=== PATIENT | female | born 1940 | race African-American/Black ===

== ENCOUNTER 2016-10-23 01:58 | Inpatient (IN) | payer MEDICARE, OTHER ==
[~2016-10-23] VITALS: Ht 172.7 cm; Wt 104.8 kg
[2016-10-23 02:30] LABS: BILIRUBIN,URINE NEGATIVE (NEG); GLUCOSE,URINE NEGATIVE (NEG); NITRITE,URINE NEGATIVE (NEG); PH,URINE 5.5; PROTEIN,URINE NEGATIVE (NEG-TRACE); UROBILINOGEN,URINE 0.2 mg/dL (0.2 mg/dL)
[2016-10-23] MEDS ORDERED: IV NORMAL SALINE 500ML BAG 500 ML IV ONE (02:30)
[2016-10-23 02:50] LABS: BACTERIA,URINE 0 /HPF (0-FEW); SQUAMOUS EPITHELIAL CELL,UR FEW /LPF; WBC,URINE OCC /HPF (0-4)
[2016-10-23 02:51] LABS: BASO # 0.1 x10^3/uL (0.0-0.2); BASO % 1 % (0-3); EOS % 0 % (0-3); HEMATOCRIT 37.6 % (36.0-47.0); HEMOGLOBIN 12.7 g/dL (12.0-15.5); LYMPH % 17 % (24-48); MEAN CORPUSCULAR HEMOGLOBIN 27 pg (25-35); MEAN CORPUSCULAR HGB CONC 34 g/dL (31-37); MEAN CORPUSCULAR VOLUME 80 fL (79-100); MONO % 4 % (0-9); NEUT % 78 % (31-73); PLATELET COUNT 274 x10^3/uL (140-400); RED BLOOD COUNT 4.69 x10^6/uL (3.50-5.40); RED CELL DISTRIBUTION WIDTH 17.2 % (11.5-14.5); WHITE BLOOD COUNT 6.2 x10^3/uL (4.0-11.0)
[2016-10-23 03:02] LABS: CALCIUM 9.5 mg/dL (8.5-10.1); CREATININE 1.1 mg/dL (0.6-1.0); GFR 58.7; POTASSIUM 4.6 mmol/L (3.5-5.1)
[2016-10-23 03:07] LABS: ALBUMIN 3.4 g/dL (3.4-5.0); ALBUMIN/GLOBULIN RATIO 0.8 (1.0-1.7); TOTAL BILIRUBIN 0.3 mg/dL (0.2-1.0); TOTAL PROTEIN 7.9 g/dL (6.4-8.2)
[2016-10-23 03:10] LABS: PROTHROMBIN TIME PATIENT 12.6 SEC (11.7-14.0)
[2016-10-23] MEDS ORDERED: VANCOMYCIN PER PHARMACY MC PRN (03:45)
[2016-10-23] MEDS ORDERED: PIP/TAZO PER PHARMACY MC PRN (03:45)
[2016-10-23] MEDS ORDERED: levOFLOXacin PER PHARMACY 1 EACH EACH MC PRN (03:45)
[2016-10-23] MEDS ORDERED: ONDANSETRON PF 4 MG/2 ML VIAL. IV PRN (04:00)
[2016-10-23] MEDS ORDERED: PIPERACILLIN/TAZOBACTAM 3.375 GM in IV NORMAL SALINE 50ML 50 ML IV ONE (04:00)
[2016-10-23] MEDS ORDERED: ASPIRIN 325 MG TABLET PO ONE (04:00)
[2016-10-23] MEDS ORDERED: ACETAMINOPHEN 325 MG TABLET. PO PRN (04:00)
[2016-10-23] MEDS ORDERED: VANCOMYCIN 2 GM in IV NORMAL SALINE 500ML BAG 500 ML IV ONE (04:30)
--- NOTE | 2016-10-23 04:33 | ACF ---
Admit Criteria Forms Admit Criteria Forms Admit Criteria Forms MENTAL STATUS CHANGE Clinical Indications for Inpatient Care (Place 'X' for any and all applicable criteria): Ongoing inpatient care may be needed for 1 or more of the following(1)(2)(3)(5)( 6): [ ]I. Suspected serious etiology (eg, medical disorder, RECONCILIATION MACHINE OPERATOR event) of altered mental status [ ]II. Danger to self or others not manageable at lower level of care [ ]III. Grave disability (eg, inability to perform self care necessary at lower level of care) [ ]IV. Agitation or inappropriate behavior interfering with care for primary condition (eg, attempting to discontinue lines or drains prematurely, unable to cooperate with respiratory care) [ ]V. Delirium [A] [D][E] as described by 1 or more of the following(26): [ ]a) Delirium due to alcohol or sedative [F] withdrawal [ ]b) Delirium of uncertain etiology that has not responded to appropriate empiric treatment [ ]c) Delirium that prevents performance of a life-sustaining function (eg, feeding or hydrating oneself) [X ]. General contraindications and/or Inappropriate clinical situations for Observational Care in patients with Mental Status Change, when ANY ONE of the following is required: [ X]a) Prediction of prolongation of LOS based on ANY ONE of the following may be considered as a contraindication for observational care 2, 3, 4, 5, 6, 7, 8, 9, 10, 11 [X ]i) Age > 65 yrs. [X ]ii) Patient arriving by ambulance [ ]iii) Patient with high acuity [ ]iv) Patient requiring vital sign monitoring [ ]v) Patient on IV medication [ ]b) Systolic blood pressures greater than or equal to 180mmHg 3, 12 [ ]c) Patient with altered mental status including delirium and other alteration of consciousness, (3) [ ]d) Patient whose discharge disposition will be to a penitentiary home or rehabilitation home should not be managed in Emergency Department Observation Unit. CMS rule requires 3 days hospital stay before such placement.3,13 [ ]e) Patient with failure to thrive due to broad array of etiologies 3,16,17 [ ]f) Inability to ambulate 3,14 Extended stay beyond goal length of stay for the primary condition may be needed until ALL of the following are present(3)(5): [ ]a) Underlying medical etiology of mental status change is absent, or has been established and adequately treated [ ]b) Danger to self or others is absent or manageable at lower level of care. [ ]c) Behavior crisis management, including physical or chemical restraints, is not required or available at lower level of car [ ]d) Substance or alcohol withdrawal is absent or manageable at lower level of care. [ ]e) Behavioral symptoms (eg, agitation, somnolence, inappropriate behavior) are absent, or are manageable at lower level of care. The original [facility] content created by [facility] has been revised. The portions of the content which have been revised are identified through the use of italic text or in bold, and [facility] has neither reviewed nor approved the modified material. All other unmodified content is copyright [facility]. Please see references footnoted in the original [facility] [employer] edition 2016 MARK PEDERSEN October 23, 2016 04:33
--- NOTE | 2016-10-23 04:39 | RAD ---
INDICATION: Altered mental status COMPARISON: None TECHNIQUE: Axial CT images obtained through the head. One or more of the following individualized dose reduction techniques were utilized for this examination: 1. Automated exposure control; 2. Adjustment of the mA and/or kV according to patient size; 3. Use of iterative reconstruction technique. FINDINGS: No midline shift. Ventricles and sulci are prominent. Basilar cistern patent. No gross hemorrhage or intracranial mass. No displaced skull fracture. Regions of low attenuation of the white matter. IMPRESSION: No acute intracranial hemorrhage. Regions of low attenuation of the white matter. Nonspecific but frequently secondary to chronic small vessel ischemic disease. Subcutaneous induration left frontal region, could be a small scalp contusion. Electronically signed by: Haseeb Meek (October 23, 2016 04:37:29)
[2016-10-23 04:40] VITALS: BP 133/60
--- NOTE | 2016-10-23 04:58 | PHYS DOC ---
Past Medical History Past Medical History: Diabetes-Type II, Hypertension, Renal Disease Additional Past Medical Histor: GENERALIZED WEAKNESS, OSTEOPOROSIS Past Surgical History: Appendectomy, Cholecystectomy, Hysterectomy Alcohol Use: None Drug Use: None Adult General Chief Complaint Chief Complaint: NEURO SYMPTOMS/DEFICITS HPI HPI Patient is a 76 year old female who presents with altered mental status. Patient sent for evaluation from [facility] where she was noted to be confused with possible facial droop, & slurred speech per the patient. Unknown time of symptom onset or last known normal. She thinks her speech has progressively worsened over days. She denies extremity numbness/weakness. Denies fevers/chills, headache, vision changes, chest pain, shortness of breath , abdominal pain, vomiting, diarrhea, dysuria. She has history of DM & HTN. PCP is at [facility]. Review of Systems Review of Systems Constitutional: Denies fever or chills Eyes: Denies change in visual acuity HENT: Denies nasal congestion or sore throat Respiratory: Denies cough or shortness of breath Cardiovascular: Denies chest pain or edema GI: Denies abdominal pain, nausea, vomiting, bloody stools or diarrhea : Denies dysuria or hematuria Musculoskeletal: Denies back pain or joint pain Integument: Denies rash or skin lesions Neurologic: Denies headache, reports slurred speech & facial droop Current Medications Current Medications Current Medications Medications (Trade) Dose Ordered Sig/Rose Start Time Stop Time Status Last Admin Dose Admin Sodium Chloride 500 ml @ 500 mls/hr 1X ONCE 10/23/16 02:30 10/23/16 03:29 DC 10/23/16 02:40 500 MLS/HR Allergies Allergies Allergies Coded Allergies Type Severity Reaction Last Updated Verified No Known Drug Allergies 10/23/16 No Physical Exam Physical Exam Constitutional: obese, agitated, non-toxic appearance. HENT: Normocephalic, atraumatic, bilateral external ears normal, oropharynx moist, no tonsillar enlargement/exudate, nose normal. appears to have slight right sided facial droop at the mouth, but normal symmetric smile. Eyes: PERRLA, EOMI, conjunctiva normal, no discharge. Neck: supple, no stridor. Cardiovascular: RRR, no murmurs, no edema. Lungs & Thorax: LCTAB, no wheezing, no respiratory distress. Abdomen: soft, nontender, nondistended. Skin: Warm, dry, no erythema, no rash. Back: No tenderness. Extremities: No tenderness, no edema. Neurologic: Alert and oriented X 3, CN2-12 grossly intact, symmetric strength/ sensation to UE & LE, refuses to participate in finger to nose, heel to mccann, palmar drift assessments. speech difficult to understand at times but quite clear during angry outbursts. Psychologic: agitated at times Current Patient Data Vital Signs Vital Signs Date Time Temp Pulse Resp B/P (MAP) Pulse Ox O2 Delivery O2 Flow Rate FiO2 10/23/16 03:00 78 22 187/87 (120) 94 Room Air 10/23/16 02:28 93.8 93.8 Lab Values Laboratory Tests Test 10/23/16 02:22 10/23/16 02:39 Urine Collection Type U cath Urine Color Yellow Urine Clarity Clear Urine pH 5.5 Urine Specific [place]ike 1.015 Urine Protein Negative mg/dL (NEG-TRACE) Urine Glucose (UA) Negative mg/dL (NEG) Urine Ketones (Stick) Negative mg/dL (NEG) Urine Blood Small (NEG) Urine Nitrite Negative (NEG) Urine Bilirubin Negative (NEG) Urine Urobilinogen Dipstick 0.2 mg/dL (0.2 mg/dL) Urine Leukocyte Esterase Negative (NEG) Urine RBC 3-5 /HPF (0-2) Urine WBC Occ /HPF (0-4) Urine Squamous Epithelial Cells Few /LPF Urine Bacteria 0 /HPF (0-FEW) Urine Mucus Mod /LPF White Blood Count 6.2 x10^3/uL (4.0-11.0) Red Blood Count 4.69 x10^6/uL (3.50-5.40) Hemoglobin 12.7 g/dL (12.0-15.5) Hematocrit 37.6 % (36.0-47.0) Mean Corpuscular Volume 80 fL (79-100) Mean Corpuscular Hemoglobin 27 pg (25-35) Mean Corpuscular Hemoglobin Concent 34 g/dL (31-37) Red Cell Distribution Width 17.2 % (11.5-14.5) H Platelet Count 274 x10^3/uL (140-400) Neutrophils (%) (Auto) 78 % (31-73) H Lymphocytes (%) (Auto) 17 % (24-48) L Monocytes (%) (Auto) 4 % (0-9) Eosinophils (%) (Auto) 0 % (0-3) Basophils (%) (Auto) 1 % (0-3) Neutrophils # (Auto) 4.8 x10^3uL (1.8-7.7) Lymphocytes # (Auto) 1.0 x10^3/uL (1.0-4.8) Monocytes # (Auto) 0.3 x10^3/uL (0.0-1.1) Eosinophils # (Auto) 0.0 x10^3/uL (0.0-0.7) Basophils # (Auto) 0.1 x10^3/uL (0.0-0.2) Prothrombin Time 12.6 SEC (11.7-14.0) Prothrombin Time INR 1.0 (0.8-1.1) PTT 32 SEC (24-38) Sodium Level 140 mmol/L (136-145) Potassium Level 4.6 mmol/L (3.5-5.1) Chloride Level 103 mmol/L (98-107) Carbon Dioxide Level 32 mmol/L (21-32) Anion Gap 5 (6-14) L Blood Urea Nitrogen 27 mg/dL (7-20) H Creatinine 1.1 mg/dL (0.6-1.0) H Estimated GFR (Cockcroft-Gault) 58.7 BUN/Creatinine Ratio 25 (6-20) H Glucose Level 165 mg/dL (70-99) H Lactic Acid Level 1.4 mmol/L (0.4-2.0) Calcium Level 9.5 mg/dL (8.5-10.1) Total Bilirubin 0.3 mg/dL (0.2-1.0) Aspartate Amino Transferase (AST) 23 U/L (15-37) Alanine Aminotransferase (ALT) 26 U/L (14-59) Alkaline Phosphatase 123 U/L (46-116) H Ammonia < 10 mcmol/L (11-34) L Troponin I Quantitative < 0.017 ng/mL (0.000-0.055) Total Protein 7.9 g/dL (6.4-8.2) Albumin 3.4 g/dL (3.4-5.0) Albumin/Globulin Ratio 0.8 (1.0-1.7) L Thyroid Stimulating Hormone (TSH) 0.775 uIU/mL (0.358-3.74) Salicylates Level < 2.8 mg/dL (2.8-20.0) L Salicylate Last Dose Date Unk Salicylate Last Dose Time Unk Acetaminophen Level 5.8 mcg/ml (10-30) L Acetaminophen Last Dose Date Unk Acetaminophen Last Dose Time Unk Laboratory Tests 10/23/16 02:39 Laboratory Tests 10/23/16 02:39 EKG EKG interpreted by me: NSR rate 75, no acute ST/T wave changes, Q waves in 3, aVF, V2-V3, normal intervals, no ectopy.[] Radiology/Procedures Radiology/Procedures PROCEDURE: CT HEAD WO CONTRAST INDICATION: Altered mental status COMPARISON: None TECHNIQUE: Axial CT images obtained through the head. One or more of the following individualized dose reduction techniques were utilized for this examination: 1. Automated exposure control; 2. Adjustment of the mA and/or kV according to patient size; 3. Use of iterative reconstruction technique. FINDINGS: No midline shift. Ventricles and sulci are prominent. Basilar cistern patent. No gross hemorrhage or intracranial mass. No displaced skull fracture. Regions of low attenuation of the white matter. IMPRESSION: No acute intracranial hemorrhage. Regions of low attenuation of the white matter. Nonspecific but frequently secondary to chronic small vessel ischemic disease. Subcutaneous induration left frontal region, could be a small scalp contusion. Electronically signed by: Haseeb Shaikh (October 23, 2016 04:37:29) DICTATED and SIGNED BY: HASEEB SHAIKH MD DATE: 10/23/16 0437 CXR: interpreted by me: cardiomegaly, suspect LLL infiltrate, no pneumothorax. [] Course & Med Decision Making Course & Med Decision Making Pertinent Labs and Imaging studies reviewed. (See chart for details) The patient presents with altered mental status. She is angry & reluctant to participate in exam. Found to be hypothermic, placed denis hugger & gave warm fluids. CXR shows LLL infiltrate, will obtain blood cultures & lactic acid given hypothermia, treat for healthcare associated pneumonia with vancomycin, zosyn, & levaquin. I do not appreciate definite neuro deficit on exam but will give aspirin here & consult neurology. In the absence of focal findings & unknown timeline of symptoms, this patient is not a candidate for TPA. Recommend admission to the hospital for further evaluation & treatment. The patient agrees with plan of care. Discussed with Dr. Gee who agrees to admit to inpatient status. The patient is admitted in stable condition. [] Dragon Disclaimer Dragon Disclaimer This electronic medical record was generated, in whole or in part, using a voice recognition dictation system. Departure Departure Impression: Primary Impression: Altered mental status Additional Impressions: Hypothermia Healthcare-associated pneumonia Slurred speech Essential hypertension Disposition: 09 ADMITTED INPATIENT Admitting Physician: Edna Gee Condition: STABLE Problem Qualifiers MAGED ARZOLA MD October 23, 2016 04:58
[2016-10-23] MEDS: fentaNYL PF VIAL 100 MCG/2 ML VIAL IV PRN ×3 (05:29→14:53)
--- NOTE | 2016-10-23 05:45 | ACF ---
Admission Forms Criteria MENTAL STATUS CHANGE Clinical Indications for Inpatient Care (Place 'X' for any and all applicable criteria): Ongoing inpatient care may be needed for 1 or more of the following(1)(2)(3)(5)( 6): [ ]I. Suspected serious etiology (eg, medical disorder, EMAIL CAMPAIGN SPECIALIST event) of altered mental status [ ]II. Danger to self or others not manageable at lower level of care [ ]III. Grave disability (eg, inability to perform self care necessary at lower level of care) [ ]IV. Agitation or inappropriate behavior interfering with care for primary condition (eg, attempting to discontinue lines or drains prematurely, unable to cooperate with respiratory care) [ ]V. Delirium [A] [D][E] as described by 1 or more of the following(26): [ ]a) Delirium due to alcohol or sedative [F] withdrawal [ ]b) Delirium of uncertain etiology that has not responded to appropriate empiric treatment [ ]c) Delirium that prevents performance of a life-sustaining function (eg, feeding or hydrating oneself) [X]. General contraindications and/or Inappropriate clinical situations for Observational Care in patients with Mental Status Change, when ANY ONE of the following is required: [ ]a) Prediction of prolongation of LOS based on ANY ONE of the following may be considered as a contraindication for observational care 2, 3, 4, 5, 6, 7, 8, 9, 10, 11 [ ]i) Age > 65 yrs. [ ]ii) Patient arriving by ambulance [ ]iii) Patient with high acuity [ ]iv) Patient requiring vital sign monitoring [ ]v) Patient on IV medication [X]b) Systolic blood pressures greater than or equal to 180mmHg 3, 12 [ ]c) Patient with altered mental status including delirium and other alteration of consciousness, (3) [ ]d) Patient whose discharge disposition will be to a retirement home or rehabilitation home should not be managed in Emergency Department Observation Unit. CMS rule requires 3 days hospital stay before such placement.3,13 [ ]e) Patient with failure to thrive due to broad array of etiologies 3,16,17 [ ]f) Inability to ambulate 3,14 Extended stay beyond goal length of stay for the primary condition may be needed until ALL of the following are present(3)(5): [ ]a) Underlying medical etiology of mental status change is absent, or has been established and adequately treated [ ]b) Danger to self or others is absent or manageable at lower level of care. [ ]c) Behavior crisis management, including physical or chemical restraints, is not required or available at lower level of car [ ]d) Substance or alcohol withdrawal is absent or manageable at lower level of care. [ ]e) Behavioral symptoms (eg, agitation, somnolence, inappropriate behavior) are absent, or are manageable at lower level of care. The original [facility] [employer] content created by [facility] [employer] has been revised. The portions of the content which have been revised are identified through the use of italic text or in bold, and [facility] has neither reviewed nor approved the modified material. All other unmodified content is copyright [facility] [employer]. Please see references footnoted in the original [facility] edition 2016 Admission Criteria Met?: Yes DANIKA FLORES October 23, 2016 05:45
[2016-10-23] MEDS ORDERED: MAGNESIUM HYDROXIDE 2,400 MG/30 ML ORAL.SUSP. PO PRN (06:00)
[2016-10-23] MEDS ORDERED: SODIUM PHOSPHATES 19/7GM 133 ML ENEMA. PR PRN (06:00)
[2016-10-23] MEDS ORDERED: BISACODYL 10 MG SUPP.RECT. PR PRN (06:00)
[2016-10-23] MEDS ORDERED: POLYVINYL ALCOHOL 1.4% OPHTH SOLUTION 15ML BOTTLE. OU PRN (06:00)
[2016-10-23] MEDS ORDERED: MAG HYDROX/ALUMINUM HYD/SIMETH 30 ML ORAL.SUSP PO PRN (06:00)
[2016-10-23] MEDS ORDERED: ACETAMINOPHEN 500 MG TABLET PO PRN (06:00)
[2016-10-23] MEDS ORDERED: MECLIZINE HCL 12.5 MG TABLET. PO PRN (06:00)
--- NOTE | 2016-10-23 06:28 | EKG ---
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
[2016-10-23 07:00] VITALS: BP 117/60
[2016-10-23] MEDS ORDERED: SODIUM PHOSPHATES 19/7GM 133 ML ENEMA. PR ONE (07:00)
[2016-10-23] MEDS ORDERED: BISACODYL 10 MG SUPP.RECT. PR ONE (07:00)
[2016-10-23] MEDS ORDERED: ACETAMINOPHEN/CODEINE 300/30MG TABLET. PO ONE (07:00)
--- NOTE | 2016-10-23 07:33 | RAD ---
Portable chest, 10/23/2016: History: Altered mental status Comparison is made to a study from 11/11/2004. The heart is at the upper limits of normal in size. The pulmonary vascularity is normal. There is mild streaky atelectasis in the lung bases with partial obscuration of the left hemidiaphragm. The upper lung sarkar are clear. No pleural fluid is seen. Moderate spurring is present in the spine. There are moderate degenerative changes at both shoulders. A nonspecific sclerotic focus is partially visualized in the proximal left humerus. IMPRESSION: Mild bibasilar atelectasis.
[2016-10-23] MEDS: ASPIRIN 325 MG TABLET PO SCH (08:00)
--- NOTE | 2016-10-23 08:09 | PDOC1 ---
History and Physical Date of Admission Date of Admission DATE: 10/23/16 TIME: 08:03 Identification/Chief Complaint Chief Complaint slurred speech Problems: Source Source: Chart review, Patient History of Present Illness History of Present Illness Miss Boggs is a 76 year old female who presents with altered mental status. She has multiple complaints about the service at [facility], and has mult complaints this AM about how we are checking her blood sugar and how we need to get her up and feed her. She was sent for evaluation from [facility] where she was noted to be confused with possible facial droop, & slurred speech. She reports all of these are resolved, and she feels well. She thinks she just needs some food and a wheelchair, but seems total assist to transfer per nusing. Reports her speech had progressively worsened over days. She denies extremity numbness/weakness. PCP is at Past Medical History Cardiovascular: CHF, HTN Musculoskeletal: low back pain Endocrine: Diabetes Family History Family History: Diabetes Social History Smoke: No ALCOHOL: none Drugs: None Current Problem List Problem List Problems Medical Problems: (1) Altered mental status Status: Acute (2) Essential hypertension Status: Acute (3) Healthcare-associated pneumonia Status: Acute (4) Hypothermia Status: Acute (5) Slurred speech Status: Acute Problems: Current Medications Current Medications Current Medications Sodium Chloride 500 ml @ 500 mls/hr 1X ONCE IV Last administered on 02:40; Start 10/23/16 at 02:30; Stop 10/23/16 at 03:29; Status DC Aspirin (Afshin Aspirin) 325 mg 1X ONCE PO Last administered on 10/23/16 04:00 ; Start 10/23/16 at 04:00; Stop 10/23/16 at 04:01; Status DC Vancomycin HCl (Vanco Per Pharmacy) 1 each PRN DAILY PRN MC SEE COMMENTS Last administered on 10/23/16 06:01; Start 10/23/16 at 03:45 Piperacillin Sod/ Tazobactam Sod (Zosyn Per Pharmacy) 1 each PRN DAILY PRN MC SEE COMMENTS; Start 10/23/16 at 03:45 Levofloxacin/ Dextrose (Levaquin Per Pharmacy) 1 each PRN DAILY PRN MC SEE COMMENTS; Start 10/23/16 at 03:45 Vancomycin HCl 2 gm/Sodium Chloride 500 ml @ 250 mls/hr 1X ONCE IV Last administered on 10/23/16 05:34; Start 10/23/16 at 04:30; Stop 10/23/16 at 06:29 ; Status DC Piperacillin Sod/ Tazobactam Sod 3.375 gm/Sodium Chloride 50 ml @ 100 mls/hr 1X ONCE IV Last administered on 10/23/16 04:00; Start 10/23/16 at 04:00; Stop 10/23/16 at 04:29; Status DC Levofloxacin/ Dextrose 150 ml @ 100 mls/hr 1X ONCE IV Last administered on 05:33; Start 10/23/16 at 05:00; Stop 10/23/16 at 06:29; Status DC Ondansetron HCl (Zofran) 4 mg PRN Q8HRS PRN IV NAUSEA/VOMITING; Start 10/23/16 at 04:00; Stop 10/24/16 at 03:59 Fentanyl Citrate (Fentanyl 2ml Vial) 50 mcg PRN Q2HR PRN IV SEVERE PAIN Last administered on 10/23/16 05:29; Start 10/23/16 at 04:00; Stop 10/24/16 at 03:59 Acetaminophen (Tylenol) 650 mg PRN Q4HRS PRN PO FEVER; Start 10/23/16 at 04:00 ; Stop 10/24/16 at 03:59 Levofloxacin/ Dextrose 150 ml @ 100 mls/hr Q24H IV ; Start 10/24/16 at 05:00 Piperacillin Sod/ Tazobactam Sod 3.375 gm/Sodium Chloride 50 ml @ 100 mls/hr Q6HRS IV ; Start 10/23/16 at 12:00 Vancomycin HCl 1.5 gm/Sodium Chloride 500 ml @ 250 mls/hr Q24H IV ; Start 10/24 at 06:00 Vancomycin HCl 1 each 1X ONCE MC ; Start 10/25/16 at 05:30; Stop 10/25/16 at 05 :31 Baclofen (Lioresal) 5 mg TID PO ; Start 10/23/16 at 09:00 Celecoxib (CeleBREX) 200 mg DAILY PO ; Start 10/23/16 at 09:00 Carvedilol (Coreg) 6.25 mg BIDWMEALS PO ; Start 10/23/16 at 08:00 Acetaminophen (Tylenol) 650 mg PRN Q6HRS PRN PO MILD PAIN / TEMP; Start at 06:00 Amlodipine Besylate (Norvasc) 10 mg DAILY PO ; Start 10/23/16 at 09:00 Losartan Potassium (Cozaar) 100 mg DAILY PO ; Start 10/23/16 at 09:00 Ergocalciferol (Vitamin D2) 50,000 unit WEEKLY PO ; Start 10/23/16 at 09:00 Multi-Ingred Cream/Lotion/Oil/ Oint (Hydrocerin) 1 fabian DAILY08 TP ; Start at 08:00 Diclofenac Sodium (Voltaren) 1 fabian TID TP ; Start 10/23/16 at 09:00 Polyethylene Glycol (miraLAX PACKET) 17 gm DAILY PO ; Start 10/23/16 at 09:00 Docusate Sodium (Colace) 100 mg DAILY PO ; Start 10/23/16 at 09:00 Artificial Tears (Artificial Tears) 1 drop PRN Q24HRS PRN OU DRY EYE; Start at 06:00 Artificial Tears (Artificial Tears) 1 drop TID OU ; Start 10/23/16 at 09:00 Lidocaine (Lidoderm) 1 patch DAILY TD ; Start 10/23/16 at 09:00 Furosemide (Lasix) 60 mg DAILY PO ; Start 10/23/16 at 09:00 Linagliptin (Tradjenta) 5 mg DAILY PO ; Start 10/23/16 at 09:00 Duloxetine HCl (Cymbalta) 60 mg DAILY PO ; Start 10/23/16 at 09:00 Aspirin (Afshin Aspirin) 81 mg DAILYWBKFT PO ; Start 10/23/16 at 08:00 Atorvastatin Calcium (Lipitor) 40 mg QHS PO ; Start 10/23/16 at 21:00 Magnesium Hydroxide (Milk Of Magnesia) 2,400 mg PRN DAILY PRN PO CONSTIPATION; Start 10/23/16 at 06:00 Bisacodyl (Dulcolax Supp) 10 mg PRN DAILY PRN [place] CONSTIPATION; Start 10/23/16 at 06:00 Sodium Monofluorophosphate (Fleet Adult) 133 ml PRN DAILY PRN KS CONSTIPATION; Start 10/23/16 at 06:00 Al Hydroxide/Mg Hydroxide (Mylanta Plus Xs) 30 ml PRN Q4HRS PRN PO HEARTBURN / GAS; Start 10/23/16 at 06:00 Bisacodyl (Dulcolax Supp) 10 mg 1X ONCE KS ; Start 10/23/16 at 07:00; Stop at 07:01; Status DC Sodium Monofluorophosphate (Fleet Adult) 133 ml 1X ONCE KS ; Start 10/23/16 at 07:00; Stop 10/23/16 at 07:01; Status DC Acetaminophen/ Codeine Phosphate (Tylenol #3) 1 tab 1X ONCE PO ; Start at 07:00; Stop 10/23/16 at 07:01; Status DC Acetaminophen/ Hydrocodone Bitart (Lortab 5/325) 1 tab PRN Q8HRS PRN PO SEVERE PAIN; Start 10/23/16 at 06:00 Meclizine HCl (Antivert) 25 mg PRN Q8HRS PRN PO DIZZINESS; Start 10/23/16 at 06 :00 Insulin Detemir (Levemir) 30 units QHS SQ ; Start 10/23/16 at 21:00 Insulin Aspart (NovoLOG) 15 units TIDAC SQ ; Start 10/23/16 at 07:30 Allergies Allergies: Coded Allergies: No Known Drug Allergies (Unverified , 10/23/16) ROS Review of System Denies fevers/chills, headache, vision changes, chest pain, shortness of breath , abdominal pain, vomiting, diarrhea, dysuria. General: No: Chills, Night Sweats, Fatigue, Malaise, Appetite, Other PSYCHOLOGICAL ROS: YES: Irritablity, Sleep disturbances, No: Anxiety, Behavioral Disorder, Concentration difficultie, Decreased libido , Depression, Disorientation, Hallucinations, Hostility, Memory difficulties, Mood Swings, Obsessive thoughts, Other Eyes: No Blurry vision, No Decreased vision, No Double vision, No Dry eyes, No Excessive tearing, No Eye Pain, No Itchy Eyes, No Loss of vision, No Photophobia , No Scotomata, No Uses contacts, No Uses glasses, No Other HEENT: No: Heacaches, Visual Changes, Hearing change, Nasal congestion, Nasal discharge, Oral lesions, Sinus pain, Sore Throat, Epistaxis, Sneezing, Snoring, Tinnitus, Vertigo, Vocal changes, Other Cardiovascular: No Chest Pain, No Palpitations, No Orthopnea, No Paroxysmal Noc. Dyspnea, No Edema, No Lt Headedness, No Other Gastrointestinal: Yes Nausea, No Vomiting, No Abdominal Pain, No Diarrhea, No Constipation, No Melena, No Hematochezia, No Other Genitourinary: No Dysuria, No Frequency, No Incontinence, No Hematuria, No Retention, No Discharge, No Urgency, No Pain, No Flank Pain, No Other, No , No , No , No , No , No , No Musculoskeletal: No Gait Disturbance, No Joint Pain, No Joint Stiffness, No Joint Swelling, No Muscle Pain, No Muscular Weakness, No Pain In:, No Swelling In:, No Other Neurological: No Behavorial Changes, No Bowel/Bladder ControlChng, No Confusion , No Dizziness, No Gait Disturbance, No Headaches, No Impaired Coord/balance, No Memory Loss, No Numbness/Tingling, No Seizures, No Speech Problems, No Tremors, No Visual Changes, No Weakness, No Other Skin: Yes Dry Skin, No Eczema, No Hair Changes, No Lumps, No Mole Changes, No Mottling, No Nail Changes, No Pruritus, No Rash, No Skin Lesion Changes, No Other, No Acne Physical Exam General: Alert, Oriented X3, No acute distress, Other (not very cooperative) HEENT: Atraumatic, PERRLA, EOMI, Mucous membr. moist/pink, Other (oxpthalmos) Lungs: Clear to auscultation Heart: S1S2, no murmurs Abdomen: Normal bowel sounds, Soft Extremities: No clubbing, Normal pulses Skin: No rashes Neuro: Normal gait, Sensation intact, Cranial nerves 3-12 NL Vitals Vitals Vital Signs Date Time Temp Pulse Resp B/P (MAP) Pulse Ox O2 Delivery O2 Flow Rate FiO2 10/23/16 06:50 Room Air 10/23/16 05:59 20 100 10/23/16 04:40 97.5 96 133/60 (84) 97.5 Labs Labs Laboratory Tests Test 10/23/16 02:22 10/23/16 02:39 Urine Collection Type U cath Urine Color Yellow Urine Clarity Clear Urine pH 5.5 Urine Specific [place] 1.015 Urine Protein Negative mg/dL (NEG-TRACE) Urine Glucose (UA) Negative mg/dL (NEG) Urine Ketones (Stick) Negative mg/dL (NEG) Urine Blood Small (NEG) Urine Nitrite Negative (NEG) Urine Bilirubin Negative (NEG) Urine Urobilinogen Dipstick 0.2 mg/dL (0.2 mg/dL) Urine Leukocyte Esterase Negative (NEG) Urine RBC 3-5 /HPF (0-2) Urine WBC Occ /HPF (0-4) Urine Squamous Epithelial Cells Few /LPF Urine Bacteria 0 /HPF (0-FEW) Urine Mucus Mod /LPF White Blood Count 6.2 x10^3/uL (4.0-11.0) Red Blood Count 4.69 x10^6/uL (3.50-5.40) Hemoglobin 12.7 g/dL (12.0-15.5) Hematocrit 37.6 % (36.0-47.0) Mean Corpuscular Volume 80 fL (79-100) Mean Corpuscular Hemoglobin 27 pg (25-35) Mean Corpuscular Hemoglobin Concent 34 g/dL (31-37) Red Cell Distribution Width 17.2 % (11.5-14.5) Platelet Count 274 x10^3/uL (140-400) Neutrophils (%) (Auto) 78 % (31-73) Lymphocytes (%) (Auto) 17 % (24-48) Monocytes (%) (Auto) 4 % (0-9) Eosinophils (%) (Auto) 0 % (0-3) Basophils (%) (Auto) 1 % (0-3) Neutrophils # (Auto) 4.8 x10^3uL (1.8-7.7) Lymphocytes # (Auto) 1.0 x10^3/uL (1.0-4.8) Monocytes # (Auto) 0.3 x10^3/uL (0.0-1.1) Eosinophils # (Auto) 0.0 x10^3/uL (0.0-0.7) Basophils # (Auto) 0.1 x10^3/uL (0.0-0.2) Prothrombin Time 12.6 SEC (11.7-14.0) Prothromb Time International Ratio 1.0 (0.8-1.1) Activated Partial Thromboplast Time 32 SEC (24-38) Sodium Level 140 mmol/L (136-145) Potassium Level 4.6 mmol/L (3.5-5.1) Chloride Level 103 mmol/L (98-107) Carbon Dioxide Level 32 mmol/L (21-32) Anion Gap 5 (6-14) Blood Urea Nitrogen 27 mg/dL (7-20) Creatinine 1.1 mg/dL (0.6-1.0) Estimated GFR (Cockcroft-Gault) 58.7 BUN/Creatinine Ratio 25 (6-20) Glucose Level 165 mg/dL (70-99) Lactic Acid Level 1.4 mmol/L (0.4-2.0) Calcium Level 9.5 mg/dL (8.5-10.1) Total Bilirubin 0.3 mg/dL (0.2-1.0) Aspartate Amino Transf (AST/SGOT) 23 U/L (15-37) Alanine Aminotransferase (ALT/SGPT) 26 U/L (14-59) Alkaline Phosphatase 123 U/L (46-116) Ammonia < 10 mcmol/L (11-34) Troponin I Quantitative < 0.017 ng/mL (0.000-0.055) Total Protein 7.9 g/dL (6.4-8.2) Albumin 3.4 g/dL (3.4-5.0) Albumin/Globulin Ratio 0.8 (1.0-1.7) Thyroid Stimulating Hormone (TSH) 0.775 uIU/mL (0.358-3.74) Salicylates Level < 2.8 mg/dL (2.8-20.0) Salicylate Last Dose Date Unk Salicylate Last Dose Time Unk Acetaminophen Level 5.8 mcg/ml (10-30) Acetaminophen Last Dose Date Unk Acetaminophen Last Dose Time Unk Laboratory Tests Test 10/23/16 02:22 10/23/16 02:39 Urine Collection Type U cath Urine Color Yellow Urine Clarity Clear Urine pH 5.5 Urine Specific [place] 1.015 Urine Protein Negative mg/dL (NEG-TRACE) Urine Glucose (UA) Negative mg/dL (NEG) Urine Ketones (Stick) Negative mg/dL (NEG) Urine Blood Small (NEG) Urine Nitrite Negative (NEG) Urine Bilirubin Negative (NEG) Urine Urobilinogen Dipstick 0.2 mg/dL (0.2 mg/dL) Urine Leukocyte Esterase Negative (NEG) Urine RBC 3-5 /HPF (0-2) Urine WBC Occ /HPF (0-4) Urine Squamous Epithelial Cells Few /LPF Urine Bacteria 0 /HPF (0-FEW) Urine Mucus Mod /LPF White Blood Count 6.2 x10^3/uL (4.0-11.0) Red Blood Count 4.69 x10^6/uL (3.50-5.40) Hemoglobin 12.7 g/dL (12.0-15.5) Hematocrit 37.6 % (36.0-47.0) Mean Corpuscular Volume 80 fL (79-100) Mean Corpuscular Hemoglobin 27 pg (25-35) Mean Corpuscular Hemoglobin Concent 34 g/dL (31-37) Red Cell Distribution Width 17.2 % (11.5-14.5) Platelet Count 274 x10^3/uL (140-400) Neutrophils (%) (Auto) 78 % (31-73) Lymphocytes (%) (Auto) 17 % (24-48) Monocytes (%) (Auto) 4 % (0-9) Eosinophils (%) (Auto) 0 % (0-3) Basophils (%) (Auto) 1 % (0-3) Neutrophils # (Auto) 4.8 x10^3uL (1.8-7.7) Lymphocytes # (Auto) 1.0 x10^3/uL (1.0-4.8) Monocytes # (Auto) 0.3 x10^3/uL (0.0-1.1) Eosinophils # (Auto) 0.0 x10^3/uL (0.0-0.7) Basophils # (Auto) 0.1 x10^3/uL (0.0-0.2) Prothrombin Time 12.6 SEC (11.7-14.0) Prothromb Time International Ratio 1.0 (0.8-1.1) Activated Partial Thromboplast Time 32 SEC (24-38) Sodium Level 140 mmol/L (136-145) Potassium Level 4.6 mmol/L (3.5-5.1) Chloride Level 103 mmol/L (98-107) Carbon Dioxide Level 32 mmol/L (21-32) Anion Gap 5 (6-14) Blood Urea Nitrogen 27 mg/dL (7-20) Creatinine 1.1 mg/dL (0.6-1.0) Estimated GFR (Cockcroft-Gault) 58.7 BUN/Creatinine Ratio 25 (6-20) Glucose Level 165 mg/dL (70-99) Lactic Acid Level 1.4 mmol/L (0.4-2.0) Calcium Level 9.5 mg/dL (8.5-10.1) Total Bilirubin 0.3 mg/dL (0.2-1.0) Aspartate Amino Transf (AST/SGOT) 23 U/L (15-37) Alanine Aminotransferase (ALT/SGPT) 26 U/L (14-59) Alkaline Phosphatase 123 U/L (46-116) Ammonia < 10 mcmol/L (11-34) Troponin I Quantitative < 0.017 ng/mL (0.000-0.055) Total Protein 7.9 g/dL (6.4-8.2) Albumin 3.4 g/dL (3.4-5.0) Albumin/Globulin Ratio 0.8 (1.0-1.7) Thyroid Stimulating Hormone (TSH) 0.775 uIU/mL (0.358-3.74) Salicylates Level < 2.8 mg/dL (2.8-20.0) Salicylate Last Dose Date Unk Salicylate Last Dose Time Unk Acetaminophen Level 5.8 mcg/ml (10-30) Acetaminophen Last Dose Date Unk Acetaminophen Last Dose Time Unk VTE Prophylaxis Ordered VTE Prophylaxis Devices: Yes VTE Pharmacological Prophylaxi: No Assessment/Plan Assessment/Plan acute weakness and slurred speech, pt reports improved TIA, w/u and consult Neuro gen weakness and debility DM2, PT and OT and speech SHARITA GARCIA MD October 23, 2016 08:09
[2016-10-23] MEDS ORDERED: ERGOCALCIFEROL (VITAMIN D2) 50,000 UNIT CAPSULE. PO SCH (09:00)
[2016-10-23] MEDS: CELECOXIB 200 MG CAPSULE. PO SCH (09:15)
[2016-10-23] MEDS: DULoxetine HCL 30 MG CAPSULE.DR PO SCH (09:17)
[2016-10-23] MEDS: BACLOFEN 10 MG TABLET. PO SCH ×3 (09:17→20:43)
[2016-10-23] MEDS: LINAGLIPTIN 5 MG TABLET PO SCH (09:18)
[2016-10-23] MEDS: amLODIPine BESYLATE 10 MG TABLET PO SCH (09:18)
[2016-10-23] MEDS: DOCUSATE SODIUM 100 MG CAPSULE. PO SCH (09:18)
[2016-10-23] MEDS: FUROSEMIDE 40 MG TABLET. PO SCH (09:18)
[2016-10-23] MEDS: LOSARTAN POTASSIUM 50 MG TABLET. PO SCH (09:18)
[2016-10-23] MEDS: CARVEDILOL 6.25 MG TABLET. PO SCH ×2 (09:19→18:25)
[2016-10-23] MEDS: MINERAL OIL/PETROLATUM TOPICAL CREAM 113GM JAR. TP SCH (09:20)
[2016-10-23] MEDS: DICLOFENAC SODIUM 1% TOPICAL GEL 100GM TUBE. TP SCH ×3 (09:20→20:42)
[2016-10-23] MEDS: POLYETHYLENE GLYCOL 3350 17 GM PACKET. PO SCH (09:20)
[2016-10-23] MEDS: LIDOCAINE (700MG/PATCH) PATCH. TD SCH (09:21)
[2016-10-23] MEDS: POLYVINYL ALCOHOL 1.4% OPHTH SOLUTION 15ML BOTTLE. OU SCH ×3 (09:22→20:42)
--- NOTE | 2016-10-23 09:27 | RAD ---
Carotid ultrasound, 10/23/2016: History: TIA Duplex evaluation of the carotid arteries in neck was performed including grayscale, color-flow and spectral Doppler analysis. There is moderate atherosclerotic plaquing at the right carotid bifurcation and to a lesser degree on the left. The plaques are partially calcified. There is a velocity elevation in the right internal carotid artery up to 164 cm/s. The end-diastolic velocity at that level is 17 cm/s. The internal carotid artery to common carotid artery ratio is 1.2. The peak systolic velocity suggest narrowing in the 50-70% diameter range while the end diastolic velocity and the internal carotid artery to common carotid artery ratio suggests a lesser degree of narrowing. Correlation with the color images suggests that the narrowing is probably in the 0-50% diameter range. There is a moderate velocity acceleration in the proximal right external carotid artery up to 194 cm/s. On the left, the peak systolic velocity in the internal carotid artery is 94 cm/s with an end-diastolic velocity of 16 cm/s. The internal carotid to common carotid artery ratio on the left is 0.70. Antegrade flow is present in both vertebral arteries in the neck. IMPRESSION: 1. Moderate atherosclerotic plaquing at the right carotid bifurcation with underlying luminal narrowing in the proximal internal carotid artery in the 0-50% diameter range. 2. Doppler findings suggesting moderate stenosis at the origin of the right external carotid artery. 3. Mild atherosclerotic plaquing of the left carotid bifurcation with underlying luminal narrowing in the 0-50% diameter range. Note: Stenosis calculations for CT, MRA and conventional angiography are based upon determination of the distal ICA diameter in accordance with the NASCET methodology. Stenosis calculations for Doppler studies are derived from validated velocity criteria which are known to correlate with NASCET methodology of determining stenosis.
[2016-10-23] MEDS: INSULIN ASPART 300 UNITS/3 ML INSULN.PEN SQ SCH ×3 (09:39→18:30)
--- NOTE | 2016-10-23 10:03 | PDOC ---
Provider Note Provider Note dictated LLL atelectasis dc all antibiotics dc to skill IS REBECCA DE LA O MD October 23, 2016 10:03
[2016-10-23 11:00] VITALS: BP 118/42
--- NOTE | 2016-10-23 11:46 | PDOC2 ---
NEUROLOGY CONSULT Date of Admission Date of Admission DATE: 10/23/16 TIME: 11:40 Reason for Consult Reason for Consult: Altered mental status Referring Physician Referring Physician: Dr. Sands Source Source: Chart review, Patient History of Present Illness History of Present Illness The patient is a 76-year-old right-handed female transferred from [facility] with altered mental status, possible slurred speech and facial droop, side unknown. She says that she feels fine now. She feels like she is dehydrated. She admits she has not been eating well. She thinks she may have had some dysarthria off and on for several days. She has had strokes in the past but made full recovery. Past Medical History Cardiovascular: CHF, HTN GI: Constipation, GERD Psych: Anxiety, Depression Musculoskeletal: Osteoarthritis Endocrine: Diabetes, Osteoporosis Past Surgical History Past Surgical History: No pertinent history Family History Family History: No pertinent hx Social History Social History , no tobacco or alcohol, usually gets around with a wheelchair. Current Medications Current Medications Current Medications Sodium Chloride 500 ml @ 500 mls/hr 1X ONCE IV Last administered on 02:40; Start 10/23/16 at 02:30; Stop 10/23/16 at 03:29; Status DC Aspirin (Afshin Aspirin) 325 mg 1X ONCE PO Last administered on 10/23/16 04:00 ; Start 10/23/16 at 04:00; Stop 10/23/16 at 04:01; Status DC Vancomycin HCl (Vanco Per Pharmacy) 1 each PRN DAILY PRN MC SEE COMMENTS Last administered on 10/23/16 06:01; Start 10/23/16 at 03:45; Stop 10/23/16 at 10:07 ; Status DC Piperacillin Sod/ Tazobactam Sod (Zosyn Per Pharmacy) 1 each PRN DAILY PRN MC SEE COMMENTS; Start 10/23/16 at 03:45; Stop 10/23/16 at 10:56; Status DC Levofloxacin/ Dextrose (Levaquin Per Pharmacy) 1 each PRN DAILY PRN MC SEE COMMENTS; Start 10/23/16 at 03:45; Stop 10/23/16 at 10:56; Status DC Vancomycin HCl 2 gm/Sodium Chloride 500 ml @ 250 mls/hr 1X ONCE IV Last administered on 10/23/16 05:34; Start 10/23/16 at 04:30; Stop 10/23/16 at 06:29 ; Status DC Piperacillin Sod/ Tazobactam Sod 3.375 gm/Sodium Chloride 50 ml @ 100 mls/hr 1X ONCE IV Last administered on 10/23/16 04:00; Start 10/23/16 at 04:00; Stop 10/23/16 at 04:29; Status DC Levofloxacin/ Dextrose 150 ml @ 100 mls/hr 1X ONCE IV Last administered on 05:33; Start 10/23/16 at 05:00; Stop 10/23/16 at 06:29; Status DC Ondansetron HCl (Zofran) 4 mg PRN Q8HRS PRN IV NAUSEA/VOMITING; Start 10/23/16 at 04:00; Stop 10/24/16 at 03:59 Fentanyl Citrate (Fentanyl 2ml Vial) 50 mcg PRN Q2HR PRN IV SEVERE PAIN Last administered on 10/23/16 05:29; Start 10/23/16 at 04:00; Stop 10/24/16 at 03:59 Acetaminophen (Tylenol) 650 mg PRN Q4HRS PRN PO FEVER; Start 10/23/16 at 04:00 ; Stop 10/23/16 at 10:36; Status DC Levofloxacin/ Dextrose 150 ml @ 100 mls/hr Q24H IV ; Start 10/24/16 at 05:00; Stop 10/24/16 at 05:00; Status DC Piperacillin Sod/ Tazobactam Sod 3.375 gm/Sodium Chloride 50 ml @ 100 mls/hr Q6HRS IV ; Start 10/23/16 at 12:00; Stop 10/23/16 at 12:00; Status DC Vancomycin HCl 1.5 gm/Sodium Chloride 500 ml @ 250 mls/hr Q24H IV ; Start 10/24 at 06:00; Stop 10/24/16 at 06:00; Status DC Vancomycin HCl 1 each 1X ONCE MC ; Start 10/25/16 at 05:30; Stop 10/25/16 at 05 :30; Status DC Baclofen (Lioresal) 5 mg TID PO Last administered on 10/23/16 09:17; Start at 09:00 Celecoxib (CeleBREX) 200 mg DAILY PO Last administered on 10/23/16 09:15; Start 10/23/16 at 09:00 Carvedilol (Coreg) 6.25 mg BIDWMEALS PO Last administered on 10/23/16 09:19; Start 10/23/16 at 08:00 Acetaminophen (Tylenol) 650 mg PRN Q6HRS PRN PO MILD PAIN / TEMP; Start at 06:00 Amlodipine Besylate (Norvasc) 10 mg DAILY PO Last administered on 10/23/16 09: 18; Start 10/23/16 at 09:00 Losartan Potassium (Cozaar) 100 mg DAILY PO Last administered on 10/23/16 09: 18; Start 10/23/16 at 09:00 Ergocalciferol (Vitamin D2) 50,000 unit WEEKLY PO ; Start 10/23/16 at 09:00 Multi-Ingred Cream/Lotion/Oil/ Oint (Hydrocerin) 1 fabian DAILY08 TP Last administered on 10/23/16 09:20; Start 10/23/16 at 08:00 Diclofenac Sodium (Voltaren) 1 fabian TID TP Last administered on 10/23/16 09:20 ; Start 10/23/16 at 09:00 Polyethylene Glycol (miraLAX PACKET) 17 gm DAILY PO Last administered on 09:20; Start 10/23/16 at 09:00 Docusate Sodium (Colace) 100 mg DAILY PO Last administered on 10/23/16 09:18; Start 10/23/16 at 09:00 Artificial Tears (Artificial Tears) 1 drop PRN Q24HRS PRN OU DRY EYE; Start at 06:00 Artificial Tears (Artificial Tears) 1 drop TID OU Last administered on 09:22; Start 10/23/16 at 09:00 Lidocaine (Lidoderm) 1 patch DAILY TD Last administered on 10/23/16 09:21; Start 10/23/16 at 09:00 Furosemide (Lasix) 60 mg DAILY PO Last administered on 10/23/16 09:18; Start 10/23/16 at 09:00 Linagliptin (Tradjenta) 5 mg DAILY PO Last administered on 10/23/16 09:18; Start 10/23/16 at 09:00 Duloxetine HCl (Cymbalta) 60 mg DAILY PO Last administered on 10/23/16 09:17; Start 10/23/16 at 09:00 Aspirin (Afshin Aspirin) 81 mg DAILYWBKFT PO ; Start 10/23/16 at 08:00 Atorvastatin Calcium (Lipitor) 40 mg QHS PO ; Start 10/23/16 at 21:00 Magnesium Hydroxide (Milk Of Magnesia) 2,400 mg PRN DAILY PRN PO CONSTIPATION; Start 10/23/16 at 06:00 Bisacodyl (Dulcolax Supp) 10 mg PRN DAILY PRN ND CONSTIPATION; Start 10/23/16 at 06:00 Sodium Monofluorophosphate (Fleet Adult) 133 ml PRN DAILY PRN ND CONSTIPATION; Start 10/23/16 at 06:00 Al Hydroxide/Mg Hydroxide (Mylanta Plus Xs) 30 ml PRN Q4HRS PRN PO HEARTBURN / GAS; Start 10/23/16 at 06:00 Bisacodyl (Dulcolax Supp) 10 mg 1X ONCE ND ; Start 10/23/16 at 07:00; Stop at 07:01; Status DC Sodium Monofluorophosphate (Fleet Adult) 133 ml 1X ONCE ND ; Start 10/23/16 at 07:00; Stop 10/23/16 at 07:01; Status DC Acetaminophen/ Codeine Phosphate (Tylenol #3) 1 tab 1X ONCE PO Last administered on 10/23/16 09:19; Start 10/23/16 at 07:00; Stop 10/23/16 at 07:01 ; Status DC Acetaminophen/ Hydrocodone Bitart (Lortab 5/325) 1 tab PRN Q8HRS PRN PO SEVERE PAIN; Start 10/23/16 at 06:00 Meclizine HCl (Antivert) 25 mg PRN Q8HRS PRN PO DIZZINESS; Start 10/23/16 at 06 :00 Insulin Detemir (Levemir) 30 units QHS SQ ; Start 10/23/16 at 21:00 Insulin Aspart (NovoLOG) 15 units TIDAC SQ Last administered on 10/23/16 09:39 ; Start 10/23/16 at 07:30 Allergies Allergies: Coded Allergies: No Known Drug Allergies (Unverified , 10/23/16) ROS Review of System Negative for fevers, chills, weight loss, shortness of breath, chest pain, indigestion, hematochezia, melena, dysuria. Full 14-point review systems is negative. Physical Exam Physical Examination PHYSICAL EXAMINATION: Vital signs: see above. General appearance is normal and in no acute distress. HEENT: Normocephalic and nontraumatic. Eyes, nose, ears, and throat are unremarkable. Neck is supple. No lymphadenopathy. No bruits are heard over the carotid artery. No crepitus. NEUROLOGICAL EXAMINATION: Mental Status Examination: Alert. Oriented to time, place, and person. She is demanding to be taken out of her bed and placed in her wheelchair. Answers questions and follows commends. Pupils are equal round and reactive to light and accommodation. Extraocular movements are intact. Visual field exam shows no defect on the direct confrontation. No motor or sensory deficits on the facial exam. Uvula in the midline and the soft palate elevated symmetrically. No deviation of the tongue to any direction. Gross hearing is normal. Shoulder shrug normal. Muscle tone is normal. Muscle strength is 4/5. Deep tendon reflexes are 1+ all around. Plantar reflex is with flexion response bilaterally. [id number] test performance is accurate. Alternative movements are accurate. Gait not tested. Sensory exam shows stocking loss. No cerebellar signs are elicited. Vitals VITALS Vital Signs Date Time Temp Pulse Resp B/P (MAP) Pulse Ox O2 Delivery O2 Flow Rate FiO2 10/23/16 09:19 Room Air 10/23/16 09:19 102 117/60 10/23/16 07:00 98.1 22 96 98.1 Labs Labs Laboratory Tests Test 10/23/16 02:22 10/23/16 02:39 10/23/16 07:59 Urine Collection Type U cath Urine Color Yellow Urine Clarity Clear Urine pH 5.5 Urine Specific [place] 1.015 Urine Protein Negative mg/dL (NEG-TRACE) Urine Glucose (UA) Negative mg/dL (NEG) Urine Ketones (Stick) Negative mg/dL (NEG) Urine Blood Small (NEG) Urine Nitrite Negative (NEG) Urine Bilirubin Negative (NEG) Urine Urobilinogen Dipstick 0.2 mg/dL (0.2 mg/dL) Urine Leukocyte Esterase Negative (NEG) Urine RBC 3-5 /HPF (0-2) Urine WBC Occ /HPF (0-4) Urine Squamous Epithelial Cells Few /LPF Urine Bacteria 0 /HPF (0-FEW) Urine Mucus Mod /LPF White Blood Count 6.2 x10^3/uL (4.0-11.0) Red Blood Count 4.69 x10^6/uL (3.50-5.40) Hemoglobin 12.7 g/dL (12.0-15.5) Hematocrit 37.6 % (36.0-47.0) Mean Corpuscular Volume 80 fL (79-100) Mean Corpuscular Hemoglobin 27 pg (25-35) Mean Corpuscular Hemoglobin Concent 34 g/dL (31-37) Red Cell Distribution Width 17.2 % (11.5-14.5) Platelet Count 274 x10^3/uL (140-400) Neutrophils (%) (Auto) 78 % (31-73) Lymphocytes (%) (Auto) 17 % (24-48) Monocytes (%) (Auto) 4 % (0-9) Eosinophils (%) (Auto) 0 % (0-3) Basophils (%) (Auto) 1 % (0-3) Neutrophils # (Auto) 4.8 x10^3uL (1.8-7.7) Lymphocytes # (Auto) 1.0 x10^3/uL (1.0-4.8) Monocytes # (Auto) 0.3 x10^3/uL (0.0-1.1) Eosinophils # (Auto) 0.0 x10^3/uL (0.0-0.7) Basophils # (Auto) 0.1 x10^3/uL (0.0-0.2) Prothrombin Time 12.6 SEC (11.7-14.0) Prothromb Time International Ratio 1.0 (0.8-1.1) Activated Partial Thromboplast Time 32 SEC (24-38) Sodium Level 140 mmol/L (136-145) Potassium Level 4.6 mmol/L (3.5-5.1) Chloride Level 103 mmol/L (98-107) Carbon Dioxide Level 32 mmol/L (21-32) Anion Gap 5 (6-14) Blood Urea Nitrogen 27 mg/dL (7-20) Creatinine 1.1 mg/dL (0.6-1.0) Estimated GFR (Cockcroft-Gault) 58.7 BUN/Creatinine Ratio 25 (6-20) Glucose Level 165 mg/dL (70-99) Lactic Acid Level 1.4 mmol/L (0.4-2.0) Calcium Level 9.5 mg/dL (8.5-10.1) Total Bilirubin 0.3 mg/dL (0.2-1.0) Aspartate Amino Transf (AST/SGOT) 23 U/L (15-37) Alanine Aminotransferase (ALT/SGPT) 26 U/L (14-59) Alkaline Phosphatase 123 U/L (46-116) Ammonia < 10 mcmol/L (11-34) Troponin I Quantitative < 0.017 ng/mL (0.000-0.055) Total Protein 7.9 g/dL (6.4-8.2) Albumin 3.4 g/dL (3.4-5.0) Albumin/Globulin Ratio 0.8 (1.0-1.7) Thyroid Stimulating Hormone (TSH) 0.775 uIU/mL (0.358-3.74) Salicylates Level < 2.8 mg/dL (2.8-20.0) Salicylate Last Dose Date Unk Salicylate Last Dose Time Unk Acetaminophen Level 5.8 mcg/ml (10-30) Acetaminophen Last Dose Date Unk Acetaminophen Last Dose Time Unk Glucose (Fingerstick) 188 mg/dL (70-99) Laboratory Tests Test 10/23/16 02:22 10/23/16 02:39 10/23/16 07:59 Urine Collection Type U cath Urine Color Yellow Urine Clarity Clear Urine pH 5.5 Urine Specific [place] 1.015 Urine Protein Negative mg/dL (NEG-TRACE) Urine Glucose (UA) Negative mg/dL (NEG) Urine Ketones (Stick) Negative mg/dL (NEG) Urine Blood Small (NEG) Urine Nitrite Negative (NEG) Urine Bilirubin Negative (NEG) Urine Urobilinogen Dipstick 0.2 mg/dL (0.2 mg/dL) Urine Leukocyte Esterase Negative (NEG) Urine RBC 3-5 /HPF (0-2) Urine WBC Occ /HPF (0-4) Urine Squamous Epithelial Cells Few /LPF Urine Bacteria 0 /HPF (0-FEW) Urine Mucus Mod /LPF White Blood Count 6.2 x10^3/uL (4.0-11.0) Red Blood Count 4.69 x10^6/uL (3.50-5.40) Hemoglobin 12.7 g/dL (12.0-15.5) Hematocrit 37.6 % (36.0-47.0) Mean Corpuscular Volume 80 fL (79-100) Mean Corpuscular Hemoglobin 27 pg (25-35) Mean Corpuscular Hemoglobin Concent 34 g/dL (31-37) Red Cell Distribution Width 17.2 % (11.5-14.5) Platelet Count 274 x10^3/uL (140-400) Neutrophils (%) (Auto) 78 % (31-73) Lymphocytes (%) (Auto) 17 % (24-48) Monocytes (%) (Auto) 4 % (0-9) Eosinophils (%) (Auto) 0 % (0-3) Basophils (%) (Auto) 1 % (0-3) Neutrophils # (Auto) 4.8 x10^3uL (1.8-7.7) Lymphocytes # (Auto) 1.0 x10^3/uL (1.0-4.8) Monocytes # (Auto) 0.3 x10^3/uL (0.0-1.1) Eosinophils # (Auto) 0.0 x10^3/uL (0.0-0.7) Basophils # (Auto) 0.1 x10^3/uL (0.0-0.2) Prothrombin Time 12.6 SEC (11.7-14.0) Prothromb Time International Ratio 1.0 (0.8-1.1) Activated Partial Thromboplast Time 32 SEC (24-38) Sodium Level 140 mmol/L (136-145) Potassium Level 4.6 mmol/L (3.5-5.1) Chloride Level 103 mmol/L (98-107) Carbon Dioxide Level 32 mmol/L (21-32) Anion Gap 5 (6-14) Blood Urea Nitrogen 27 mg/dL (7-20) Creatinine 1.1 mg/dL (0.6-1.0) Estimated GFR (Cockcroft-Gault) 58.7 BUN/Creatinine Ratio 25 (6-20) Glucose Level 165 mg/dL (70-99) Lactic Acid Level 1.4 mmol/L (0.4-2.0) Calcium Level 9.5 mg/dL (8.5-10.1) Total Bilirubin 0.3 mg/dL (0.2-1.0) Aspartate Amino Transf (AST/SGOT) 23 U/L (15-37) Alanine Aminotransferase (ALT/SGPT) 26 U/L (14-59) Alkaline Phosphatase 123 U/L (46-116) Ammonia < 10 mcmol/L (11-34) Troponin I Quantitative < 0.017 ng/mL (0.000-0.055) Total Protein 7.9 g/dL (6.4-8.2) Albumin 3.4 g/dL (3.4-5.0) Albumin/Globulin Ratio 0.8 (1.0-1.7) Thyroid Stimulating Hormone (TSH) 0.775 uIU/mL (0.358-3.74) Salicylates Level < 2.8 mg/dL (2.8-20.0) Salicylate Last Dose Date Unk Salicylate Last Dose Time Unk Acetaminophen Level 5.8 mcg/ml (10-30) Acetaminophen Last Dose Date Unk Acetaminophen Last Dose Time Unk Glucose (Fingerstick) 188 mg/dL (70-99) Images Images CT head: No midline shift. Ventricles and sulci are prominent. Basilar cistern patent. No gross hemorrhage or intracranial mass. No displaced skull fracture. Regions of low attenuation of the white matter. IMPRESSION: No acute intracranial hemorrhage. Regions of low attenuation of the white matter. Nonspecific but frequently secondary to chronic small vessel ischemic disease. Subcutaneous induration left frontal region, could be a small scalp contusion. Carotid Doppler studies: negative Assessment/Plan Assessment/Plan Impression: Multifactorial gait disorder, long-standing use of wheelchair Diabetic neuropathy Possible stroke symptoms, rather nonspecific, may be more metabolic Recommendations: Await MRI Further recommendations depending on the results Rehabilitation modalities Return to longterm after studies complete Thank you for letting me help of the patient's care. CAMERON OLIVEIRA MD October 23, 2016 11:46
[2016-10-23] MEDS ORDERED: PIPERACILLIN/TAZOBACTAM 3.375 GM in IV NORMAL SALINE 50ML 50 ML IV SCH (12:00)
--- NOTE | 2016-10-23 13:12 | CONS ---
DATE OF CONSULTATION: 10/23/2016 ATTENDING PHYSICIAN: Dr. Sands. REASON FOR CONSULTATION: Abnormal chest x-ray. HISTORY OF PRESENT ILLNESS: The patient is a 76-year-old female who has no history of tobacco use. She has been referred from [facility] as she had multiple complaints about the services over there. I have been asked to see her for further evaluation of an abnormal chest x-ray. I have reviewed the patient's chest x-ray. She has some gaseous distention in the left lower lobe and some elevated diaphragm resulting in atelectasis. Clinically, she has no symptoms suggesting pneumonia. She has no cough, no fever, no chills, no chest pains, and no shortness of breath. She says she wants to go to the kitchen, have her own breakfast, rather than being fed in the room and assist where her main complaint is. PAST MEDICAL HISTORY: Significant for history of CHF, history of hypertension, history of low back pain, and diabetes. FAMILY HISTORY: Diabetes. PAST SURGICAL HISTORY: No recent surgeries. ALLERGIES: None. MEDICATIONS: All reviewed as listed in the MRAD including all the broad-spectrum antibiotics. REVIEW OF SYSTEMS: As discussed in history of present illness, otherwise noncontributory. SOCIAL HISTORY: Nonsmoker. PHYSICAL EXAMINATION: VITAL SIGNS: Stable, afebrile, pulse ox on room air. NECK: Supple. LUNGS: Diminished breath sounds. CARDIOVASCULAR: Regular rate and rhythm. ABDOMEN: Soft, nontender. EXTREMITIES: With trace pitting edema bilaterally. LABORATORY DATA: Reviewed. White cell count 6.2, hemoglobin 12.7, platelets are 274. BUN and creatinine is 27 and 1.1. IMPRESSION: 1. Abnormal chest x-ray with atelectasis involving the left lower lobe resulting from increased gaseous distention in the left lower lobe resulting in elevation of the left hemidiaphragm. Clinically, I do not think that she has pneumonia. 2. No significant history of tobacco use. RECOMMENDATIONS: 1. From a pulmonary standpoint, all broad-spectrum antibiotics can be discontinued. 2. Incentive spirometry. 3. Discussed with Dr. Sands and she could be transferred back to the skilled care facility. 4. I will see her only on a p.r.n. basis. REBECCA U. DE LA O, MD DR: DEBI/kalpana JOB#: [id number] / [id number] ANTHONY
--- NOTE | 2016-10-23 14:32 | CARD ---
APPROVED REPORT EXAM: Two-dimensional and M-mode echocardiogram with Doppler and color Doppler. Other Information Quality : GoodHR: 92bpm Rhythm : NSR INDICATION CVA/TIA TIA 2D DIMENSIONS RVDd2.2 (2.9-3.5cm)Left Atrium(2D)3.5 (1.6-4.0cm) IVSd1.1 (0.7-1.1cm)Aortic Root(2D)2.3 (2.0-3.7cm) LVDd4.3 (3.9-5.9cm)LVOT Diameter2.1 (1.8-2.4cm) PWd1.1 (0.7-1.1cm)LVDs2.7 (2.5-4.0cm) FS (%) 36.0 %SV54.4 ml LVEF(%)66.0 (>50%) Aortic Valve AoV Peak Eliot.216.4cm/sAoV VTI44.1cm AO Peak GR.18.7mmHgLVOT Peak Eliot.108.7cm/s AO Mean GR.11mmHgAVA (VMAX)1.79cm2 Mitral Valve MV E Ptsyqpix84.2cm/sMV E Peak Gr.6mmHg MV DECEL [id number] A Jlooeysb864.1cm/s MV E Mean Gr.3mmHgE/A Ratio0.7 MV A [id number] Pulmonary Valve PV Peak Khglttjy34.1cm/s Tricuspid Valve TR P. Bdgirthp107mi/sTR Peak Gr.14mmHg Pulmonary Vein S1 Omqljufd95.1cm/sD2 Izrqxide85.4cm/s PVa [id number] LEFT VENTRICLE The left ventricle is normal size. There is mild concentric left ventricular hypertrophy. The left ve ntricular systolic function is normal and the ejection fraction is within normal range. The Ejection Fraction is 60-65%. There is normal LV segmental wall motion. The left ventricular diastolic function and filling is normal for age. Transmitral Doppler flow pattern is Grade I-abnormal relaxation patte rn. RIGHT VENTRICLE The right ventricle is normal size. There is normal right ventricular wall thickness. The right ventr icular systolic function is normal. ATRIA The left atrium size is normal. The right atrium size is normal. The interatrial septum is intact wit h no evidence for an atrial septal defect or patent foramen ovale as noted on 2-D or Doppler imaging. AORTIC VALVE The aortic valve is not well visualized. The aortic valve is calcified but opens well. Doppler and Co natalya Flow revealed no significant aortic regurgitation. There is no significant aortic valvular stenos is. MITRAL VALVE The mitral valve leaflets are mildly thickened. There is no evidence of mitral valve prolapse. There is no mitral valve stenosis. Doppler and Color Flow revealed trace mitral regurgitation. TRICUSPID VALVE Doppler and Color Flow revealed trace tricuspid regurgitation. The pulmonary artery systolic pressure is estimated at 17 mmHg. PULMONIC VALVE The pulmonic valve is not well visualized. Doppler and Color Flow revealed no pulmonic valvular regur gitation. There is no pulmonic valvular stenosis. GREAT VESSELS The aortic root is normal in size. The ascending aorta is normal in size. The pulmonary artery is nor mal. The IVC is normal in size and collapses >50% with inspiration. PERICARDIAL EFFUSION There is no evidence of significant pericardial effusion. Critical Notification Critical Value: No <Conclusion> The left ventricle is normal size. The left ventricular systolic function is normal and the ejection fraction is within normal range. The Ejection Fraction is 60-65%. There is mild concentric left ventricular hypertrophy. The interatrial septum is intact with no evidence for an atrial septal defect or patent foramen ovale as noted on 2-D or Doppler imaging. There is no significant aortic valvular stenosis. Doppler and Color Flow revealed trace mitral regurgitation. Doppler and Color Flow revealed trace tricuspid regurgitation. The pulmonary artery systolic pressure is estimated at 17 mmHg.
[2016-10-23 15:00] VITALS: BP 120/48
[2016-10-23] MEDS ORDERED: HALOPERIDOL LACTATE 5 MG/ML VIAL. IVP PRN (15:45)
[2016-10-23 19:20] VITALS: BP 134/56
[2016-10-23] MEDS: HYDROcodone/APAP 5/325MG 1 TAB TABLET PO PRN (19:34)
[2016-10-23] MEDS ORDERED: INSULIN DETEMIR 300 UNITS/3 ML INSULN.PEN. SQ SCH (21:00)
[2016-10-23] MEDS ORDERED: ATORVASTATIN CALCIUM 40 MG TABLET. PO SCH (21:00)
[2016-10-24 03:04] VITALS: BP 150/59
[2016-10-24 03:14] LABS: BASO # 0.1 x10^3/uL (0.0-0.2); BASO % 1 % (0-3); EOS % 2 % (0-3); HEMATOCRIT 36.1 % (36.0-47.0); HEMOGLOBIN 12.2 g/dL (12.0-15.5); LYMPH # 2.2 x10^3/uL (1.0-4.8); LYMPH % 29 % (24-48); MEAN CORPUSCULAR HEMOGLOBIN 27 pg (25-35); MEAN CORPUSCULAR HGB CONC 34 g/dL (31-37); MEAN CORPUSCULAR VOLUME 79 fL (79-100); MONO % 12 % (0-9); NEUT % 56 % (31-73); PLATELET COUNT 278 x10^3/uL (140-400); RED BLOOD COUNT 4.55 x10^6/uL (3.50-5.40); RED CELL DISTRIBUTION WIDTH 17.3 % (11.5-14.5); WHITE BLOOD COUNT 7.6 x10^3/uL (4.0-11.0)
[2016-10-24 03:26] LABS: CALCIUM 9.5 mg/dL (8.5-10.1); CREATININE 1.4 mg/dL (0.6-1.0); GFR 44.5; POTASSIUM 4.3 mmol/L (3.5-5.1)
[2016-10-24 03:40] LABS: CHOLESTEROL/HDL RATIO 2.3
[2016-10-24] MEDS: HYDROcodone/APAP 5/325MG 1 TAB TABLET PO PRN (05:27)
[2016-10-24] MEDS ORDERED: VANCOMYCIN 1.5 GM in IV NORMAL SALINE 500ML BAG 500 ML IV SCH (06:00)
[2016-10-24 07:00] VITALS: BP 164/58
[2016-10-24] MEDS: DULoxetine HCL 30 MG CAPSULE.DR PO SCH (09:01)
[2016-10-24] MEDS: FUROSEMIDE 40 MG TABLET. PO SCH (09:01)
[2016-10-24] MEDS: POLYETHYLENE GLYCOL 3350 17 GM PACKET. PO SCH (09:01)
[2016-10-24] MEDS: CELECOXIB 200 MG CAPSULE. PO SCH (09:01)
[2016-10-24] MEDS: CARVEDILOL 6.25 MG TABLET. PO SCH (09:02)
[2016-10-24] MEDS: amLODIPine BESYLATE 10 MG TABLET PO SCH (09:02)
[2016-10-24] MEDS: DOCUSATE SODIUM 100 MG CAPSULE. PO SCH (09:03)
[2016-10-24] MEDS: LINAGLIPTIN 5 MG TABLET PO SCH (09:03)
[2016-10-24] MEDS: LOSARTAN POTASSIUM 50 MG TABLET. PO SCH (09:03)
[2016-10-24] MEDS: ASPIRIN 325 MG TABLET PO SCH (09:03)
[2016-10-24] MEDS: LIDOCAINE (700MG/PATCH) PATCH. TD SCH (09:10)
[2016-10-24] MEDS: MINERAL OIL/PETROLATUM TOPICAL CREAM 113GM JAR. TP SCH (09:10)
[2016-10-24] MEDS: DICLOFENAC SODIUM 1% TOPICAL GEL 100GM TUBE. TP SCH ×2 (09:11→13:35)
[2016-10-24] MEDS: POLYVINYL ALCOHOL 1.4% OPHTH SOLUTION 15ML BOTTLE. OU SCH ×2 (09:11→13:35)
[2016-10-24] MEDS: INSULIN ASPART 300 UNITS/3 ML INSULN.PEN SQ SCH ×2 (09:22→12:54)
--- NOTE | 2016-10-24 09:37 | PDOC ---
PROGRESS NOTES Assessment Problems Medical Problems: (1) Altered mental status Status: Acute (2) Essential hypertension Status: Acute (3) Healthcare-associated pneumonia Status: Acute (4) Hypothermia Status: Acute (5) Slurred speech Status: Acute Multifactorial gait disorder, long-standing use of wheelchair Diabetic neuropathy Possible stroke symptoms, rather nonspecific, may be more metabolic Plan Patient refuses MRI, she is mentally capable to make this decision Okay to return to [facility] Subjective No complaints Objective Vital Signs Date Time Temp Pulse Resp B/P (MAP) Pulse Ox O2 Delivery O2 Flow Rate FiO2 10/24/16 09:03 94 164/58 10/24/16 08:00 Room Air 10/24/16 07:00 98.5 18 90 98.5 Intake and Output 10/24/16 07:00 Intake Total 1300 ml Balance 1300 ml Intake Oral 1300 ml # Voids 4 PHYSICAL EXAM Alert. Oriented to time, place and person. PERRL. EOMI. CN: no focal findings. Muscle tone: normal. Muscle strength: 5/5 DTR: 1+ Plantar reflex: flexor Gait: not examined in bed. Sensory exam: stocking loss. No cerebellar signs elicited. Review of Relevant I have reviewed the following items halle (where applicable) has been applied. Labs Laboratory Tests Test 10/23/16 02:22 10/23/16 02:39 10/23/16 05:30 10/23/16 07:59 Urine Collection Type U cath Urine Color Yellow Urine Clarity Clear Urine pH 5.5 Urine Specific [place] 1.015 Urine Protein Negative mg/dL (NEG-TRACE) Urine Glucose (UA) Negative mg/dL (NEG) Urine Ketones (Stick) Negative mg/dL (NEG) Urine Blood Small (NEG) Urine Nitrite Negative (NEG) Urine Bilirubin Negative (NEG) Urine Urobilinogen Dipstick 0.2 mg/dL (0.2 mg/dL) Urine Leukocyte Esterase Negative (NEG) Urine RBC 3-5 /HPF (0-2) Urine WBC Occ /HPF (0-4) Urine Squamous Epithelial Cells Few /LPF Urine Bacteria 0 /HPF (0-FEW) Urine Mucus Mod /LPF White Blood Count 6.2 x10^3/uL (4.0-11.0) Red Blood Count 4.69 x10^6/uL (3.50-5.40) Hemoglobin 12.7 g/dL (12.0-15.5) Hematocrit 37.6 % (36.0-47.0) Mean Corpuscular Volume 80 fL (79-100) Mean Corpuscular Hemoglobin 27 pg (25-35) Mean Corpuscular Hemoglobin Concent 34 g/dL (31-37) Red Cell Distribution Width 17.2 % (11.5-14.5) Platelet Count 274 x10^3/uL (140-400) Neutrophils (%) (Auto) 78 % (31-73) Lymphocytes (%) (Auto) 17 % (24-48) Monocytes (%) (Auto) 4 % (0-9) Eosinophils (%) (Auto) 0 % (0-3) Basophils (%) (Auto) 1 % (0-3) Neutrophils # (Auto) 4.8 x10^3uL (1.8-7.7) Lymphocytes # (Auto) 1.0 x10^3/uL (1.0-4.8) Monocytes # (Auto) 0.3 x10^3/uL (0.0-1.1) Eosinophils # (Auto) 0.0 x10^3/uL (0.0-0.7) Basophils # (Auto) 0.1 x10^3/uL (0.0-0.2) Prothrombin Time 12.6 SEC (11.7-14.0) Prothromb Time International Ratio 1.0 (0.8-1.1) Activated Partial Thromboplast Time 32 SEC (24-38) Sodium Level 140 mmol/L (136-145) Potassium Level 4.6 mmol/L (3.5-5.1) Chloride Level 103 mmol/L (98-107) Carbon Dioxide Level 32 mmol/L (21-32) Anion Gap 5 (6-14) Blood Urea Nitrogen 27 mg/dL (7-20) Creatinine 1.1 mg/dL (0.6-1.0) Estimated GFR (Cockcroft-Gault) 58.7 BUN/Creatinine Ratio 25 (6-20) Glucose Level 165 mg/dL (70-99) Hemoglobin A1c 8.7 % (4.8-5.6) Lactic Acid Level 1.4 mmol/L (0.4-2.0) Calcium Level 9.5 mg/dL (8.5-10.1) Total Bilirubin 0.3 mg/dL (0.2-1.0) Aspartate Amino Transf (AST/SGOT) 23 U/L (15-37) Alanine Aminotransferase (ALT/SGPT) 26 U/L (14-59) Alkaline Phosphatase 123 U/L (46-116) Ammonia < 10 mcmol/L (11-34) Troponin I Quantitative < 0.017 ng/mL (0.000-0.055) Total Protein 7.9 g/dL (6.4-8.2) Albumin 3.4 g/dL (3.4-5.0) Albumin/Globulin Ratio 0.8 (1.0-1.7) Thyroid Stimulating Hormone (TSH) 0.775 uIU/mL (0.358-3.74) Salicylates Level < 2.8 mg/dL (2.8-20.0) Salicylate Last Dose Date Unk Salicylate Last Dose Time Unk Acetaminophen Level 5.8 mcg/ml (10-30) Acetaminophen Last Dose Date Unk Acetaminophen Last Dose Time Unk Nasal Screen MRSA (PCR) Positive (Negative) Glucose (Fingerstick) 188 mg/dL (70-99) Test 10/23/16 11:24 10/23/16 15:42 10/23/16 20:58 10/24/16 02:45 Glucose (Fingerstick) 141 mg/dL (70-99) 188 mg/dL (70-99) 276 mg/dL (70-99) White Blood Count 7.6 x10^3/uL (4.0-11.0) Red Blood Count 4.55 x10^6/uL (3.50-5.40) Hemoglobin 12.2 g/dL (12.0-15.5) Hematocrit 36.1 % (36.0-47.0) Mean Corpuscular Volume 79 fL (79-100) Mean Corpuscular Hemoglobin 27 pg (25-35) Mean Corpuscular Hemoglobin Concent 34 g/dL (31-37) Red Cell Distribution Width 17.3 % (11.5-14.5) Platelet Count 278 x10^3/uL (140-400) Neutrophils (%) (Auto) 56 % (31-73) Lymphocytes (%) (Auto) 29 % (24-48) Monocytes (%) (Auto) 12 % (0-9) Eosinophils (%) (Auto) 2 % (0-3) Basophils (%) (Auto) 1 % (0-3) Neutrophils # (Auto) 4.3 x10^3uL (1.8-7.7) Lymphocytes # (Auto) 2.2 x10^3/uL (1.0-4.8) Monocytes # (Auto) 0.9 x10^3/uL (0.0-1.1) Eosinophils # (Auto) 0.2 x10^3/uL (0.0-0.7) Basophils # (Auto) 0.1 x10^3/uL (0.0-0.2) Sodium Level 139 mmol/L (136-145) Potassium Level 4.3 mmol/L (3.5-5.1) Chloride Level 103 mmol/L (98-107) Carbon Dioxide Level 29 mmol/L (21-32) Anion Gap 7 (6-14) Blood Urea Nitrogen 29 mg/dL (7-20) Creatinine 1.4 mg/dL (0.6-1.0) Estimated GFR (Cockcroft-Gault) 44.5 Glucose Level 175 mg/dL (70-99) Calcium Level 9.5 mg/dL (8.5-10.1) Triglycerides Level 54 mg/dL (0-150) Cholesterol Level 171 mg/dL (0-200) LDL Cholesterol, Calculated 85 mg/dL (0-100) VLDL Cholesterol, Calculated 11 mg/dL (0-40) Non-HDL Cholesterol Calculated 96 mg/dL (0-129) HDL Cholesterol 75 mg/dL (40-60) Cholesterol/HDL Ratio 2.3 Test 10/24/16 09:17 Glucose (Fingerstick) 301 mg/dL (70-99) Laboratory Tests Test 10/23/16 11:24 10/23/16 15:42 10/23/16 20:58 10/24/16 02:45 Glucose (Fingerstick) 141 mg/dL (70-99) 188 mg/dL (70-99) 276 mg/dL (70-99) White Blood Count 7.6 x10^3/uL (4.0-11.0) Red Blood Count 4.55 x10^6/uL (3.50-5.40) Hemoglobin 12.2 g/dL (12.0-15.5) Hematocrit 36.1 % (36.0-47.0) Mean Corpuscular Volume 79 fL (79-100) Mean Corpuscular Hemoglobin 27 pg (25-35) Mean Corpuscular Hemoglobin Concent 34 g/dL (31-37) Red Cell Distribution Width 17.3 % (11.5-14.5) Platelet Count 278 x10^3/uL (140-400) Neutrophils (%) (Auto) 56 % (31-73) Lymphocytes (%) (Auto) 29 % (24-48) Monocytes (%) (Auto) 12 % (0-9) Eosinophils (%) (Auto) 2 % (0-3) Basophils (%) (Auto) 1 % (0-3) Neutrophils # (Auto) 4.3 x10^3uL (1.8-7.7) Lymphocytes # (Auto) 2.2 x10^3/uL (1.0-4.8) Monocytes # (Auto) 0.9 x10^3/uL (0.0-1.1) Eosinophils # (Auto) 0.2 x10^3/uL (0.0-0.7) Basophils # (Auto) 0.1 x10^3/uL (0.0-0.2) Sodium Level 139 mmol/L (136-145) Potassium Level 4.3 mmol/L (3.5-5.1) Chloride Level 103 mmol/L (98-107) Carbon Dioxide Level 29 mmol/L (21-32) Anion Gap 7 (6-14) Blood Urea Nitrogen 29 mg/dL (7-20) Creatinine 1.4 mg/dL (0.6-1.0) Estimated GFR (Cockcroft-Gault) 44.5 Glucose Level 175 mg/dL (70-99) Calcium Level 9.5 mg/dL (8.5-10.1) Triglycerides Level 54 mg/dL (0-150) Cholesterol Level 171 mg/dL (0-200) LDL Cholesterol, Calculated 85 mg/dL (0-100) VLDL Cholesterol, Calculated 11 mg/dL (0-40) Non-HDL Cholesterol Calculated 96 mg/dL (0-129) HDL Cholesterol 75 mg/dL (40-60) Cholesterol/HDL Ratio 2.3 Test 10/24/16 09:17 Glucose (Fingerstick) 301 mg/dL (70-99) Microbiology 10/23/16 Blood Culture - Preliminary, Resulted NO GROWTH AFTER 1 DAY Medications Current Medications Sodium Chloride 500 ml @ 500 mls/hr 1X ONCE IV Last administered on 02:40; Start 10/23/16 at 02:30; Stop 10/23/16 at 03:29; Status DC Aspirin (Afshin Aspirin) 325 mg 1X ONCE PO Last administered on 10/23/16 04:00 ; Start 10/23/16 at 04:00; Stop 10/23/16 at 04:01; Status DC Vancomycin HCl (Vanco Per Pharmacy) 1 each PRN DAILY PRN MC SEE COMMENTS Last administered on 10/23/16 06:01; Start 10/23/16 at 03:45; Stop 10/23/16 at 10:07 ; Status DC Piperacillin Sod/ Tazobactam Sod (Zosyn Per Pharmacy) 1 each PRN DAILY PRN MC SEE COMMENTS; Start 10/23/16 at 03:45; Stop 10/23/16 at 10:56; Status DC Levofloxacin/ Dextrose (Levaquin Per Pharmacy) 1 each PRN DAILY PRN MC SEE COMMENTS; Start 10/23/16 at 03:45; Stop 10/23/16 at 10:56; Status DC Vancomycin HCl 2 gm/Sodium Chloride 500 ml @ 250 mls/hr 1X ONCE IV Last administered on 10/23/16 05:34; Start 10/23/16 at 04:30; Stop 10/23/16 at 06:29 ; Status DC Piperacillin Sod/ Tazobactam Sod 3.375 gm/Sodium Chloride 50 ml @ 100 mls/hr 1X ONCE IV Last administered on 10/23/16 04:00; Start 10/23/16 at 04:00; Stop 10/23/16 at 04:29; Status DC Levofloxacin/ Dextrose 150 ml @ 100 mls/hr 1X ONCE IV Last administered on 05:33; Start 10/23/16 at 05:00; Stop 10/23/16 at 06:29; Status DC Ondansetron HCl (Zofran) 4 mg PRN Q8HRS PRN IV NAUSEA/VOMITING; Start 10/23/16 at 04:00; Stop 10/24/16 at 03:59; Status DC Fentanyl Citrate (Fentanyl 2ml Vial) 50 mcg PRN Q2HR PRN IV SEVERE PAIN Last administered on 10/23/16 12:43; Start 10/23/16 at 04:00; Stop 10/24/16 at 03:59 ; Status DC Acetaminophen (Tylenol) 650 mg PRN Q4HRS PRN PO FEVER; Start 10/23/16 at 04:00 ; Stop 10/23/16 at 10:36; Status DC Levofloxacin/ Dextrose 150 ml @ 100 mls/hr Q24H IV ; Start 10/24/16 at 05:00; Stop 10/24/16 at 05:00; Status DC Piperacillin Sod/ Tazobactam Sod 3.375 gm/Sodium Chloride 50 ml @ 100 mls/hr Q6HRS IV ; Start 10/23/16 at 12:00; Stop 10/23/16 at 12:00; Status DC Vancomycin HCl 1.5 gm/Sodium Chloride 500 ml @ 250 mls/hr Q24H IV ; Start 10/24 at 06:00; Stop 10/24/16 at 06:00; Status DC Vancomycin HCl 1 each 1X ONCE MC ; Start 10/25/16 at 05:30; Stop 10/25/16 at 05 :30; Status DC Baclofen (Lioresal) 5 mg TID PO Last administered on 10/23/16 20:43; Start at 09:00; Stop 10/23/16 at 20:49; Status DC Celecoxib (CeleBREX) 200 mg DAILY PO Last administered on 10/24/16 09:01; Start 10/23/16 at 09:00 Carvedilol (Coreg) 6.25 mg BIDWMEALS PO Last administered on 10/24/16 09:02; Start 10/23/16 at 08:00 Acetaminophen (Tylenol) 650 mg PRN Q6HRS PRN PO MILD PAIN / TEMP; Start at 06:00 Amlodipine Besylate (Norvasc) 10 mg DAILY PO Last administered on 10/24/16 09: 02; Start 10/23/16 at 09:00 Losartan Potassium (Cozaar) 100 mg DAILY PO Last administered on 10/24/16 09: 03; Start 10/23/16 at 09:00 Ergocalciferol (Vitamin D2) 50,000 unit WEEKLY PO ; Start 10/23/16 at 09:00 Multi-Ingred Cream/Lotion/Oil/ Oint (Hydrocerin) 1 fabian DAILY08 TP Last administered on 10/24/16 09:10; Start 10/23/16 at 08:00 Diclofenac Sodium (Voltaren) 1 fabian TID TP Last administered on 10/24/16 09:11 ; Start 10/23/16 at 09:00 Polyethylene Glycol (miraLAX PACKET) 17 gm DAILY PO Last administered on 09:01; Start 10/23/16 at 09:00 Docusate Sodium (Colace) 100 mg DAILY PO Last administered on 10/24/16 09:03; Start 10/23/16 at 09:00 Artificial Tears (Artificial Tears) 1 drop PRN Q24HRS PRN OU DRY EYE; Start at 06:00 Artificial Tears (Artificial Tears) 1 drop TID OU Last administered on 09:11; Start 10/23/16 at 09:00 Lidocaine (Lidoderm) 1 patch DAILY TD Last administered on 10/24/16 09:10; Start 10/23/16 at 09:00 Furosemide (Lasix) 60 mg DAILY PO Last administered on 10/24/16 09:01; Start 10/23/16 at 09:00 Linagliptin (Tradjenta) 5 mg DAILY PO Last administered on 10/24/16 09:03; Start 10/23/16 at 09:00 Duloxetine HCl (Cymbalta) 60 mg DAILY PO Last administered on 10/24/16 09:01; Start 10/23/16 at 09:00 Aspirin (Afshin Aspirin) 81 mg DAILYWBKFT PO Last administered on 10/24/16 09: 03; Start 10/23/16 at 08:00 Atorvastatin Calcium (Lipitor) 40 mg QHS PO Last administered on 10/23/16 20: 43; Start 10/23/16 at 21:00 Magnesium Hydroxide (Milk Of Magnesia) 2,400 mg PRN DAILY PRN PO CONSTIPATION; Start 10/23/16 at 06:00 Bisacodyl (Dulcolax Supp) 10 mg PRN DAILY PRN IN CONSTIPATION; Start 10/23/16 at 06:00 Sodium Monofluorophosphate (Fleet Adult) 133 ml PRN DAILY PRN IN CONSTIPATION; Start 10/23/16 at 06:00 Al Hydroxide/Mg Hydroxide (Mylanta Plus Xs) 30 ml PRN Q4HRS PRN PO HEARTBURN / GAS; Start 10/23/16 at 06:00 Bisacodyl (Dulcolax Supp) 10 mg 1X ONCE IN ; Start 10/23/16 at 07:00; Stop at 07:01; Status DC Sodium Monofluorophosphate (Fleet Adult) 133 ml 1X ONCE IN ; Start 10/23/16 at 07:00; Stop 10/23/16 at 07:01; Status DC Acetaminophen/ Codeine Phosphate (Tylenol #3) 1 tab 1X ONCE PO Last administered on 10/23/16 09:19; Start 10/23/16 at 07:00; Stop 10/23/16 at 07:01 ; Status DC Acetaminophen/ Hydrocodone Bitart (Lortab 5/325) 1 tab PRN Q8HRS PRN PO SEVERE PAIN Last administered on 10/24/16 05:27; Start 10/23/16 at 06:00 Meclizine HCl (Antivert) 25 mg PRN Q8HRS PRN PO DIZZINESS; Start 10/23/16 at 06 :00 Insulin Detemir (Levemir) 30 units QHS SQ Last administered on 10/23/16 21:01 ; Start 10/23/16 at 21:00 Insulin Aspart (NovoLOG) 15 units TIDAC SQ Last administered on 10/24/16 09:22 ; Start 10/23/16 at 07:30 Haloperidol Lactate (Haldol) 5 mg PRN Q6HRS PRN IVP AGITATION; Start 10/23/16 at 15:45 Vitals/I & O Vital Sign - Last 24 Hours 10/23/16 10/23/16 10/23/16 10/23/16 11:00 12:43 13:16 15:00 Temp 99.0 97.4 99.0 97.4 Pulse 85 96 Resp 20 20 B/P (MAP) 118/42 (67) 120/48 (72) Pulse Ox 93 96 O2 Delivery Room Air Room Air Nasal Cannula Room Air 10/23/16 10/23/16 10/24/16 10/24/16 18:25 19:20 03:04 07:00 Temp 100.8 98.8 98.5 100.8 98.8 98.5 Pulse 96 97 91 94 Resp 20 20 18 B/P (MAP) 120/48 134/56 (82) 150/59 (89) 164/58 (93) Pulse Ox 98 95 90 O2 Delivery Room Air Room Air Room Air 10/24/16 10/24/16 10/24/16 10/24/16 08:00 09:02 09:02 09:03 Pulse 94 94 94 B/P (MAP) 164/58 164/58 164/58 O2 Delivery Room Air Intake and Output 10/23/16 10/23/16 10/24/16 15:00 23:00 07:00 Intake Total 500 ml 800 ml Balance 500 ml 800 ml CAMERON OLIVEIRA MD October 24, 2016 09:37
--- NOTE | 2016-10-24 09:59 | PDOC3 ---
Discharge Summary Visit Information Date of Admission: October 23, 2016 Date of Discharge: October 24, 2016 Admitting Diagnosis: confusion, slurred speech Final Diagnosis Multifactorial gait disorder, long-standing use of wheelchair Diabetic neuropathy Possible stroke symptoms, TIA, but rather nonspecific, metabolic encephalopathy DM2, mod control htn CKD 2-3 eProblems Medical Problems: (1) Altered mental status Status: Acute (2) Essential hypertension Status: Acute (3) Healthcare-associated pneumonia Status: Acute (4) Hypothermia Status: Acute (5) Slurred speech Status: Acute Brief Hospital Course Allergies Allergies Coded Allergies Type Severity Reaction Last Updated Verified I S O L A T I O N *CONTACT* Allergy Unknown 10/24/16 Yes No Known Medication Allergies Allergy Unknown 10/24/16 Yes Vital Signs Vital Signs Date Time Temp Pulse Resp B/P (MAP) Pulse Ox O2 Delivery O2 Flow Rate FiO2 10/24/16 09:03 94 164/58 10/24/16 08:00 Room Air 10/24/16 07:00 98.5 18 90 98.5 Lab Results Laboratory Tests Test 10/23/16 02:22 10/23/16 02:39 10/23/16 05:30 10/23/16 07:59 Urine Collection Type U cath Urine Color Yellow Urine Clarity Clear Urine pH 5.5 Urine Specific [place] 1.015 Urine Protein Negative mg/dL (NEG-TRACE) Urine Glucose (UA) Negative mg/dL (NEG) Urine Ketones (Stick) Negative mg/dL (NEG) Urine Blood Small (NEG) Urine Nitrite Negative (NEG) Urine Bilirubin Negative (NEG) Urine Urobilinogen Dipstick 0.2 mg/dL (0.2 mg/dL) Urine Leukocyte Esterase Negative (NEG) Urine RBC 3-5 /HPF (0-2) Urine WBC Occ /HPF (0-4) Urine Squamous Epithelial Cells Few /LPF Urine Bacteria 0 /HPF (0-FEW) Urine Mucus Mod /LPF White Blood Count 6.2 x10^3/uL (4.0-11.0) Red Blood Count 4.69 x10^6/uL (3.50-5.40) Hemoglobin 12.7 g/dL (12.0-15.5) Hematocrit 37.6 % (36.0-47.0) Mean Corpuscular Volume 80 fL (79-100) Mean Corpuscular Hemoglobin 27 pg (25-35) Mean Corpuscular Hemoglobin Concent 34 g/dL (31-37) Red Cell Distribution Width 17.2 % (11.5-14.5) Platelet Count 274 x10^3/uL (140-400) Neutrophils (%) (Auto) 78 % (31-73) Lymphocytes (%) (Auto) 17 % (24-48) Monocytes (%) (Auto) 4 % (0-9) Eosinophils (%) (Auto) 0 % (0-3) Basophils (%) (Auto) 1 % (0-3) Neutrophils # (Auto) 4.8 x10^3uL (1.8-7.7) Lymphocytes # (Auto) 1.0 x10^3/uL (1.0-4.8) Monocytes # (Auto) 0.3 x10^3/uL (0.0-1.1) Eosinophils # (Auto) 0.0 x10^3/uL (0.0-0.7) Basophils # (Auto) 0.1 x10^3/uL (0.0-0.2) Prothrombin Time 12.6 SEC (11.7-14.0) Prothromb Time International Ratio 1.0 (0.8-1.1) Activated Partial Thromboplast Time 32 SEC (24-38) Sodium Level 140 mmol/L (136-145) Potassium Level 4.6 mmol/L (3.5-5.1) Chloride Level 103 mmol/L (98-107) Carbon Dioxide Level 32 mmol/L (21-32) Anion Gap 5 (6-14) Blood Urea Nitrogen 27 mg/dL (7-20) Creatinine 1.1 mg/dL (0.6-1.0) Estimated GFR (Cockcroft-Gault) 58.7 BUN/Creatinine Ratio 25 (6-20) Glucose Level 165 mg/dL (70-99) Hemoglobin A1c 8.7 % (4.8-5.6) Lactic Acid Level 1.4 mmol/L (0.4-2.0) Calcium Level 9.5 mg/dL (8.5-10.1) Total Bilirubin 0.3 mg/dL (0.2-1.0) Aspartate Amino Transf (AST/SGOT) 23 U/L (15-37) Alanine Aminotransferase (ALT/SGPT) 26 U/L (14-59) Alkaline Phosphatase 123 U/L (46-116) Ammonia < 10 mcmol/L (11-34) Troponin I Quantitative < 0.017 ng/mL (0.000-0.055) Total Protein 7.9 g/dL (6.4-8.2) Albumin 3.4 g/dL (3.4-5.0) Albumin/Globulin Ratio 0.8 (1.0-1.7) Thyroid Stimulating Hormone (TSH) 0.775 uIU/mL (0.358-3.74) Salicylates Level < 2.8 mg/dL (2.8-20.0) Salicylate Last Dose Date Unk Salicylate Last Dose Time Unk Acetaminophen Level 5.8 mcg/ml (10-30) Acetaminophen Last Dose Date Unk Acetaminophen Last Dose Time Unk Nasal Screen MRSA (PCR) Positive (Negative) Glucose (Fingerstick) 188 mg/dL (70-99) Test 10/23/16 11:24 10/23/16 15:42 10/23/16 20:58 10/24/16 02:45 Glucose (Fingerstick) 141 mg/dL (70-99) 188 mg/dL (70-99) 276 mg/dL (70-99) White Blood Count 7.6 x10^3/uL (4.0-11.0) Red Blood Count 4.55 x10^6/uL (3.50-5.40) Hemoglobin 12.2 g/dL (12.0-15.5) Hematocrit 36.1 % (36.0-47.0) Mean Corpuscular Volume 79 fL (79-100) Mean Corpuscular Hemoglobin 27 pg (25-35) Mean Corpuscular Hemoglobin Concent 34 g/dL (31-37) Red Cell Distribution Width 17.3 % (11.5-14.5) Platelet Count 278 x10^3/uL (140-400) Neutrophils (%) (Auto) 56 % (31-73) Lymphocytes (%) (Auto) 29 % (24-48) Monocytes (%) (Auto) 12 % (0-9) Eosinophils (%) (Auto) 2 % (0-3) Basophils (%) (Auto) 1 % (0-3) Neutrophils # (Auto) 4.3 x10^3uL (1.8-7.7) Lymphocytes # (Auto) 2.2 x10^3/uL (1.0-4.8) Monocytes # (Auto) 0.9 x10^3/uL (0.0-1.1) Eosinophils # (Auto) 0.2 x10^3/uL (0.0-0.7) Basophils # (Auto) 0.1 x10^3/uL (0.0-0.2) Sodium Level 139 mmol/L (136-145) Potassium Level 4.3 mmol/L (3.5-5.1) Chloride Level 103 mmol/L (98-107) Carbon Dioxide Level 29 mmol/L (21-32) Anion Gap 7 (6-14) Blood Urea Nitrogen 29 mg/dL (7-20) Creatinine 1.4 mg/dL (0.6-1.0) Estimated GFR (Cockcroft-Gault) 44.5 Glucose Level 175 mg/dL (70-99) Calcium Level 9.5 mg/dL (8.5-10.1) Triglycerides Level 54 mg/dL (0-150) Cholesterol Level 171 mg/dL (0-200) LDL Cholesterol, Calculated 85 mg/dL (0-100) VLDL Cholesterol, Calculated 11 mg/dL (0-40) Non-HDL Cholesterol Calculated 96 mg/dL (0-129) HDL Cholesterol 75 mg/dL (40-60) Cholesterol/HDL Ratio 2.3 Test 10/24/16 09:17 Glucose (Fingerstick) 301 mg/dL (70-99) Laboratory Tests Test 10/23/16 11:24 10/23/16 15:42 10/23/16 20:58 10/24/16 02:45 Glucose (Fingerstick) 141 mg/dL (70-99) 188 mg/dL (70-99) 276 mg/dL (70-99) White Blood Count 7.6 x10^3/uL (4.0-11.0) Red Blood Count 4.55 x10^6/uL (3.50-5.40) Hemoglobin 12.2 g/dL (12.0-15.5) Hematocrit 36.1 % (36.0-47.0) Mean Corpuscular Volume 79 fL (79-100) Mean Corpuscular Hemoglobin 27 pg (25-35) Mean Corpuscular Hemoglobin Concent 34 g/dL (31-37) Red Cell Distribution Width 17.3 % (11.5-14.5) Platelet Count 278 x10^3/uL (140-400) Neutrophils (%) (Auto) 56 % (31-73) Lymphocytes (%) (Auto) 29 % (24-48) Monocytes (%) (Auto) 12 % (0-9) Eosinophils (%) (Auto) 2 % (0-3) Basophils (%) (Auto) 1 % (0-3) Neutrophils # (Auto) 4.3 x10^3uL (1.8-7.7) Lymphocytes # (Auto) 2.2 x10^3/uL (1.0-4.8) Monocytes # (Auto) 0.9 x10^3/uL (0.0-1.1) Eosinophils # (Auto) 0.2 x10^3/uL (0.0-0.7) Basophils # (Auto) 0.1 x10^3/uL (0.0-0.2) Sodium Level 139 mmol/L (136-145) Potassium Level 4.3 mmol/L (3.5-5.1) Chloride Level 103 mmol/L (98-107) Carbon Dioxide Level 29 mmol/L (21-32) Anion Gap 7 (6-14) Blood Urea Nitrogen 29 mg/dL (7-20) Creatinine 1.4 mg/dL (0.6-1.0) Estimated GFR (Cockcroft-Gault) 44.5 Glucose Level 175 mg/dL (70-99) Calcium Level 9.5 mg/dL (8.5-10.1) Triglycerides Level 54 mg/dL (0-150) Cholesterol Level 171 mg/dL (0-200) LDL Cholesterol, Calculated 85 mg/dL (0-100) VLDL Cholesterol, Calculated 11 mg/dL (0-40) Non-HDL Cholesterol Calculated 96 mg/dL (0-129) HDL Cholesterol 75 mg/dL (40-60) Cholesterol/HDL Ratio 2.3 Test 10/24/16 09:17 Glucose (Fingerstick) 301 mg/dL (70-99) Brief Hospital Course Ms. Boggs is a 76 old pt [facility], slurred speech, droop to mouth , these sx resolved quickly Patient refuses MRI, she is mentally capable to make this decision possible low blood sugar, other possible metabolic causes, return to intermediate, cleared by Neuro Discharge Information Condition at Discharge: Improved Follow Up: Weeks Disposition/Orders: D/C to Another Facility Patient Instructions Patient Instructions time > 30 min SHARITA GARCIA MD October 24, 2016 09:59
[2016-10-24 11:00] VITALS: BP 151/60
== END 2016-10-24 15:54 | disposition home or self-care (01) | DRG 64 ==
LOC: ER 01:58 → 4 NORTH 03:20
PROVIDERS: ADMIT Internal Medicine; ATTEND Internal Medicine
DX: I63.9 Cerebral infarction, unspecified (principal); G93.41 Metabolic encephalopathy; I13.0 Hypertensive heart and chronic kidney disease with heart failure and stage 1 through stage 4 chronic kidney disease, or unspecified chronic kidney disease; J98.11 Atelectasis; E11.40 Type 2 diabetes mellitus with diabetic neuropathy, unspecified; E11.22 Type 2 diabetes mellitus with diabetic chronic kidney disease; I50.9 Heart failure, unspecified; K21.9 Gastro-esophageal reflux disease without esophagitis; Y95 Nosocomial condition; M81.0 Age-related osteoporosis without current pathological fracture; Z90.710 Acquired absence of both cervix and uterus; F32.9 Major depressive disorder, single episode, unspecified; F41.9 Anxiety disorder, unspecified; K59.00 Constipation, unspecified; M19.90 Unspecified osteoarthritis, unspecified site; M54.5 Low back pain; N18.3 Chronic kidney disease, stage 3 (moderate); Z83.3 Family history of diabetes mellitus; Z86.73 Personal history of transient ischemic attack (TIA), and cerebral infarction without residual deficits; Z90.49 Acquired absence of other specified parts of digestive tract; Z99.3 Dependence on wheelchair
CPT/HCPCS: 36415; 51701; 70450; 71010; 80048; 80053; 80061; 81001; 82140; 82947; 83036; 83605; 84443; 84484; 85027; 85610; 85730; 87040; 87641; 93005; 93306; 93880; 96360; G0238; G6038; J1815; J1956; J2543; J3010; J3370; J7040; 80196; 92610; 99285-25

== ENCOUNTER 2016-12-04 17:59 | Inpatient (IN) | payer MEDICARE, OTHER ==
[~2016-12-04] VITALS: Ht 175.3 cm; Wt 111.1 kg
[2016-12-04] MEDS ORDERED: AMMONIA AROMATIC 15% INHALANT AMPUL. ONE (18:02)
[2016-12-04] MEDS ORDERED: DEXTROSE 50% 25 GM / 50ML DISP.SYRIN. IV ONE ×3 (18:04→19:15)
[2016-12-04 18:22] LABS: BASO % 1 % (0-3); EOS % 3 % (0-3); HEMATOCRIT 37.6 % (36.0-47.0); HEMOGLOBIN 12.4 g/dL (12.0-15.5); LYMPH % 17 % (24-48); MEAN CORPUSCULAR HEMOGLOBIN 27 pg (25-35); MEAN CORPUSCULAR HGB CONC 33 g/dL (31-37); MEAN CORPUSCULAR VOLUME 81 fL (79-100); MONO % 11 % (0-9); NEUT % 67 % (31-73); PLATELET COUNT 240 x10^3/uL (140-400); RED BLOOD COUNT 4.63 x10^6/uL (3.50-5.40); RED CELL DISTRIBUTION WIDTH 16.8 % (11.5-14.5); WHITE BLOOD COUNT 5.7 x10^3/uL (4.0-11.0)
[2016-12-04 18:30] LABS: BILIRUBIN,URINE NEGATIVE (NEG); GLUCOSE,URINE NEGATIVE (NEG); NITRITE,URINE NEGATIVE (NEG); PROTEIN,URINE NEGATIVE (NEG-TRACE); UROBILINOGEN,URINE 0.2 mg/dL (0.2 mg/dL)
[2016-12-04 18:36] LABS: BACTERIA,URINE 0 /HPF (0-FEW); RBC,URINE OCC /HPF (0-2); WBC,URINE OCC /HPF (0-4)
[2016-12-04 18:40] LABS: HCO3 ABG 30 mmol/L (21-28); PH ABG 7.31 (7.35-7.45); PO2 ABG 68 mmHg (65-108); SAT O2 ABG 92 % (92-99)
[2016-12-04 18:41] LABS: CALCIUM 9.3 mg/dL (8.5-10.1); GFR 65.6; POTASSIUM 3.9 mmol/L (3.5-5.1)
[2016-12-04 18:46] LABS: FIO2 ABG 21; PCO2 ABG 60 mmHg (35-46)
[2016-12-04 18:47] LABS: ALBUMIN/GLOBULIN RATIO 0.7 (1.0-1.7); TOTAL BILIRUBIN 0.2 mg/dL (0.2-1.0); TOTAL PROTEIN 7.3 g/dL (6.4-8.2)
--- NOTE | 2016-12-04 19:00 | RAD ---
CT head without intravenous contrast History: Altered mental status, unresponsive, hypertension. Comparison: CT head October 23, 2016. Technique: Axial images are obtained of the head from the skull base through the vertex without IV contrast. Exposure: One or more of the following individualized dose reduction techniques were utilized for this examination: 1. Automated exposure control 2. Adjustment of the mA and/or kV according to patient size 3. Use of iterative reconstruction technique Findings: There is motion artifact at multiple levels which could obscure subtle abnormalities. The ventricles are appropriate in size, shape, and location for the patient's age. No obvious intracranial mass, mass-effect, midline shift, hemorrhage or obvious acute infarction is identified. Basilar cisterns are patent. Bone windows demonstrate no acute calvarial abnormality. The visualized paranasal sinuses appear clear. Impression: No acute intracranial process. Please note that CT can be relatively insensitive to acute ischemic infarction for up to 24 hours after symptom onset. Electronically signed by: Keith Torres MD (12/04/2016 6:57 PM)
[2016-12-04] MEDS ORDERED: IV DEXTROSE 5 %-0.45 % NACL 1,000 ML IV ONE (19:15)
[2016-12-04] MEDS ORDERED: ONDANSETRON PF 4 MG/2 ML VIAL. IV PRN (21:00)
--- NOTE | 2016-12-04 21:25 | ED.ADGEN ---
Past Medical History Past Medical History: Diabetes-Type II, Hypertension, Renal Disease Additional Past Medical Histor: GENERALIZED WEAKNESS, OSTEOPOROSIS Past Surgical History: Appendectomy, Cholecystectomy, Hysterectomy Alcohol Use: None Drug Use: None Adult General Chief Complaint Chief Complaint: ALTERED MENTAL STATUS HPI HPI Patient is a 76 year old -[place]in[place] residential patient who presents with altered mental status, diaphoresis and hypoglycemia. Patient found obtunded with GCS of 6 and blood sugar of 41. 1 amp of D50 given by EMS prior to ED arrival. Patient briefly alert and verbal, but returns to obtunded state. No witnessed seizure reported seizure episode at residential facility. History is unobtainable due to the patient's presentation. Review of medications reviewed, patient is on Levemir 20 units twice a day. Review of Systems Review of Systems Review of symptoms unable to obtain. Current Medications Current Medications Current Medications Medications (Trade) Dose Ordered Sig/Rose Start Time Stop Time Status Last Admin Dose Admin Ammonia (Aromatic Spirit) (Amoply) 1 each STK-MED ONCE 12/04/16 18:02 12/04/16 18:03 DC Dextrose (Dextrose 50%-Water Syringe) 25 gm STK-MED ONCE 12/04/16 19:15 12/04/16 19:16 DC Dextrose/Sodium Chloride 1,000 ml @ 150 mls/hr 1X ONCE 12/04/16 19:15 12/05/16 01:54 12/04/16 19:22 150 MLS/HR Lorazepam (Ativan) 0.5 mg 1X ONCE 12/04/16 21:00 12/04/16 21:01 DC Ondansetron HCl (Zofran) 4 mg PRN Q8HRS PRN 12/04/16 21:00 12/05/16 20:59 Allergies Allergies Allergies Coded Allergies Type Severity Reaction Last Updated Verified I S O L A T I O N *CONTACT* Allergy Unknown 10/24/16 Yes No Known Medication Allergies Allergy Unknown 10/24/16 Yes Physical Exam Physical Exam Constitutional: Obtunded, I Bo, GCS of 7 HENT: Normocephalic, atraumatic, bilateral external ears normal, oropharynx moist, no oral exudates, nose normal. Eyes: AZALEA. Neck: Supple Cardiovascular:Heart rate regular rhythm, no murmur. Lungs & Thorax: Bilateral breath sounds clear to auscultation Abdomen: Bowel sounds normal, soft. Skin: Diaphoretic. Back: No tenderness. Extremities: No Neurologic: CS of 7.] Current Patient Data Vital Signs Vital Signs Date Time Temp Pulse Resp B/P (MAP) Pulse Ox O2 Delivery O2 Flow Rate FiO2 12/04/16 21:13 97.7 97.7 12/04/16 18:42 92 Room Air 12/04/16 18:32 59 20 121/67 (85) Lab Values Laboratory Tests Test 12/04/16 18:14 12/04/16 18:21 12/04/16 18:24 12/04/16 19:06 White Blood Count 5.7 x10^3/uL (4.0-11.0) Red Blood Count 4.63 x10^6/uL (3.50-5.40) Hemoglobin 12.4 g/dL (12.0-15.5) Hematocrit 37.6 % (36.0-47.0) Mean Corpuscular Volume 81 fL (79-100) Mean Corpuscular Hemoglobin 27 pg (25-35) Mean Corpuscular Hemoglobin Concent 33 g/dL (31-37) Red Cell Distribution Width 16.8 % (11.5-14.5) H Platelet Count 240 x10^3/uL (140-400) Neutrophils (%) (Auto) 67 % (31-73) Lymphocytes (%) (Auto) 17 % (24-48) L Monocytes (%) (Auto) 11 % (0-9) H Eosinophils (%) (Auto) 3 % (0-3) Basophils (%) (Auto) 1 % (0-3) Neutrophils # (Auto) 3.9 x10^3uL (1.8-7.7) Lymphocytes # (Auto) 1.0 x10^3/uL (1.0-4.8) Monocytes # (Auto) 0.7 x10^3/uL (0.0-1.1) Eosinophils # (Auto) 0.2 x10^3/uL (0.0-0.7) Basophils # (Auto) 0.0 x10^3/uL (0.0-0.2) Sodium Level 133 mmol/L (136-145) L Potassium Level 3.9 mmol/L (3.5-5.1) Chloride Level 95 mmol/L (98-107) L Carbon Dioxide Level 34 mmol/L (21-32) H Anion Gap 4 (6-14) L Blood Urea Nitrogen 19 mg/dL (7-20) Creatinine 1.0 mg/dL (0.6-1.0) Estimated GFR (Cockcroft-Gault) 65.6 BUN/Creatinine Ratio 19 (6-20) Glucose Level 79 mg/dL (70-99) Calcium Level 9.3 mg/dL (8.5-10.1) Total Bilirubin 0.2 mg/dL (0.2-1.0) Aspartate Amino Transferase (AST) 24 U/L (15-37) Alanine Aminotransferase (ALT) 27 U/L (14-59) Alkaline Phosphatase 129 U/L (46-116) H Troponin I Quantitative < 0.017 ng/mL (0.000-0.055) Total Protein 7.3 g/dL (6.4-8.2) Albumin 3.0 g/dL (3.4-5.0) L Albumin/Globulin Ratio 0.7 (1.0-1.7) L O2 Saturation 92 % (92-99) Arterial Blood pH 7.31 (7.35-7.45) L Arterial Blood pCO2 at Patient Temp 60 mmHg (35-46) *H Arterial Blood pO2 at Patient Temp 68 mmHg (65-108) Arterial Blood HCO3 30 mmol/L (21-28) H Arterial Blood Base Excess 2 mmol/L (-3-3) FiO2 21 Urine Collection Type U cath Urine Color Yellow Urine Clarity Clear Urine pH 7.0 Urine Specific [place] 1.010 Urine Protein Negative mg/dL (NEG-TRACE) Urine Glucose (UA) Negative mg/dL (NEG) Urine Ketones (Stick) Negative mg/dL (NEG) Urine Blood Negative (NEG) Urine Nitrite Negative (NEG) Urine Bilirubin Negative (NEG) Urine Urobilinogen Dipstick 0.2 mg/dL (0.2 mg/dL) Urine Leukocyte Esterase Trace (NEG) Urine RBC Occ /HPF (0-2) Urine WBC Occ /HPF (0-4) Urine Renal Epithelial Cells Few /LPF Urine Bacteria 0 /HPF (0-FEW) Urine Hyaline Casts Few /HPF Urine Mucus Slight /LPF Glucose (Fingerstick) 42 mg/dL (70-99) *L Test 12/04/16 19:42 12/04/16 20:16 12/04/16 21:10 Glucose (Fingerstick) 115 mg/dL (70-99) H 114 mg/dL (70-99) H 94 mg/dL (70-99) Laboratory Tests 12/04/16 18:14 Laboratory Tests 12/04/16 18:14 EKG EKG [] Radiology/Procedures Radiology/Procedures [CT head: No radiology report] Course & Med Decision Making Course & Med Decision Making Pertinent Labs and Imaging studies reviewed. (See chart for details) [Altered mental status secondary to refractory hypoglycemia. Patient requiring D5 drip with repeat and some D50 in the ED. Patient with return of GCS to 13- 14. Ativan given for anxiety. Dr. pedroza to admit.] Adiel Disclaimer Adiel Disclaimer This electronic medical record was generated, in whole or in part, using a voice recognition dictation system. KENYETTA LUCIANO DO Dec 04, 2016 21:25
--- NOTE | 2016-12-04 21:36 | ACF ---
Admission Forms Criteria DIABETES, HYPOGLYCEMIA Clinical Indications for Admission to Inpatient Care (Place 'X' for any and all applicable criteria): Admission is indicated for ALL of the following (1)(2)(3)(4)(5): [X]I. Suspected or documented hypoglycemia (plasma glucose less than 50 mg/dL (2.78 mmol/L)) with severe clinical manifestations or issues as indicated by ANY ONE of the following: [X]a) Altered mental status (eg, coma, confusion) [ ]b) Seizure [ ]c) Ataxia [ ]d) Dysphasia [ ]e) Focal neurologic deficit(6) [ ]f) Severe weakness or fatigue [ ]g) Significant clinical signs or symptoms that do not resolve with treatment [ ]h) Hypoglycemia induced by ANY ONE of the following(7)(8)(9): [ ]i) Sulfonylurea(10) [ ]ii) Long-acting insulin (eg, half-life more than 6 hours ) (11) [X]II. Management at other levels of care (See General Criteria: Observation Care) is not feasible because of ANY ONE of the following: [ ]a) Condition was not adequately corrected with treatment at other levels of care. [X]b) Treatment at other levels of care is not appropriate because of condition severity (eg, coma). Extended stay beyond goal length of stay may be needed for(3)(12)(19): [ ]a) Long acting sulfonylurea-inducing hypoglycemia (10) [ ]b) Presentation in coma [ ]c) Identified etiology of hypoglycemia requires ongoing care (eg, infection ) [ ]d) Neurologic deficit [ ]e) Active serious comorbidities (eg, renal failure, heart failure) The original [facility] content created by [employer] has been revised. The portions of the content which have been revised are identified through the use of italic text or in bold, and [facility] has neither reviewed nor approved the modified material.All other unmodified content is copyright [facility]. Please see references footnoted in the original [facility] edition 2016 Admission Criteria Met?: Yes KRISTI HERNANDEZ Dec 04, 2016 21:36
--- NOTE | 2016-12-04 22:28 | PDOC1 ---
History and Physical Date of Admission Date of Admission DATE: 12/04/16 TIME: 22:16 Identification/Chief Complaint Chief Complaint confusion, lethargy Problems: Source Source: Caregiver, Chart review History of Present Illness History of Present Illness Ms. Boggs, is a 76 year old -[place]ian, admit from ER for acute confusion, lethargy, hypoglycemia, hypothermia. She is a group home patient who presents with altered mental status, diaphoresis that happened suddenly tonight, [facility]. Presente to ER w/ GCS of 6 and blood sugar of 41, and D50 was given in field. Patient briefly alert and verbal, and now more alert than previous, now reports thirsty and hungry. NOt oriented. No witnessed seizure activity, but suspected by ER physician from report. Past Medical History Cardiovascular: CHF, HTN GI: Constipation, GERD Psych: Anxiety, Depression Musculoskeletal: Osteoarthritis Endocrine: Diabetes, Osteoporosis Past Surgical History Past Surgical History: No pertinent history Family History Family History: Diabetes Social History ALCOHOL: none Drugs: None Current Problem List Problem List Problems Medical Problems: (1) Altered mental status Status: Acute Problems: Current Medications Current Medications Current Medications Ammonia (Aromatic Spirit) (Amoply) 1 each STK-MED ONCE .ROUTE ; Start 12/04/16 at 18:02; Stop 12/04/16 at 18:03; Status DC Dextrose (Dextrose 50%-Water Syringe) 25 gm STK-MED ONCE IV ; Start 12/04/16 at 18:04; Stop 12/04/16 at 18:05; Status DC Dextrose/Sodium Chloride 1,000 ml @ 150 mls/hr 1X ONCE IV Last administered on 12/04/16 19:22; Start 12/04/16 at 19:15; Stop 12/05/16 at 01:54 Dextrose (Dextrose 50%-Water Syringe) 25 gm 1X ONCE IV Last administered on 19:09; Start 12/04/16 at 19:15; Stop 12/04/16 at 19:16; Status DC Dextrose (Dextrose 50%-Water Syringe) 25 gm STK-MED ONCE IV ; Start 12/04/16 at 19:15; Stop 12/04/16 at 19:16; Status DC Lorazepam (Ativan) 0.5 mg 1X ONCE IV Last administered on 12/04/16 21:23; Start 12/04/16 at 21:00; Stop 12/04/16 at 21:01; Status DC Ondansetron HCl (Zofran) 4 mg PRN Q8HRS PRN IV NAUSEA/VOMITING; Start 12/04/16 at 21:00; Stop 12/05/16 at 20:59 Allergies Allergies: Coded Allergies: I S O L A T I O N *CONTACT* (Verified Allergy, Unknown, 10/24/16) mrsa No Known Medication Allergies (Verified Allergy, Unknown, 10/24/16) ROS Review of System confusion, lethargy, complains of dry mouth, dry eyes, would like to drink something, other ROS unable Physical Exam General: mild distress, Other (confused, follows all commands) HEENT: Atraumatic, PERRLA, Other (sclera injected) Lungs: Other (low vol. no wheeze, dull bases, ) Heart: no murmurs Abdomen: Normal bowel sounds, Soft Extremities: No clubbing, Other (1+ BLE edema, ) Skin: No rashes, No significant lesion Neuro: Sensation intact Psych/Mental Status: Other (confused, lethargic, will answer some questions , requests something to drink repeatedly) Vitals Vitals Vital Signs Date Time Temp Pulse Resp B/P (MAP) Pulse Ox O2 Delivery O2 Flow Rate FiO2 12/04/16 21:13 97.7 97.7 12/04/16 18:42 92 Room Air 12/04/16 18:32 59 20 121/67 (85) Labs Labs Laboratory Tests Test 12/04/16 18:14 12/04/16 18:21 12/04/16 18:24 12/04/16 19:06 White Blood Count 5.7 x10^3/uL (4.0-11.0) Red Blood Count 4.63 x10^6/uL (3.50-5.40) Hemoglobin 12.4 g/dL (12.0-15.5) Hematocrit 37.6 % (36.0-47.0) Mean Corpuscular Volume 81 fL (79-100) Mean Corpuscular Hemoglobin 27 pg (25-35) Mean Corpuscular Hemoglobin Concent 33 g/dL (31-37) Red Cell Distribution Width 16.8 % (11.5-14.5) Platelet Count 240 x10^3/uL (140-400) Neutrophils (%) (Auto) 67 % (31-73) Lymphocytes (%) (Auto) 17 % (24-48) Monocytes (%) (Auto) 11 % (0-9) Eosinophils (%) (Auto) 3 % (0-3) Basophils (%) (Auto) 1 % (0-3) Neutrophils # (Auto) 3.9 x10^3uL (1.8-7.7) Lymphocytes # (Auto) 1.0 x10^3/uL (1.0-4.8) Monocytes # (Auto) 0.7 x10^3/uL (0.0-1.1) Eosinophils # (Auto) 0.2 x10^3/uL (0.0-0.7) Basophils # (Auto) 0.0 x10^3/uL (0.0-0.2) Sodium Level 133 mmol/L (136-145) Potassium Level 3.9 mmol/L (3.5-5.1) Chloride Level 95 mmol/L (98-107) Carbon Dioxide Level 34 mmol/L (21-32) Anion Gap 4 (6-14) Blood Urea Nitrogen 19 mg/dL (7-20) Creatinine 1.0 mg/dL (0.6-1.0) Estimated GFR (Cockcroft-Gault) 65.6 BUN/Creatinine Ratio 19 (6-20) Glucose Level 79 mg/dL (70-99) Calcium Level 9.3 mg/dL (8.5-10.1) Total Bilirubin 0.2 mg/dL (0.2-1.0) Aspartate Amino Transf (AST/SGOT) 24 U/L (15-37) Alanine Aminotransferase (ALT/SGPT) 27 U/L (14-59) Alkaline Phosphatase 129 U/L (46-116) Troponin I Quantitative < 0.017 ng/mL (0.000-0.055) Total Protein 7.3 g/dL (6.4-8.2) Albumin 3.0 g/dL (3.4-5.0) Albumin/Globulin Ratio 0.7 (1.0-1.7) O2 Saturation 92 % (92-99) Arterial Blood pH 7.31 (7.35-7.45) Arterial Blood pCO2 at Patient Temp 60 mmHg (35-46) Arterial Blood pO2 at Patient Temp 68 mmHg (65-108) Arterial Blood HCO3 30 mmol/L (21-28) Arterial Blood Base Excess 2 mmol/L (-3-3) FiO2 21 Urine Collection Type U cath Urine Color Yellow Urine Clarity Clear Urine pH 7.0 Urine Specific [place] 1.010 Urine Protein Negative mg/dL (NEG-TRACE) Urine Glucose (UA) Negative mg/dL (NEG) Urine Ketones (Stick) Negative mg/dL (NEG) Urine Blood Negative (NEG) Urine Nitrite Negative (NEG) Urine Bilirubin Negative (NEG) Urine Urobilinogen Dipstick 0.2 mg/dL (0.2 mg/dL) Urine Leukocyte Esterase Trace (NEG) Urine RBC Occ /HPF (0-2) Urine WBC Occ /HPF (0-4) Urine Renal Epithelial Cells Few /LPF Urine Bacteria 0 /HPF (0-FEW) Urine Hyaline Casts Few /HPF Urine Mucus Slight /LPF Glucose (Fingerstick) 42 mg/dL (70-99) Test 12/04/16 19:42 12/04/16 20:16 12/04/16 21:10 Glucose (Fingerstick) 115 mg/dL (70-99) 114 mg/dL (70-99) 94 mg/dL (70-99) Laboratory Tests Test 12/04/16 18:14 12/04/16 18:21 12/04/16 18:24 12/04/16 19:06 White Blood Count 5.7 x10^3/uL (4.0-11.0) Red Blood Count 4.63 x10^6/uL (3.50-5.40) Hemoglobin 12.4 g/dL (12.0-15.5) Hematocrit 37.6 % (36.0-47.0) Mean Corpuscular Volume 81 fL (79-100) Mean Corpuscular Hemoglobin 27 pg (25-35) Mean Corpuscular Hemoglobin Concent 33 g/dL (31-37) Red Cell Distribution Width 16.8 % (11.5-14.5) Platelet Count 240 x10^3/uL (140-400) Neutrophils (%) (Auto) 67 % (31-73) Lymphocytes (%) (Auto) 17 % (24-48) Monocytes (%) (Auto) 11 % (0-9) Eosinophils (%) (Auto) 3 % (0-3) Basophils (%) (Auto) 1 % (0-3) Neutrophils # (Auto) 3.9 x10^3uL (1.8-7.7) Lymphocytes # (Auto) 1.0 x10^3/uL (1.0-4.8) Monocytes # (Auto) 0.7 x10^3/uL (0.0-1.1) Eosinophils # (Auto) 0.2 x10^3/uL (0.0-0.7) Basophils # (Auto) 0.0 x10^3/uL (0.0-0.2) Sodium Level 133 mmol/L (136-145) Potassium Level 3.9 mmol/L (3.5-5.1) Chloride Level 95 mmol/L (98-107) Carbon Dioxide Level 34 mmol/L (21-32) Anion Gap 4 (6-14) Blood Urea Nitrogen 19 mg/dL (7-20) Creatinine 1.0 mg/dL (0.6-1.0) Estimated GFR (Cockcroft-Gault) 65.6 BUN/Creatinine Ratio 19 (6-20) Glucose Level 79 mg/dL (70-99) Calcium Level 9.3 mg/dL (8.5-10.1) Total Bilirubin 0.2 mg/dL (0.2-1.0) Aspartate Amino Transf (AST/SGOT) 24 U/L (15-37) Alanine Aminotransferase (ALT/SGPT) 27 U/L (14-59) Alkaline Phosphatase 129 U/L (46-116) Troponin I Quantitative < 0.017 ng/mL (0.000-0.055) Total Protein 7.3 g/dL (6.4-8.2) Albumin 3.0 g/dL (3.4-5.0) Albumin/Globulin Ratio 0.7 (1.0-1.7) O2 Saturation 92 % (92-99) Arterial Blood pH 7.31 (7.35-7.45) Arterial Blood pCO2 at Patient Temp 60 mmHg (35-46) Arterial Blood pO2 at Patient Temp 68 mmHg (65-108) Arterial Blood HCO3 30 mmol/L (21-28) Arterial Blood Base Excess 2 mmol/L (-3-3) FiO2 21 Urine Collection Type U cath Urine Color Yellow Urine Clarity Clear Urine pH 7.0 Urine Specific [place] 1.010 Urine Protein Negative mg/dL (NEG-TRACE) Urine Glucose (UA) Negative mg/dL (NEG) Urine Ketones (Stick) Negative mg/dL (NEG) Urine Blood Negative (NEG) Urine Nitrite Negative (NEG) Urine Bilirubin Negative (NEG) Urine Urobilinogen Dipstick 0.2 mg/dL (0.2 mg/dL) Urine Leukocyte Esterase Trace (NEG) Urine RBC Occ /HPF (0-2) Urine WBC Occ /HPF (0-4) Urine Renal Epithelial Cells Few /LPF Urine Bacteria 0 /HPF (0-FEW) Urine Hyaline Casts Few /HPF Urine Mucus Slight /LPF Glucose (Fingerstick) 42 mg/dL (70-99) Test 12/04/16 19:42 12/04/16 20:16 12/04/16 21:10 Glucose (Fingerstick) 115 mg/dL (70-99) 114 mg/dL (70-99) 94 mg/dL (70-99) VTE Prophylaxis Ordered VTE Prophylaxis Devices: No VTE Pharmacological Prophylaxi: Yes Assessment/Plan Assessment/Plan Acute metabolic encephalopathy hypoglycemia in Dm2, insulin req. with jail complications acute acidosis with hypercarbia on ABG acute on chronic hypercarbia, serum bicarb high Htn, poor control mod malnutrition hypercarbia, acute on chronic hypercarbic failure, admit to ICU warmer placed in ER consult PULM pt came from facility with DNR order, october try Bipap, SHARITA GARCIA MD Dec 04, 2016 22:28
[2016-12-04] MEDS ORDERED: POLYVINYL ALCOHOL 1.4% OPHTH SOLUTION 15ML BOTTLE. OU PRN (22:30)
[2016-12-04] MEDS ORDERED: methylPREDNISolone SOD SUCC PF 125 MG/2 ML VIAL. IV ONE (22:30)
[2016-12-04] MEDS ORDERED: HYDROCORTISONE SOD SUCC/PF 100 MG/2 ML VIAL. IV ONE (22:30)
[2016-12-04] MEDS ORDERED: SALIVA STIMULANT AGENT 44ML SPRAY BOTTLE. PO PRN (22:30)
[2016-12-04] MEDS ORDERED: AZITHROMYCIN 500 MG in IV NORMAL SALINE 250ML 250 ML IV ONE (23:00)
[2016-12-04] MEDS ORDERED: VANCOMYCIN 2 GM in IV NORMAL SALINE 500ML BAG 500 ML IV ONE (23:00)
[2016-12-04] MEDS ORDERED: BUDESONIDE 0.5 MG/2 ML NEBU. NEB ONE (23:00)
[2016-12-04 23:15] VITALS: BP 184/86
[2016-12-04 23:30] VITALS: BP 171/97
[2016-12-05] VITALS (14 sets, daily range): BP systolic 126–190; BP diastolic 61–95
[2016-12-05] MEDS: VANCOMYCIN PER PHARMACY MC PRN (01:54)
[2016-12-05] MEDS ORDERED: DULO60CA6 PO (02:16)
[2016-12-05] MEDS ORDERED: LOSA100T2 PO (02:16)
[2016-12-05] MEDS ORDERED: FURO-69 PO (02:16)
[2016-12-05] MEDS ORDERED: CYCL10TA2 PO (02:16)
[2016-12-05] MEDS ORDERED: MAGN2400 PO (02:16)
[2016-12-05] MEDS ORDERED: QUET25TA5 PO (02:16)
[2016-12-05] MEDS ORDERED: CARV12.5 PO (02:16)
[2016-12-05] MEDS ORDERED: AMLO10TA4 PO (02:16)
[2016-12-05] MEDS ORDERED: INSU100V13 SQ (02:16)
[2016-12-05] MEDS ORDERED: NA P133E2 RC (02:16)
[2016-12-05] MEDS ORDERED: LINA5TAB4 PO (02:16)
[2016-12-05] MEDS ORDERED: BISA10SU55 RC (02:16)
[2016-12-05] MEDS ORDERED: HYDR-2758 PO (02:16)
[2016-12-05] MEDS ORDERED: ERGO500027 PO (02:16)
[2016-12-05] MEDS ORDERED: CELE200C PO (02:16)
[2016-12-05] MEDS ORDERED: DOCU-109 PO (02:16)
[2016-12-05] MEDS ORDERED: MAG360OR24 PO (02:16)
[2016-12-05] MEDS ORDERED: POTASSIUM CHLO10 MEQ PO (02:16)
[2016-12-05] MEDS ORDERED: ASPI-630 PO (02:16)
[2016-12-05] MEDS ORDERED: DEXT1DRO8 OP (02:16)
[2016-12-05] MEDS ORDERED: OXCA300T3 PO (02:16)
[2016-12-05] MEDS ORDERED: MECL25TA3 PO (02:16)
[2016-12-05] MEDS ORDERED: DICL100G18 TP (02:16)
[2016-12-05] MEDS ORDERED: POLY17PO29 PO (02:16)
[2016-12-05] MEDS ORDERED: INSU100I17 SQ ×2 (02:16)
[2016-12-05] MEDS ORDERED: ACET325T21 PO (02:16)
[2016-12-05] MEDS ORDERED: HYDROCORTISONE SOD SUCC/PF 100 MG/2 ML VIAL. IV SCH (06:00)
[2016-12-05 06:14] LABS: BASO % 0 % (0-3); EOS % 0 % (0-3); HEMATOCRIT 38.4 % (36.0-47.0); HEMOGLOBIN 12.9 g/dL (12.0-15.5); LYMPH # 0.3 x10^3/uL (1.0-4.8); LYMPH % 6 % (24-48); MEAN CORPUSCULAR HEMOGLOBIN 27 pg (25-35); MEAN CORPUSCULAR HGB CONC 34 g/dL (31-37); MEAN CORPUSCULAR VOLUME 80 fL (79-100); MONO % 1 % (0-9); NEUT % 93 % (31-73); PLATELET COUNT 264 x10^3/uL (140-400); RED BLOOD COUNT 4.78 x10^6/uL (3.50-5.40); WHITE BLOOD COUNT 5.6 x10^3/uL (4.0-11.0)
--- NOTE | 2016-12-05 06:28 | EKG ---
[facility] [address] [place] [address] Test Date: 2016-12-04 Test Time: 18:02:50 Pat Name: RILEY BLAIR Department: Room: 108 1 Gender: F [employer] [address] Sql Developer: : 1940 Requested By: KENYETTA LUCIANO Order Number: [id number] Reading MD: Ginny Noyola Measurements Intervals [place] Rate: 60 P: 31 IA: 226 QRS: -17 QRSD: 76 T: 74 QT: 426 QTc: 430 Interpretive Statements SINUS RHYTHM PROLONGED IA INTERVAL LEFTWARD AXIS QRS(T) CONTOUR ABNORMALITY CONSISTENT WITH ANTEROSEPTAL INFARCT PROBABLY OLD T ABNORMALITY IN HIGH LATERAL LEADS Electronically Signed On 12-07-2016 21:15:19 CDT by Ginny Noyola
[2016-12-05 06:33] LABS: CALCIUM 9.3 mg/dL (8.5-10.1); GFR 65.6; POTASSIUM 4.4 mmol/L (3.5-5.1)
--- NOTE | 2016-12-05 07:26 | RAD ---
Indication: Cough and shortness of air. Time of exam 1856 hours. Correlation is made with prior chest from 10/23/2016. The heart size is stable. There appear to be bibasilar infiltrates or atelectasis, partially obscuring the hemidiaphragms. There is central congestion but no overt failure. The mid and upper lung sarkar are clear. No significant effusion or pneumothorax is seen. Impression: Central congestion with mild bibasilar infiltrates or atelectasis.
[2016-12-05] MEDS: IPRATRPIUM/ALBUTEROL 0.5/2.5MG 3 ML NEBU. NEB SCH ×2 (07:43→11:37)
[2016-12-05] MEDS ORDERED: BUDESONIDE 0.5 MG/2 ML NEBU. NEB SCH (08:00)
[2016-12-05] MEDS ORDERED: ONDANSETRON PF 4 MG/2 ML VIAL. IV PRN (08:40)
[2016-12-05] MEDS ORDERED: SODIUM PHOSPHATES 19/7GM 133 ML ENEMA. RC PRN (08:45)
[2016-12-05] MEDS ORDERED: BISACODYL 10 MG SUPP.RECT. RC PRN (08:45)
[2016-12-05] MEDS ORDERED: DEXTROSE 50% 25 GM / 50ML DISP.SYRIN. IV PRN (08:45)
[2016-12-05] MEDS ORDERED: ACETAMINOPHEN 500 MG TABLET PO PRN (08:45)
[2016-12-05] MEDS ORDERED: LABETALOL 20 MG/4 ML DISP.SYRIN. IVP PRN (08:45)
[2016-12-05] MEDS ORDERED: DICLOFENAC SODIUM 1% TOPICAL GEL 100GM TUBE. TP PRN (08:45)
[2016-12-05 08:47] LABS: PLT ESTIMATE ADEQUATE (ADEQUATE)
[2016-12-05] MEDS: POLYETHYLENE GLYCOL 3350 17 GM PACKET. PO SCH (09:00)
[2016-12-05] MEDS ORDERED: MAGNESIUM HYDROXIDE 2,400 MG/30 ML ORAL.SUSP. PO PRN (09:00)
[2016-12-05] MEDS ORDERED: MAG HYDROX/ALUMINUM HYD/SIMETH 30 ML ORAL.SUSP PO PRN (09:00)
[2016-12-05] MEDS ORDERED: MECLIZINE HCL 12.5 MG TABLET. PO PRN (09:00)
--- NOTE | 2016-12-05 10:27 | PDOC ---
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 Pt claims she eats there PT/OT OK to t.o ICU DNR MOnitor lytes supportive care BAre hugger if hypothermic DVT prophy with lovenox NUtrition consult Vitals Vitals Vital Signs Date Time Temp Pulse Resp B/P (MAP) Pulse Ox O2 Delivery O2 Flow Rate FiO2 12/05/16 10:14 116 173/80 12/05/16 10:00 99.3 18 97 Room Air 99.3 Physical Exam General: Cooperative, No acute distress, mild distress, Other (confused, follows all commands) Heart: Regular rate Lungs: Other (normal air entry) Abdomen: Normal bowel sounds, Soft Extremities: No clubbing, Other (1+ BLE edema, ) Skin: No rashes, No significant lesion Labs LABS Laboratory Tests Test 12/04/16 18:05 12/04/16 18:14 12/04/16 18:21 12/04/16 18:24 Glucose (Fingerstick) 98 mg/dL (70-99) White Blood Count 5.7 x10^3/uL (4.0-11.0) Red Blood Count 4.63 x10^6/uL (3.50-5.40) Hemoglobin 12.4 g/dL (12.0-15.5) Hematocrit 37.6 % (36.0-47.0) Mean Corpuscular Volume 81 fL (79-100) Mean Corpuscular Hemoglobin 27 pg (25-35) Mean Corpuscular Hemoglobin Concent 33 g/dL (31-37) Red Cell Distribution Width 16.8 % (11.5-14.5) Platelet Count 240 x10^3/uL (140-400) Neutrophils (%) (Auto) 67 % (31-73) Lymphocytes (%) (Auto) 17 % (24-48) Monocytes (%) (Auto) 11 % (0-9) Eosinophils (%) (Auto) 3 % (0-3) Basophils (%) (Auto) 1 % (0-3) Neutrophils # (Auto) 3.9 x10^3uL (1.8-7.7) Lymphocytes # (Auto) 1.0 x10^3/uL (1.0-4.8) Monocytes # (Auto) 0.7 x10^3/uL (0.0-1.1) Eosinophils # (Auto) 0.2 x10^3/uL (0.0-0.7) Basophils # (Auto) 0.0 x10^3/uL (0.0-0.2) Sodium Level 133 mmol/L (136-145) Potassium Level 3.9 mmol/L (3.5-5.1) Chloride Level 95 mmol/L (98-107) Carbon Dioxide Level 34 mmol/L (21-32) Anion Gap 4 (6-14) Blood Urea Nitrogen 19 mg/dL (7-20) Creatinine 1.0 mg/dL (0.6-1.0) Estimated GFR (Cockcroft-Gault) 65.6 BUN/Creatinine Ratio 19 (6-20) Glucose Level 79 mg/dL (70-99) Calcium Level 9.3 mg/dL (8.5-10.1) Total Bilirubin 0.2 mg/dL (0.2-1.0) Aspartate Amino Transf (AST/SGOT) 24 U/L (15-37) Alanine Aminotransferase (ALT/SGPT) 27 U/L (14-59) Alkaline Phosphatase 129 U/L (46-116) Troponin I Quantitative < 0.017 ng/mL (0.000-0.055) Total Protein 7.3 g/dL (6.4-8.2) Albumin 3.0 g/dL (3.4-5.0) Albumin/Globulin Ratio 0.7 (1.0-1.7) O2 Saturation 92 % (92-99) Arterial Blood pH 7.31 (7.35-7.45) Arterial Blood pCO2 at Patient Temp 60 mmHg (35-46) Arterial Blood pO2 at Patient Temp 68 mmHg (65-108) Arterial Blood HCO3 30 mmol/L (21-28) Arterial Blood Base Excess 2 mmol/L (-3-3) FiO2 21 Urine Collection Type U cath Urine Color Yellow Urine Clarity Clear Urine pH 7.0 Urine Specific [place] 1.010 Urine Protein Negative mg/dL (NEG-TRACE) Urine Glucose (UA) Negative mg/dL (NEG) Urine Ketones (Stick) Negative mg/dL (NEG) Urine Blood Negative (NEG) Urine Nitrite Negative (NEG) Urine Bilirubin Negative (NEG) Urine Urobilinogen Dipstick 0.2 mg/dL (0.2 mg/dL) Urine Leukocyte Esterase Trace (NEG) Urine RBC Occ /HPF (0-2) Urine WBC Occ /HPF (0-4) Urine Renal Epithelial Cells Few /LPF Urine Bacteria 0 /HPF (0-FEW) Urine Hyaline Casts Few /HPF Urine Mucus Slight /LPF Test 12/04/16 19:06 12/04/16 19:42 12/04/16 20:16 12/04/16 21:10 Glucose (Fingerstick) 42 mg/dL (70-99) 115 mg/dL (70-99) 114 mg/dL (70-99) 94 mg/dL (70-99) Test 12/04/16 22:20 12/05/16 01:01 12/05/16 02:39 12/05/16 05:12 Glucose (Fingerstick) 109 mg/dL (70-99) 129 mg/dL (70-99) 151 mg/dL (70-99) 228 mg/dL (70-99) Test 12/05/16 05:49 12/05/16 07:40 12/05/16 09:35 White Blood Count 5.6 x10^3/uL (4.0-11.0) Red Blood Count 4.78 x10^6/uL (3.50-5.40) Hemoglobin 12.9 g/dL (12.0-15.5) Hematocrit 38.4 % (36.0-47.0) Mean Corpuscular Volume 80 fL (79-100) Mean Corpuscular Hemoglobin 27 pg (25-35) Mean Corpuscular Hemoglobin Concent 34 g/dL (31-37) Red Cell Distribution Width 17.0 % (11.5-14.5) Platelet Count 264 x10^3/uL (140-400) Neutrophils (%) (Auto) 93 % (31-73) Lymphocytes (%) (Auto) 6 % (24-48) Monocytes (%) (Auto) 1 % (0-9) Eosinophils (%) (Auto) 0 % (0-3) Basophils (%) (Auto) 0 % (0-3) Neutrophils # (Auto) 5.3 x10^3uL (1.8-7.7) Lymphocytes # (Auto) 0.3 x10^3/uL (1.0-4.8) Monocytes # (Auto) 0.0 x10^3/uL (0.0-1.1) Eosinophils # (Auto) 0.0 x10^3/uL (0.0-0.7) Basophils # (Auto) 0.0 x10^3/uL (0.0-0.2) Segmented Neutrophils % 94 % (35-66) Lymphocytes % 5 % (24-48) Monocytes % 1 % (0-10) Platelet Estimate Adequate (ADEQUATE) Sodium Level 129 mmol/L (136-145) Potassium Level 4.4 mmol/L (3.5-5.1) Chloride Level 91 mmol/L (98-107) Carbon Dioxide Level 27 mmol/L (21-32) Anion Gap 11 (6-14) Blood Urea Nitrogen 15 mg/dL (7-20) Creatinine 1.0 mg/dL (0.6-1.0) Estimated GFR (Cockcroft-Gault) 65.6 Glucose Level 258 mg/dL (70-99) Calcium Level 9.3 mg/dL (8.5-10.1) Glucose (Fingerstick) 307 mg/dL (70-99) 301 mg/dL (70-99) Review of Systems Review of Systems confused, does not keep to one topic- hard to obtain ROS Assessment and Plan Assessmemt and Plan Problems Medical Problems: (1) Altered mental status Status: Acute Problems: Comment Review of Relevant I have reviewed the following items halle (where applicable) has been applied. Labs Laboratory Tests Test 12/04/16 18:05 12/04/16 18:14 12/04/16 18:21 12/04/16 18:24 Glucose (Fingerstick) 98 mg/dL (70-99) White Blood Count 5.7 x10^3/uL (4.0-11.0) Red Blood Count 4.63 x10^6/uL (3.50-5.40) Hemoglobin 12.4 g/dL (12.0-15.5) Hematocrit 37.6 % (36.0-47.0) Mean Corpuscular Volume 81 fL (79-100) Mean Corpuscular Hemoglobin 27 pg (25-35) Mean Corpuscular Hemoglobin Concent 33 g/dL (31-37) Red Cell Distribution Width 16.8 % (11.5-14.5) Platelet Count 240 x10^3/uL (140-400) Neutrophils (%) (Auto) 67 % (31-73) Lymphocytes (%) (Auto) 17 % (24-48) Monocytes (%) (Auto) 11 % (0-9) Eosinophils (%) (Auto) 3 % (0-3) Basophils (%) (Auto) 1 % (0-3) Neutrophils # (Auto) 3.9 x10^3uL (1.8-7.7) Lymphocytes # (Auto) 1.0 x10^3/uL (1.0-4.8) Monocytes # (Auto) 0.7 x10^3/uL (0.0-1.1) Eosinophils # (Auto) 0.2 x10^3/uL (0.0-0.7) Basophils # (Auto) 0.0 x10^3/uL (0.0-0.2) Sodium Level 133 mmol/L (136-145) Potassium Level 3.9 mmol/L (3.5-5.1) Chloride Level 95 mmol/L (98-107) Carbon Dioxide Level 34 mmol/L (21-32) Anion Gap 4 (6-14) Blood Urea Nitrogen 19 mg/dL (7-20) Creatinine 1.0 mg/dL (0.6-1.0) Estimated GFR (Cockcroft-Gault) 65.6 BUN/Creatinine Ratio 19 (6-20) Glucose Level 79 mg/dL (70-99) Calcium Level 9.3 mg/dL (8.5-10.1) Total Bilirubin 0.2 mg/dL (0.2-1.0) Aspartate Amino Transf (AST/SGOT) 24 U/L (15-37) Alanine Aminotransferase (ALT/SGPT) 27 U/L (14-59) Alkaline Phosphatase 129 U/L (46-116) Troponin I Quantitative < 0.017 ng/mL (0.000-0.055) Total Protein 7.3 g/dL (6.4-8.2) Albumin 3.0 g/dL (3.4-5.0) Albumin/Globulin Ratio 0.7 (1.0-1.7) O2 Saturation 92 % (92-99) Arterial Blood pH 7.31 (7.35-7.45) Arterial Blood pCO2 at Patient Temp 60 mmHg (35-46) Arterial Blood pO2 at Patient Temp 68 mmHg (65-108) Arterial Blood HCO3 30 mmol/L (21-28) Arterial Blood Base Excess 2 mmol/L (-3-3) FiO2 21 Urine Collection Type U cath Urine Color Yellow Urine Clarity Clear Urine pH 7.0 Urine Specific [place] 1.010 Urine Protein Negative mg/dL (NEG-TRACE) Urine Glucose (UA) Negative mg/dL (NEG) Urine Ketones (Stick) Negative mg/dL (NEG) Urine Blood Negative (NEG) Urine Nitrite Negative (NEG) Urine Bilirubin Negative (NEG) Urine Urobilinogen Dipstick 0.2 mg/dL (0.2 mg/dL) Urine Leukocyte Esterase Trace (NEG) Urine RBC Occ /HPF (0-2) Urine WBC Occ /HPF (0-4) Urine Renal Epithelial Cells Few /LPF Urine Bacteria 0 /HPF (0-FEW) Urine Hyaline Casts Few /HPF Urine Mucus Slight /LPF Test 12/04/16 19:06 12/04/16 19:42 12/04/16 20:16 12/04/16 21:10 Glucose (Fingerstick) 42 mg/dL (70-99) 115 mg/dL (70-99) 114 mg/dL (70-99) 94 mg/dL (70-99) Test 12/04/16 22:20 12/05/16 01:01 12/05/16 02:39 12/05/16 05:12 Glucose (Fingerstick) 109 mg/dL (70-99) 129 mg/dL (70-99) 151 mg/dL (70-99) 228 mg/dL (70-99) Test 12/05/16 05:49 12/05/16 07:40 12/05/16 09:35 White Blood Count 5.6 x10^3/uL (4.0-11.0) Red Blood Count 4.78 x10^6/uL (3.50-5.40) Hemoglobin 12.9 g/dL (12.0-15.5) Hematocrit 38.4 % (36.0-47.0) Mean Corpuscular Volume 80 fL (79-100) Mean Corpuscular Hemoglobin 27 pg (25-35) Mean Corpuscular Hemoglobin Concent 34 g/dL (31-37) Red Cell Distribution Width 17.0 % (11.5-14.5) Platelet Count 264 x10^3/uL (140-400) Neutrophils (%) (Auto) 93 % (31-73) Lymphocytes (%) (Auto) 6 % (24-48) Monocytes (%) (Auto) 1 % (0-9) Eosinophils (%) (Auto) 0 % (0-3) Basophils (%) (Auto) 0 % (0-3) Neutrophils # (Auto) 5.3 x10^3uL (1.8-7.7) Lymphocytes # (Auto) 0.3 x10^3/uL (1.0-4.8) Monocytes # (Auto) 0.0 x10^3/uL (0.0-1.1) Eosinophils # (Auto) 0.0 x10^3/uL (0.0-0.7) Basophils # (Auto) 0.0 x10^3/uL (0.0-0.2) Segmented Neutrophils % 94 % (35-66) Lymphocytes % 5 % (24-48) Monocytes % 1 % (0-10) Platelet Estimate Adequate (ADEQUATE) Sodium Level 129 mmol/L (136-145) Potassium Level 4.4 mmol/L (3.5-5.1) Chloride Level 91 mmol/L (98-107) Carbon Dioxide Level 27 mmol/L (21-32) Anion Gap 11 (6-14) Blood Urea Nitrogen 15 mg/dL (7-20) Creatinine 1.0 mg/dL (0.6-1.0) Estimated GFR (Cockcroft-Gault) 65.6 Glucose Level 258 mg/dL (70-99) Calcium Level 9.3 mg/dL (8.5-10.1) Glucose (Fingerstick) 307 mg/dL (70-99) 301 mg/dL (70-99) Laboratory Tests Test 12/04/16 18:05 12/04/16 18:14 12/04/16 18:21 12/04/16 18:24 Glucose (Fingerstick) 98 mg/dL (70-99) White Blood Count 5.7 x10^3/uL (4.0-11.0) Red Blood Count 4.63 x10^6/uL (3.50-5.40) Hemoglobin 12.4 g/dL (12.0-15.5) Hematocrit 37.6 % (36.0-47.0) Mean Corpuscular Volume 81 fL (79-100) Mean Corpuscular Hemoglobin 27 pg (25-35) Mean Corpuscular Hemoglobin Concent 33 g/dL (31-37) Red Cell Distribution Width 16.8 % (11.5-14.5) Platelet Count 240 x10^3/uL (140-400) Neutrophils (%) (Auto) 67 % (31-73) Lymphocytes (%) (Auto) 17 % (24-48) Monocytes (%) (Auto) 11 % (0-9) Eosinophils (%) (Auto) 3 % (0-3) Basophils (%) (Auto) 1 % (0-3) Neutrophils # (Auto) 3.9 x10^3uL (1.8-7.7) Lymphocytes # (Auto) 1.0 x10^3/uL (1.0-4.8) Monocytes # (Auto) 0.7 x10^3/uL (0.0-1.1) Eosinophils # (Auto) 0.2 x10^3/uL (0.0-0.7) Basophils # (Auto) 0.0 x10^3/uL (0.0-0.2) Sodium Level 133 mmol/L (136-145) Potassium Level 3.9 mmol/L (3.5-5.1) Chloride Level 95 mmol/L (98-107) Carbon Dioxide Level 34 mmol/L (21-32) Anion Gap 4 (6-14) Blood Urea Nitrogen 19 mg/dL (7-20) Creatinine 1.0 mg/dL (0.6-1.0) Estimated GFR (Cockcroft-Gault) 65.6 BUN/Creatinine Ratio 19 (6-20) Glucose Level 79 mg/dL (70-99) Calcium Level 9.3 mg/dL (8.5-10.1) Total Bilirubin 0.2 mg/dL (0.2-1.0) Aspartate Amino Transf (AST/SGOT) 24 U/L (15-37) Alanine Aminotransferase (ALT/SGPT) 27 U/L (14-59) Alkaline Phosphatase 129 U/L (46-116) Troponin I Quantitative < 0.017 ng/mL (0.000-0.055) Total Protein 7.3 g/dL (6.4-8.2) Albumin 3.0 g/dL (3.4-5.0) Albumin/Globulin Ratio 0.7 (1.0-1.7) O2 Saturation 92 % (92-99) Arterial Blood pH 7.31 (7.35-7.45) Arterial Blood pCO2 at Patient Temp 60 mmHg (35-46) Arterial Blood pO2 at Patient Temp 68 mmHg (65-108) Arterial Blood HCO3 30 mmol/L (21-28) Arterial Blood Base Excess 2 mmol/L (-3-3) FiO2 21 Urine Collection Type U cath Urine Color Yellow Urine Clarity Clear Urine pH 7.0 Urine Specific [place] 1.010 Urine Protein Negative mg/dL (NEG-TRACE) Urine Glucose (UA) Negative mg/dL (NEG) Urine Ketones (Stick) Negative mg/dL (NEG) Urine Blood Negative (NEG) Urine Nitrite Negative (NEG) Urine Bilirubin Negative (NEG) Urine Urobilinogen Dipstick 0.2 mg/dL (0.2 mg/dL) Urine Leukocyte Esterase Trace (NEG) Urine RBC Occ /HPF (0-2) Urine WBC Occ /HPF (0-4) Urine Renal Epithelial Cells Few /LPF Urine Bacteria 0 /HPF (0-FEW) Urine Hyaline Casts Few /HPF Urine Mucus Slight /LPF Test 12/04/16 19:06 12/04/16 19:42 12/04/16 20:16 12/04/16 21:10 Glucose (Fingerstick) 42 mg/dL (70-99) 115 mg/dL (70-99) 114 mg/dL (70-99) 94 mg/dL (70-99) Test 12/04/16 22:20 12/05/16 01:01 12/05/16 02:39 12/05/16 05:12 Glucose (Fingerstick) 109 mg/dL (70-99) 129 mg/dL (70-99) 151 mg/dL (70-99) 228 mg/dL (70-99) Test 12/05/16 05:49 12/05/16 07:40 12/05/16 09:35 White Blood Count 5.6 x10^3/uL (4.0-11.0) Red Blood Count 4.78 x10^6/uL (3.50-5.40) Hemoglobin 12.9 g/dL (12.0-15.5) Hematocrit 38.4 % (36.0-47.0) Mean Corpuscular Volume 80 fL (79-100) Mean Corpuscular Hemoglobin 27 pg (25-35) Mean Corpuscular Hemoglobin Concent 34 g/dL (31-37) Red Cell Distribution Width 17.0 % (11.5-14.5) Platelet Count 264 x10^3/uL (140-400) Neutrophils (%) (Auto) 93 % (31-73) Lymphocytes (%) (Auto) 6 % (24-48) Monocytes (%) (Auto) 1 % (0-9) Eosinophils (%) (Auto) 0 % (0-3) Basophils (%) (Auto) 0 % (0-3) Neutrophils # (Auto) 5.3 x10^3uL (1.8-7.7) Lymphocytes # (Auto) 0.3 x10^3/uL (1.0-4.8) Monocytes # (Auto) 0.0 x10^3/uL (0.0-1.1) Eosinophils # (Auto) 0.0 x10^3/uL (0.0-0.7) Basophils # (Auto) 0.0 x10^3/uL (0.0-0.2) Segmented Neutrophils % 94 % (35-66) Lymphocytes % 5 % (24-48) Monocytes % 1 % (0-10) Platelet Estimate Adequate (ADEQUATE) Sodium Level 129 mmol/L (136-145) Potassium Level 4.4 mmol/L (3.5-5.1) Chloride Level 91 mmol/L (98-107) Carbon Dioxide Level 27 mmol/L (21-32) Anion Gap 11 (6-14) Blood Urea Nitrogen 15 mg/dL (7-20) Creatinine 1.0 mg/dL (0.6-1.0) Estimated GFR (Cockcroft-Gault) 65.6 Glucose Level 258 mg/dL (70-99) Calcium Level 9.3 mg/dL (8.5-10.1) Glucose (Fingerstick) 307 mg/dL (70-99) 301 mg/dL (70-99) Medications Current Medications Ammonia (Aromatic Spirit) (Amoply) 1 each STK-MED ONCE .ROUTE ; Start 12/04/16 at 18:02; Stop 12/04/16 at 18:03; Status DC Dextrose (Dextrose 50%-Water Syringe) 25 gm STK-MED ONCE IV ; Start 12/04/16 at 18:04; Stop 12/04/16 at 18:05; Status DC Dextrose/Sodium Chloride 1,000 ml @ 150 mls/hr 1X ONCE IV Last administered on 12/04/16 19:22; Start 12/04/16 at 19:15; Stop 12/05/16 at 01:54; Status DC Dextrose (Dextrose 50%-Water Syringe) 25 gm 1X ONCE IV Last administered on 19:09; Start 12/04/16 at 19:15; Stop 12/04/16 at 19:16; Status DC Dextrose (Dextrose 50%-Water Syringe) 25 gm STK-MED ONCE IV ; Start 12/04/16 at 19:15; Stop 12/04/16 at 19:16; Status DC Lorazepam (Ativan) 0.5 mg 1X ONCE IV Last administered on 12/04/16 21:23; Start 12/04/16 at 21:00; Stop 12/04/16 at 21:01; Status DC Ondansetron HCl (Zofran) 4 mg PRN Q8HRS PRN IV NAUSEA/VOMITING; Start 12/04/16 at 21:00; Stop 12/05/16 at 08:44; Status DC Hydrocortisone Sodium Succinate (Solu-CORTEF) 100 mg 1X ONCE IV ; Start at 22:30; Stop 12/04/16 at 22:30; Status DC Hydrocortisone Sodium Succinate (Solu-CORTEF) 100 mg Q8HRS IV ; Start 12/05/16 at 06:00; Stop 12/05/16 at 06:00; Status DC Methylprednisolone Sodium Succinate (SOLU-Medrol 125MG VIAL) 125 mg 1X ONCE IV Last administered on 12/04/16 23:30; Start 12/04/16 at 22:30; Stop 12/04/16 at 22:31; Status DC Prednisone (Prednisone) 40 mg DAILY PO ; Start 12/05/16 at 09:00 Albuterol/ Ipratropium (Duoneb) 3 ml Q4HRS W/A NEB Last administered on 07:43; Start 12/05/16 at 06:00 Budesonide (Pulmicort) 0.5 mg RTBID NEB Last administered on 12/05/16 07:43; Start 12/05/16 at 08:00 Budesonide (Pulmicort) 0.5 mg 1X ONCE NEB ; Start 12/04/16 at 23:00; Stop 12/04 at 23:01; Status DC Vancomycin HCl (Vanco Per Pharmacy) 1 each PRN DAILY PRN MC SEE COMMENTS Last administered on 12/05/16 01:54; Start 12/04/16 at 22:30 Azithromycin 500 mg/Sodium Chloride 250 ml @ 250 mls/hr 1X ONCE IV Last administered on 12/04/16 23:27; Start 12/04/16 at 23:00; Stop 12/04/16 at 23:59 ; Status DC Azithromycin 250 mg/Sodium Chloride 250 ml @ 250 mls/hr Q24H IV ; Start at 23:00 Saliva Substitute (Biotene Moisturizing Mouth) 2 spray PRN Q15MIN PRN PO DRY MOUTH; Start 12/04/16 at 22:30 Artificial Tears (Artificial Tears) 1 drop PRN Q15MIN PRN OU DRY EYE; Start at 22:30 Vancomycin HCl 2 gm/Sodium Chloride 500 ml @ 250 mls/hr 1X ONCE IV Last administered on 12/04/16 23:30; Start 12/04/16 at 23:00; Stop 12/05/16 at 00:59 ; Status DC Vancomycin HCl 1.5 gm/Sodium Chloride 500 ml @ 250 mls/hr Q12H IV ; Start 12/05 at 11:00 Vancomycin HCl 1 each 1X ONCE MC ; Start 12/06/16 at 10:30; Stop 12/06/16 at 10 :31 Ondansetron HCl (Zofran) 4 mg PRN Q6HRS PRN IV NAUSEA/VOMITING; Start 12/05/16 at 08:40; Stop 12/06/16 at 08:39 Labetalol HCl (Normodyne) 10 mg PRN Q2HR PRN IVP HYPERTENSION, SEE COMMENTS Last administered on 12/05/16t 10:14; Start 12/05/16 at 08:45 Acetaminophen (Tylenol) 500 mg PRN Q6HRS PRN PO MILD PAIN / TEMP; Start at 08:45 Acetaminophen (Tylenol) 650 mg Q6HRS PO ; Start 12/05/16 at 12:00 Amlodipine Besylate (Norvasc) 10 mg DAILY PO ; Start 12/05/16 at 09:00 Aspirin (Children'S Aspirin) 81 mg DAILYWBKFT PO ; Start 12/05/16 at 09:00 Bisacodyl (Dulcolax Supp) 10 mg PRN DAILY PRN RC CONSTIPATION; Start 12/05/16 at 08:45 Carvedilol (Coreg) 12.5 mg BIDWMEALS PO ; Start 12/05/16 at 09:00 Celecoxib (CeleBREX) 200 mg DAILY PO ; Start 12/05/16 at 09:00 Cyclobenzaprine HCl (Flexeril) 10 mg TID PO ; Start 12/05/16 at 09:00 Diclofenac Sodium (Voltaren) 1 fabian TID PRN TP PAIN; Start 12/05/16 at 08:45 Docusate Sodium (Colace) 100 mg DAILY PO ; Start 12/05/16 at 09:00 Ergocalciferol (Vitamin D2) 50,000 unit WEEKLY PO ; Start 12/09/16 at 09:00 Furosemide (Lasix) 60 mg DAILY PO ; Start 12/05/16 at 09:00 Acetaminophen/ Hydrocodone Bitart (Lortab 5/325) 1 tab PRN Q8HRS PRN PO PAIN; Start 12/05/16 at 08:45 Linagliptin (Tradjenta) 5 mg DAILY PO ; Start 12/05/16 at 09:00 Sodium Monofluorophosphate (Fleet Adult) 133 ml DAILY PRN RC CONSTIPATION; Start 12/05/16 at 08:45 Oxcarbazepine (Trileptal) 300 mg TID PO ; Start 12/05/16 at 09:00 Polyethylene Glycol (miraLAX PACKET) 17 gm DAILY PO ; Start 12/05/16 at 09:00 Quetiapine Fumarate (SEROquel) 25 mg Q6HRS PRN PO AGITATION; Start 12/05/16 at 08:45 Artificial Tears (Artificial Tears) 1 drop TID OU ; Start 12/05/16 at 09:00 Duloxetine HCl (Cymbalta) 60 mg BID PO ; Start 12/05/16 at 09:00 Losartan Potassium (Cozaar) 100 mg DAILY PO ; Start 12/05/16 at 09:00 Al Hydroxide/Mg Hydroxide (Mylanta Plus Xs) 30 ml PRN Q4HRS PRN PO HEARTBURN / GAS; Start 12/05/16 at 09:00 Magnesium Hydroxide (Milk Of Magnesia) 2,400 mg PRN DAILY PRN PO CONSTIPATION; Start 12/05/16 at 09:00 Meclizine HCl (Antivert) 25 mg PRN Q8HRS PRN PO DIZZINESS; Start 12/05/16 at 09 :00 Potassium Chloride (Klor-Con) 10 meq DAILYWBKFT PO ; Start 12/05/16 at 09:00 Insulin Aspart (NovoLOG) 0-9 UNITS TIDWMEALS SQ ; Start 12/05/16 at 12:00 Dextrose (Dextrose 50%-Water Syringe) 12.5 gm PRN Q15MIN PRN IV SEE COMMENTS; Start 12/05/16 at 08:45 Active Scripts Active Reported Novolog Flexpen (Insulin Aspart) 100 Unit/1 Ml Insuln.pen 15 Unit SQ TID Novolog Flexpen (Insulin Aspart) 100 Unit/1 Ml Insuln.pen 1 Unit SQ Voltaren (Diclofenac Sodium) 100 Gm Gel..gram. 1 Gm TP TID PRN Vitamin D2 (Ergocalciferol (Vitamin D2)) 50,000 Unit Capsule 1 Cap PO WEEKLY Trileptal (Oxcarbazepine) 300 Mg Tablet 300 Mg PO TID Tradjenta (Linagliptin) 5 Mg Tablet 1 Tab PO DAILY Seroquel (Quetiapine Fumarate) 25 Mg Tablet 1 Tab PO Q6HRS PRN Potassium Chloride 10 Meq Capsule.er 10 Meq PO DAILY Norvasc (Amlodipine Besylate) 10 Mg Tablet 10 Mg PO DAILY Alum-Mag Hydroxide-Simeth Liq (Mag Hydrox/Al Hydrox/Simeth) 360 Ml Oral.susp 360 Ml PO Q4HRS PRN Miralax (Polyethylene Glycol 3350) 17 Gm Powd.pack 1 Packet PO DAILY Milk Of Magnesia (Magnesium Hydroxide) 2,400 Mg/10 Ml Oral.susp 2,400 Mg PO DAILY PRN Meclizine Hcl 25 Mg Tablet 25 Mg PO Q8HRS PRN Hydrocodone-Apap 5-325 (Hydrocodone Bit/Acetaminophen) 1 Each Tablet 1 Tab PO PRN Q8HRS PRN Levemir (Insulin Detemir) 100 Unit/1 Ml Vial 20 Unit SQ BID Lasix (Furosemide) 20 Mg Tablet 3 Tab PO DAILY Cyclobenzaprine Hcl 10 Mg Tablet 1 Tab PO TID Fleet Enema (Na Phos,M-B/Na Phos,Di-Ba) 133 Ml Enema 133 Ml RC DAILY PRN Dulcolax (Bisacodyl) 10 Mg Supp.rect 10 Mg RC PRN DAILY PRN Cymbalta (Duloxetine Hcl) 60 Mg Capsule.dr 1 Cap PO BID Cozaar (Losartan Potassium) 100 Mg Tablet 100 Mg PO DAILY Coreg (Carvedilol) 12.5 Mg Tablet 1 Tab PO BID Colace (Docusate Sodium) 100 Mg Capsule 100 Mg PO DAILY Celebrex (Celecoxib) 200 Mg Capsule 1 Cap PO DAILY Aspirin 81 Mg Tab.chew 1 Tab PO DAILY Artificial Tears Drops (Dextran 70/Hypromellose/Pf) 1 Each Droperette 1 Each OP TID Acetaminophen 325 Mg Tablet 650 Mg PO Q6HRS Vitals/I & O Vital Sign - Last 24 Hours 12/04/16 12/04/16 12/04/16 12/04/16 18:00 18:12 18:24 18:32 Temp 94.9 94.9 Pulse 60 59 69 59 Resp 20 B/P (MAP) 124/61 (82) 121/67 (85) 141/77 (98) 121/67 (85) Pulse Ox 97 99 97 98 O2 Delivery Room Air 12/04/16 12/04/16 12/04/16 12/04/16 18:42 19:20 19:46 20:17 Temp 93.8 93.2 97.3 93.8 93.2 97.3 Pulse Ox 92 O2 Delivery Room Air 12/04/16 12/04/16 12/04/16 12/04/16 20:19 20:34 20:52 21:04 Temp 97.7 97.7 Pulse 82 86 94 Resp 16 28 33 B/P (MAP) 173/77 (109) 175/90 (118) 183/70 (107) Pulse Ox 97 96 96 O2 Delivery Room Air Room Air Room Air 12/04/16 12/04/16 12/04/16 12/04/16 21:13 21:34 22:04 22:19 Temp 97.7 97.7 Pulse 96 106 108 Resp 35 B/P (MAP) 144/66 (92) 184/91 (122) 179/89 (119) Pulse Ox 96 94 94 O2 Delivery Room Air Room Air Room Air 12/04/16 12/04/16 12/04/16 12/04/16 22:23 22:34 23:15 23:30 Temp 98.4 99.4 98.4 99.4 Pulse 112 108 110 Resp 37 18 20 B/P (MAP) 186/68 (107) 184/86 (118) 171/97 (121) Pulse Ox 94 95 95 O2 Delivery Room Air Room Air Room Air 12/04/16 12/05/16 12/05/16 12/05/16 23:30 00:00 01:00 02:00 Pulse 108 108 114 Resp 24 22 B/P (MAP) 159/84 (109) 185/93 (123) 174/81 (112) Pulse Ox 95 95 95 O2 Delivery Room Air Room Air Room Air Room Air 12/05/16 12/05/16 12/05/16 12/05/16 03:00 04:00 04:00 05:00 Temp 99.3 99.3 Pulse 114 117 114 Resp 24 22 25 B/P (MAP) 157/82 (107) 164/93 (116) 185/85 (118) Pulse Ox 94 96 95 O2 Delivery Room Air Room Air Room Air Room Air 12/05/16 12/05/16 12/05/16 12/05/16 06:00 07:00 07:46 08:12 Temp 99.3 99.3 Pulse 115 115 Resp 23 18 B/P (MAP) 188/86 (120) 190/95 (126) Pulse Ox 99 99 97 O2 Delivery Room Air Room Air Room Air Room Air 12/05/16 12/05/16 12/05/16 08:14 10:00 10:14 Temp 99.3 99.3 99.3 99.3 Pulse 115 116 116 Resp 18 18 B/P (MAP) 170/90 (116) 173/80 (111) 173/80 Pulse Ox 97 97 O2 Delivery Room Air Room Air Intake and Output 12/04/16 12/04/16 12/05/16 15:00 23:00 07:00 Intake Total 1332 ml Balance 1332 ml PEREZ MEDRANO MD Dec 05, 2016 10:27
[2016-12-05] MEDS: CELECOXIB 200 MG CAPSULE. PO SCH (10:51)
[2016-12-05] MEDS: DULoxetine HCL 30 MG CAPSULE.DR PO SCH ×2 (10:51→20:38)
[2016-12-05] MEDS: LINAGLIPTIN 5 MG TABLET PO SCH (10:51)
[2016-12-05] MEDS: POTASSIUM CHLORIDE 10 MEQ TABLET.ER. PO SCH (10:51)
[2016-12-05] MEDS: DOCUSATE SODIUM 100 MG CAPSULE. PO SCH (10:51)
[2016-12-05] MEDS: ASPIRIN CHEWABLE 81 MG TABLET. PO SCH (10:52)
[2016-12-05] MEDS: FUROSEMIDE 20 MG TABLET PO SCH (10:52)
[2016-12-05] MEDS: amLODIPine BESYLATE 10 MG TABLET PO SCH (10:53)
[2016-12-05] MEDS: CYCLOBENZAPRINE 10 MG TABLET. PO SCH ×3 (10:53→20:38)
[2016-12-05] MEDS: QUEtiapine 25 MG TABLET. PO PRN (10:53)
[2016-12-05] MEDS: CARVEDILOL 12.5 MG TABLET. PO SCH ×2 (10:54→16:59)
[2016-12-05] MEDS: predniSONE 20 MG TABLET PO SCH (10:54)
[2016-12-05] MEDS: ENOXAPARIN 40 MG/0.4 ML SYRINGE. SQ SCH (10:55)
[2016-12-05] MEDS: POLYVINYL ALCOHOL 1.4% OPHTH SOLUTION 15ML BOTTLE. OU SCH ×3 (10:55→20:38)
[2016-12-05] MEDS: VANCOMYCIN 1.5 GM in IV NORMAL SALINE 500ML BAG 500 ML IV SCH ×2 (11:00→14:57)
[2016-12-05] MEDS: LOSARTAN POTASSIUM 50 MG TABLET. PO SCH (11:17)
[2016-12-05] MEDS: OXcarbazepine 300 MG TABLET PO SCH ×3 (11:21→20:38)
[2016-12-05] MEDS: INSULIN ASPART 300 UNITS/3 ML INSULN.PEN SQ SCH ×2 (12:00→17:02)
[2016-12-05] MEDS: ACETAMINOPHEN 325 MG TABLET. PO SCH ×2 (12:00→17:00)
--- NOTE | 2016-12-05 17:42 | PDOC2 ---
CONSULT Date of Consult Date of Consult DATE: 12/05/16 TIME: 17:33 Reason for Consult Reason for Consult: ABNORMAL ABG HYPERCAPNIA Identification/Chief Complaint Chief Complaint NONE PT WANTS TO GO HOME Problems: History of Present Illness Reason for Visit: PT PRESENT WITH ACUTE CONFUSION LETHARGY FOUND TO BE HYPOGLYCEMIC PLACE IN ICU ABG RESULT NOTED I WAS CONSULTED PT NOW ON FLOOR NO RESP COMPLAINTS WANTS TO GO HOME SHE SMOKED MANY YEARS AGO DOES NOT WEAR O2 NO PRIOR SLEEP STUDY DENIES SOA NO PRODUCTIVE COUGH DENIES FEVER Past Medical History Cardiovascular: CHF, HTN GI: Constipation, GERD Psych: Anxiety, Depression Musculoskeletal: Osteoarthritis Endocrine: Diabetes, Osteoporosis Past Surgical History Past Surgical History: No pertinent history Family History Family History: Diabetes Social History No ALCOHOL: none Drugs: None Current Problem List Problem List Problems Medical Problems: (1) Altered mental status Status: Acute Current Medications Current Medications Current Medications Ammonia (Aromatic Spirit) (Amoply) 1 each STK-MED ONCE .ROUTE ; Start 12/04/16 at 18:02; Stop 12/04/16 at 18:03; Status DC Dextrose (Dextrose 50%-Water Syringe) 25 gm STK-MED ONCE IV ; Start 12/04/16 at 18:04; Stop 12/04/16 at 18:05; Status DC Dextrose/Sodium Chloride 1,000 ml @ 150 mls/hr 1X ONCE IV Last administered on 12/04/16 19:22; Start 12/04/16 at 19:15; Stop 12/05/16 at 01:54; Status DC Dextrose (Dextrose 50%-Water Syringe) 25 gm 1X ONCE IV Last administered on 19:09; Start 12/04/16 at 19:15; Stop 12/04/16 at 19:16; Status DC Dextrose (Dextrose 50%-Water Syringe) 25 gm STK-MED ONCE IV ; Start 12/04/16 at 19:15; Stop 12/04/16 at 19:16; Status DC Lorazepam (Ativan) 0.5 mg 1X ONCE IV Last administered on 12/04/16 21:23; Start 12/04/16 at 21:00; Stop 12/04/16 at 21:01; Status DC Ondansetron HCl (Zofran) 4 mg PRN Q8HRS PRN IV NAUSEA/VOMITING; Start 12/04/16 at 21:00; Stop 12/05/16 at 08:44; Status DC Hydrocortisone Sodium Succinate (Solu-CORTEF) 100 mg 1X ONCE IV ; Start at 22:30; Stop 12/04/16 at 22:30; Status DC Hydrocortisone Sodium Succinate (Solu-CORTEF) 100 mg Q8HRS IV ; Start 12/05/16 at 06:00; Stop 12/05/16 at 06:00; Status DC Methylprednisolone Sodium Succinate (SOLU-Medrol 125MG VIAL) 125 mg 1X ONCE IV Last administered on 12/04/16 23:30; Start 12/04/16 at 22:30; Stop 12/04/16 at 22:31; Status DC Prednisone (Prednisone) 40 mg DAILY PO Last administered on 12/05/16 10:54; Start 12/05/16 at 09:00 Albuterol/ Ipratropium (Duoneb) 3 ml Q4HRS W/A NEB Last administered on 11:37; Start 12/05/16 at 06:00; Stop 12/05/16 at 12:47; Status DC Budesonide (Pulmicort) 0.5 mg RTBID NEB Last administered on 12/05/16 07:43; Start 12/05/16 at 08:00; Stop 12/05/16 at 12:47; Status DC Budesonide (Pulmicort) 0.5 mg 1X ONCE NEB ; Start 12/04/16 at 23:00; Stop 12/04 at 23:01; Status DC Vancomycin HCl (Vanco Per Pharmacy) 1 each PRN DAILY PRN MC SEE COMMENTS Last administered on 12/05/16 01:54; Start 12/04/16 at 22:30 Azithromycin 500 mg/Sodium Chloride 250 ml @ 250 mls/hr 1X ONCE IV Last administered on 12/04/16 23:27; Start 12/04/16 at 23:00; Stop 12/04/16 at 23:59 ; Status DC Azithromycin 250 mg/Sodium Chloride 250 ml @ 250 mls/hr Q24H IV ; Start at 23:00 Saliva Substitute (Biotene Moisturizing Mouth) 2 spray PRN Q15MIN PRN PO DRY MOUTH; Start 12/04/16 at 22:30 Artificial Tears (Artificial Tears) 1 drop PRN Q15MIN PRN OU DRY EYE; Start at 22:30 Vancomycin HCl 2 gm/Sodium Chloride 500 ml @ 250 mls/hr 1X ONCE IV Last administered on 12/04/16 23:30; Start 12/04/16 at 23:00; Stop 12/05/16 at 00:59 ; Status DC Vancomycin HCl 1.5 gm/Sodium Chloride 500 ml @ 250 mls/hr Q12H IV ; Start 12/05 at 11:00 Vancomycin HCl 1 each 1X ONCE MC ; Start 12/06/16 at 10:30; Stop 12/06/16 at 10 :31 Ondansetron HCl (Zofran) 4 mg PRN Q6HRS PRN IV NAUSEA/VOMITING; Start 12/05/16 at 08:40; Stop 12/06/16 at 08:39 Labetalol HCl (Normodyne) 10 mg PRN Q2HR PRN IVP HYPERTENSION, SEE COMMENTS Last administered on 12/05/16 10:14; Start 12/05/16 at 08:45 Acetaminophen (Tylenol) 500 mg PRN Q6HRS PRN PO MILD PAIN / TEMP; Start at 08:45 Acetaminophen (Tylenol) 650 mg Q6HRS PO Last administered on 12/05/16 17:00; Start 12/05/16 at 12:00 Amlodipine Besylate (Norvasc) 10 mg DAILY PO Last administered on 12/05/16 10: 53; Start 12/05/16 at 09:00 Aspirin (Children'S Aspirin) 81 mg DAILYWBKFT PO Last administered on 10:52; Start 12/05/16 at 09:00 Bisacodyl (Dulcolax Supp) 10 mg PRN DAILY PRN RC CONSTIPATION; Start 12/05/16 at 08:45 Carvedilol (Coreg) 12.5 mg BIDWMEALS PO Last administered on 12/05/16 16:59; Start 12/05/16 at 09:00 Celecoxib (CeleBREX) 200 mg DAILY PO Last administered on 12/05/16 10:51; Start 12/05/16 at 09:00 Cyclobenzaprine HCl (Flexeril) 10 mg TID PO Last administered on 12/05/16 14: 57; Start 12/05/16 at 09:00 Diclofenac Sodium (Voltaren) 1 fabian TID PRN TP PAIN; Start 12/05/16 at 08:45 Docusate Sodium (Colace) 100 mg DAILY PO Last administered on 12/05/16 10:51; Start 12/05/16 at 09:00 Ergocalciferol (Vitamin D2) 50,000 unit WEEKLY PO ; Start 12/09/16 at 09:00 Furosemide (Lasix) 60 mg DAILY PO Last administered on 12/05/16 10:52; Start 12/05/16 at 09:00 Acetaminophen/ Hydrocodone Bitart (Lortab 5/325) 1 tab PRN Q8HRS PRN PO PAIN; Start 12/05/16 at 08:45 Linagliptin (Tradjenta) 5 mg DAILY PO Last administered on 12/05/16 10:51; Start 12/05/16 at 09:00 Sodium Monofluorophosphate (Fleet Adult) 133 ml DAILY PRN RC CONSTIPATION; Start 12/05/16 at 08:45 Oxcarbazepine (Trileptal) 300 mg TID PO Last administered on 12/05/16 14:57; Start 12/05/16 at 09:00 Polyethylene Glycol (miraLAX PACKET) 17 gm DAILY PO ; Start 12/05/16 at 09:00 Quetiapine Fumarate (SEROquel) 25 mg Q6HRS PRN PO AGITATION Last administered on 12/05/16 10:53; Start 12/05/16 at 08:45 Artificial Tears (Artificial Tears) 1 drop TID OU Last administered on 14:57; Start 12/05/16 at 09:00 Duloxetine HCl (Cymbalta) 60 mg BID PO Last administered on 12/05/16 10:51; Start 12/05/16 at 09:00 Losartan Potassium (Cozaar) 100 mg DAILY PO Last administered on 12/05/16 11: 17; Start 12/05/16 at 09:00 Al Hydroxide/Mg Hydroxide (Mylanta Plus Xs) 30 ml PRN Q4HRS PRN PO HEARTBURN / GAS; Start 12/05/16 at 09:00 Magnesium Hydroxide (Milk Of Magnesia) 2,400 mg PRN DAILY PRN PO CONSTIPATION; Start 12/05/16 at 09:00 Meclizine HCl (Antivert) 25 mg PRN Q8HRS PRN PO DIZZINESS; Start 12/05/16 at 09 :00 Potassium Chloride (Klor-Con) 10 meq DAILYWBKFT PO Last administered on 10:51; Start 12/05/16 at 09:00 Insulin Aspart (NovoLOG) 0-9 UNITS TIDWMEALS SQ Last administered on 12/05/16 17:02; Start 12/05/16 at 12:00 Dextrose (Dextrose 50%-Water Syringe) 12.5 gm PRN Q15MIN PRN IV SEE COMMENTS; Start 12/05/16 at 08:45 Enoxaparin Sodium (Lovenox 40mg Syringe) 40 mg Q24H SQ Last administered on 10:55; Start 12/05/16 at 11:00 Albuterol/ Ipratropium (Duoneb) 3 ml PRN Q4HRS PRN NEB SHORTNESS OF BREATH; Start 12/06/16 at 10:00 Active Scripts Active Reported Novolog Flexpen (Insulin Aspart) 100 Unit/1 Ml Insuln.pen 15 Unit SQ TID Novolog Flexpen (Insulin Aspart) 100 Unit/1 Ml Insuln.pen 1 Unit SQ Voltaren (Diclofenac Sodium) 100 Gm Gel..gram. 1 Gm TP TID PRN Vitamin D2 (Ergocalciferol (Vitamin D2)) 50,000 Unit Capsule 1 Cap PO WEEKLY Trileptal (Oxcarbazepine) 300 Mg Tablet 300 Mg PO TID Tradjenta (Linagliptin) 5 Mg Tablet 1 Tab PO DAILY Seroquel (Quetiapine Fumarate) 25 Mg Tablet 1 Tab PO Q6HRS PRN Potassium Chloride 10 Meq Capsule.er 10 Meq PO DAILY Norvasc (Amlodipine Besylate) 10 Mg Tablet 10 Mg PO DAILY Alum-Mag Hydroxide-Simeth Liq (Mag Hydrox/Al Hydrox/Simeth) 360 Ml Oral.susp 360 Ml PO Q4HRS PRN Miralax (Polyethylene Glycol 3350) 17 Gm Powd.pack 1 Packet PO DAILY Milk Of Magnesia (Magnesium Hydroxide) 2,400 Mg/10 Ml Oral.susp 2,400 Mg PO DAILY PRN Meclizine Hcl 25 Mg Tablet 25 Mg PO Q8HRS PRN Hydrocodone-Apap 5-325 (Hydrocodone Bit/Acetaminophen) 1 Each Tablet 1 Tab PO PRN Q8HRS PRN Levemir (Insulin Detemir) 100 Unit/1 Ml Vial 20 Unit SQ BID Lasix (Furosemide) 20 Mg Tablet 3 Tab PO DAILY Cyclobenzaprine Hcl 10 Mg Tablet 1 Tab PO TID Fleet Enema (Na Phos,M-B/Na Phos,Di-Ba) 133 Ml Enema 133 Ml RC DAILY PRN Dulcolax (Bisacodyl) 10 Mg Supp.rect 10 Mg RC PRN DAILY PRN Cymbalta (Duloxetine Hcl) 60 Mg Capsule.dr 1 Cap PO BID Cozaar (Losartan Potassium) 100 Mg Tablet 100 Mg PO DAILY Coreg (Carvedilol) 12.5 Mg Tablet 1 Tab PO BID Colace (Docusate Sodium) 100 Mg Capsule 100 Mg PO DAILY Celebrex (Celecoxib) 200 Mg Capsule 1 Cap PO DAILY Aspirin 81 Mg Tab.chew 1 Tab PO DAILY Artificial Tears Drops (Dextran 70/Hypromellose/Pf) 1 Each Droperette 1 Each OP TID Acetaminophen 325 Mg Tablet 650 Mg PO Q6HRS Allergies Allergies: Coded Allergies: I S O L A T I O N *CONTACT* (Verified Allergy, Unknown, 10/24/16) mrsa No Known Medication Allergies (Verified Allergy, Unknown, 10/24/16) Physical Exam General: Alert, Oriented X3 Heart: Regular rate, Normal S1, Normal S2 Abdomen: Normal bowel sounds, Soft Extremities: No clubbing, No cyanosis Psych/Mental Status: Mental status NL Vitals VITALS Vital Signs Date Time Temp Pulse Resp B/P (MAP) Pulse Ox O2 Delivery O2 Flow Rate FiO2 12/05/16 16:59 105 163/70 12/05/16 14:40 100.6 18 94 Room Air 100.6 Labs Labs Laboratory Tests Test 12/04/16 18:05 12/04/16 18:14 12/04/16 18:21 12/04/16 18:24 Glucose (Fingerstick) 98 mg/dL (70-99) White Blood Count 5.7 x10^3/uL (4.0-11.0) Red Blood Count 4.63 x10^6/uL (3.50-5.40) Hemoglobin 12.4 g/dL (12.0-15.5) Hematocrit 37.6 % (36.0-47.0) Mean Corpuscular Volume 81 fL (79-100) Mean Corpuscular Hemoglobin 27 pg (25-35) Mean Corpuscular Hemoglobin Concent 33 g/dL (31-37) Red Cell Distribution Width 16.8 % (11.5-14.5) Platelet Count 240 x10^3/uL (140-400) Neutrophils (%) (Auto) 67 % (31-73) Lymphocytes (%) (Auto) 17 % (24-48) Monocytes (%) (Auto) 11 % (0-9) Eosinophils (%) (Auto) 3 % (0-3) Basophils (%) (Auto) 1 % (0-3) Neutrophils # (Auto) 3.9 x10^3uL (1.8-7.7) Lymphocytes # (Auto) 1.0 x10^3/uL (1.0-4.8) Monocytes # (Auto) 0.7 x10^3/uL (0.0-1.1) Eosinophils # (Auto) 0.2 x10^3/uL (0.0-0.7) Basophils # (Auto) 0.0 x10^3/uL (0.0-0.2) Sodium Level 133 mmol/L (136-145) Potassium Level 3.9 mmol/L (3.5-5.1) Chloride Level 95 mmol/L (98-107) Carbon Dioxide Level 34 mmol/L (21-32) Anion Gap 4 (6-14) Blood Urea Nitrogen 19 mg/dL (7-20) Creatinine 1.0 mg/dL (0.6-1.0) Estimated GFR (Cockcroft-Gault) 65.6 BUN/Creatinine Ratio 19 (6-20) Glucose Level 79 mg/dL (70-99) Calcium Level 9.3 mg/dL (8.5-10.1) Total Bilirubin 0.2 mg/dL (0.2-1.0) Aspartate Amino Transf (AST/SGOT) 24 U/L (15-37) Alanine Aminotransferase (ALT/SGPT) 27 U/L (14-59) Alkaline Phosphatase 129 U/L (46-116) Troponin I Quantitative < 0.017 ng/mL (0.000-0.055) Total Protein 7.3 g/dL (6.4-8.2) Albumin 3.0 g/dL (3.4-5.0) Albumin/Globulin Ratio 0.7 (1.0-1.7) O2 Saturation 92 % (92-99) Arterial Blood pH 7.31 (7.35-7.45) Arterial Blood pCO2 at Patient Temp 60 mmHg (35-46) Arterial Blood pO2 at Patient Temp 68 mmHg (65-108) Arterial Blood HCO3 30 mmol/L (21-28) Arterial Blood Base Excess 2 mmol/L (-3-3) FiO2 21 Urine Collection Type U cath Urine Color Yellow Urine Clarity Clear Urine pH 7.0 Urine Specific [place] 1.010 Urine Protein Negative mg/dL (NEG-TRACE) Urine Glucose (UA) Negative mg/dL (NEG) Urine Ketones (Stick) Negative mg/dL (NEG) Urine Blood Negative (NEG) Urine Nitrite Negative (NEG) Urine Bilirubin Negative (NEG) Urine Urobilinogen Dipstick 0.2 mg/dL (0.2 mg/dL) Urine Leukocyte Esterase Trace (NEG) Urine RBC Occ /HPF (0-2) Urine WBC Occ /HPF (0-4) Urine Renal Epithelial Cells Few /LPF Urine Bacteria 0 /HPF (0-FEW) Urine Hyaline Casts Few /HPF Urine Mucus Slight /LPF Test 12/04/16 19:06 12/04/16 19:42 12/04/16 20:16 12/04/16 21:10 Glucose (Fingerstick) 42 mg/dL (70-99) 115 mg/dL (70-99) 114 mg/dL (70-99) 94 mg/dL (70-99) Test 12/04/16 22:20 12/04/16 23:20 12/05/16 01:01 12/05/16 02:39 Glucose (Fingerstick) 109 mg/dL (70-99) 129 mg/dL (70-99) 151 mg/dL (70-99) Nasal Screen MRSA (PCR) Positive (Negative) Test 12/05/16 05:12 12/05/16 05:49 12/05/16 07:40 12/05/16 09:35 Glucose (Fingerstick) 228 mg/dL (70-99) 307 mg/dL (70-99) 301 mg/dL (70-99) White Blood Count 5.6 x10^3/uL (4.0-11.0) Red Blood Count 4.78 x10^6/uL (3.50-5.40) Hemoglobin 12.9 g/dL (12.0-15.5) Hematocrit 38.4 % (36.0-47.0) Mean Corpuscular Volume 80 fL (79-100) Mean Corpuscular Hemoglobin 27 pg (25-35) Mean Corpuscular Hemoglobin Concent 34 g/dL (31-37) Red Cell Distribution Width 17.0 % (11.5-14.5) Platelet Count 264 x10^3/uL (140-400) Neutrophils (%) (Auto) 93 % (31-73) Lymphocytes (%) (Auto) 6 % (24-48) Monocytes (%) (Auto) 1 % (0-9) Eosinophils (%) (Auto) 0 % (0-3) Basophils (%) (Auto) 0 % (0-3) Neutrophils # (Auto) 5.3 x10^3uL (1.8-7.7) Lymphocytes # (Auto) 0.3 x10^3/uL (1.0-4.8) Monocytes # (Auto) 0.0 x10^3/uL (0.0-1.1) Eosinophils # (Auto) 0.0 x10^3/uL (0.0-0.7) Basophils # (Auto) 0.0 x10^3/uL (0.0-0.2) Segmented Neutrophils % 94 % (35-66) Lymphocytes % 5 % (24-48) Monocytes % 1 % (0-10) Platelet Estimate Adequate (ADEQUATE) Sodium Level 129 mmol/L (136-145) Potassium Level 4.4 mmol/L (3.5-5.1) Chloride Level 91 mmol/L (98-107) Carbon Dioxide Level 27 mmol/L (21-32) Anion Gap 11 (6-14) Blood Urea Nitrogen 15 mg/dL (7-20) Creatinine 1.0 mg/dL (0.6-1.0) Estimated GFR (Cockcroft-Gault) 65.6 Glucose Level 258 mg/dL (70-99) Calcium Level 9.3 mg/dL (8.5-10.1) Test 12/05/16 10:39 12/05/16 12:04 12/05/16 16:22 Glucose (Fingerstick) 287 mg/dL (70-99) 309 mg/dL (70-99) 331 mg/dL (70-99) Laboratory Tests Test 12/04/16 18:05 12/04/16 18:14 12/04/16 18:21 12/04/16 18:24 Glucose (Fingerstick) 98 mg/dL (70-99) White Blood Count 5.7 x10^3/uL (4.0-11.0) Red Blood Count 4.63 x10^6/uL (3.50-5.40) Hemoglobin 12.4 g/dL (12.0-15.5) Hematocrit 37.6 % (36.0-47.0) Mean Corpuscular Volume 81 fL (79-100) Mean Corpuscular Hemoglobin 27 pg (25-35) Mean Corpuscular Hemoglobin Concent 33 g/dL (31-37) Red Cell Distribution Width 16.8 % (11.5-14.5) Platelet Count 240 x10^3/uL (140-400) Neutrophils (%) (Auto) 67 % (31-73) Lymphocytes (%) (Auto) 17 % (24-48) Monocytes (%) (Auto) 11 % (0-9) Eosinophils (%) (Auto) 3 % (0-3) Basophils (%) (Auto) 1 % (0-3) Neutrophils # (Auto) 3.9 x10^3uL (1.8-7.7) Lymphocytes # (Auto) 1.0 x10^3/uL (1.0-4.8) Monocytes # (Auto) 0.7 x10^3/uL (0.0-1.1) Eosinophils # (Auto) 0.2 x10^3/uL (0.0-0.7) Basophils # (Auto) 0.0 x10^3/uL (0.0-0.2) Sodium Level 133 mmol/L (136-145) Potassium Level 3.9 mmol/L (3.5-5.1) Chloride Level 95 mmol/L (98-107) Carbon Dioxide Level 34 mmol/L (21-32) Anion Gap 4 (6-14) Blood Urea Nitrogen 19 mg/dL (7-20) Creatinine 1.0 mg/dL (0.6-1.0) Estimated GFR (Cockcroft-Gault) 65.6 BUN/Creatinine Ratio 19 (6-20) Glucose Level 79 mg/dL (70-99) Calcium Level 9.3 mg/dL (8.5-10.1) Total Bilirubin 0.2 mg/dL (0.2-1.0) Aspartate Amino Transf (AST/SGOT) 24 U/L (15-37) Alanine Aminotransferase (ALT/SGPT) 27 U/L (14-59) Alkaline Phosphatase 129 U/L (46-116) Troponin I Quantitative < 0.017 ng/mL (0.000-0.055) Total Protein 7.3 g/dL (6.4-8.2) Albumin 3.0 g/dL (3.4-5.0) Albumin/Globulin Ratio 0.7 (1.0-1.7) O2 Saturation 92 % (92-99) Arterial Blood pH 7.31 (7.35-7.45) Arterial Blood pCO2 at Patient Temp 60 mmHg (35-46) Arterial Blood pO2 at Patient Temp 68 mmHg (65-108) Arterial Blood HCO3 30 mmol/L (21-28) Arterial Blood Base Excess 2 mmol/L (-3-3) FiO2 21 Urine Collection Type U cath Urine Color Yellow Urine Clarity Clear Urine pH 7.0 Urine Specific [place] 1.010 Urine Protein Negative mg/dL (NEG-TRACE) Urine Glucose (UA) Negative mg/dL (NEG) Urine Ketones (Stick) Negative mg/dL (NEG) Urine Blood Negative (NEG) Urine Nitrite Negative (NEG) Urine Bilirubin Negative (NEG) Urine Urobilinogen Dipstick 0.2 mg/dL (0.2 mg/dL) Urine Leukocyte Esterase Trace (NEG) Urine RBC Occ /HPF (0-2) Urine WBC Occ /HPF (0-4) Urine Renal Epithelial Cells Few /LPF Urine Bacteria 0 /HPF (0-FEW) Urine Hyaline Casts Few /HPF Urine Mucus Slight /LPF Test 12/04/16 19:06 12/04/16 19:42 12/04/16 20:16 12/04/16 21:10 Glucose (Fingerstick) 42 mg/dL (70-99) 115 mg/dL (70-99) 114 mg/dL (70-99) 94 mg/dL (70-99) Test 12/04/16 22:20 12/04/16 23:20 12/05/16 01:01 12/05/16 02:39 Glucose (Fingerstick) 109 mg/dL (70-99) 129 mg/dL (70-99) 151 mg/dL (70-99) Nasal Screen MRSA (PCR) Positive (Negative) Test 12/05/16 05:12 12/05/16 05:49 12/05/16 07:40 12/05/16 09:35 Glucose (Fingerstick) 228 mg/dL (70-99) 307 mg/dL (70-99) 301 mg/dL (70-99) White Blood Count 5.6 x10^3/uL (4.0-11.0) Red Blood Count 4.78 x10^6/uL (3.50-5.40) Hemoglobin 12.9 g/dL (12.0-15.5) Hematocrit 38.4 % (36.0-47.0) Mean Corpuscular Volume 80 fL (79-100) Mean Corpuscular Hemoglobin 27 pg (25-35) Mean Corpuscular Hemoglobin Concent 34 g/dL (31-37) Red Cell Distribution Width 17.0 % (11.5-14.5) Platelet Count 264 x10^3/uL (140-400) Neutrophils (%) (Auto) 93 % (31-73) Lymphocytes (%) (Auto) 6 % (24-48) Monocytes (%) (Auto) 1 % (0-9) Eosinophils (%) (Auto) 0 % (0-3) Basophils (%) (Auto) 0 % (0-3) Neutrophils # (Auto) 5.3 x10^3uL (1.8-7.7) Lymphocytes # (Auto) 0.3 x10^3/uL (1.0-4.8) Monocytes # (Auto) 0.0 x10^3/uL (0.0-1.1) Eosinophils # (Auto) 0.0 x10^3/uL (0.0-0.7) Basophils # (Auto) 0.0 x10^3/uL (0.0-0.2) Segmented Neutrophils % 94 % (35-66) Lymphocytes % 5 % (24-48) Monocytes % 1 % (0-10) Platelet Estimate Adequate (ADEQUATE) Sodium Level 129 mmol/L (136-145) Potassium Level 4.4 mmol/L (3.5-5.1) Chloride Level 91 mmol/L (98-107) Carbon Dioxide Level 27 mmol/L (21-32) Anion Gap 11 (6-14) Blood Urea Nitrogen 15 mg/dL (7-20) Creatinine 1.0 mg/dL (0.6-1.0) Estimated GFR (Cockcroft-Gault) 65.6 Glucose Level 258 mg/dL (70-99) Calcium Level 9.3 mg/dL (8.5-10.1) Test 12/05/16 10:39 12/05/16 12:04 12/05/16 16:22 Glucose (Fingerstick) 287 mg/dL (70-99) 309 mg/dL (70-99) 331 mg/dL (70-99) Images Images REVIEWED BASILAR INFILTRATES Assessment/Plan Assessment/Plan ACUTE/CHRONIC HYPERCAPNEA RESP FAILURE POSSIBLE PNEUMONIA MET ENCEPHALOPATHY HYPOGLYCEMIA ABNORMAL CXR PLAN NO NEED FOR BIPAP MAY BENEFIT FROM SLEEP STUDY OUTPT EMPIRIC ANTIBX FOLLOW CLINICAL COURSE AND MAKE FURTHER RECOMMENDATION THANKS MADELINE VELEZ MD Dec 05, 2016 17:42
[2016-12-05] MEDS ORDERED: INSULIN ASPART 300 UNITS/3 ML INSULN.PEN SQ ONE (22:00)
[2016-12-05] MEDS ORDERED: INSULIN DETEMIR 300 UNITS/3 ML INSULN.PEN. SQ ONE (22:00)
[2016-12-05] MEDS: HYDROcodone/APAP 5/325MG 1 TAB TABLET PO PRN (22:40)
[2016-12-05] MEDS ORDERED: AZITHROMYCIN 250 MG in IV NORMAL SALINE 250ML 250 ML IV SCH (23:00)
[2016-12-06] MEDS: VANCOMYCIN 1.5 GM in IV NORMAL SALINE 500ML BAG 500 ML IV SCH ×3 (00:15→22:49)
[2016-12-06] MEDS: QUEtiapine 25 MG TABLET. PO PRN (02:22)
[2016-12-06 03:10] VITALS: BP 115/64
[2016-12-06] MEDS: ACETAMINOPHEN 325 MG TABLET. PO SCH ×6 (06:05→23:09)
[2016-12-06 07:52] LABS: HCO3 ABG 30 mmol/L (21-28); PCO2 ABG 51 mmHg (35-46); PH ABG 7.38 (7.35-7.45); PO2 ABG 60 mmHg (65-108); SAT O2 ABG 90 % (92-99)
[2016-12-06 07:54] LABS: FIO2 ABG 21
[2016-12-06] MEDS: ASPIRIN CHEWABLE 81 MG TABLET. PO SCH (08:07)
[2016-12-06] MEDS: CYCLOBENZAPRINE 10 MG TABLET. PO SCH ×4 (08:07→21:02)
[2016-12-06] MEDS: POTASSIUM CHLORIDE 10 MEQ TABLET.ER. PO SCH (08:07)
[2016-12-06] MEDS: OXcarbazepine 300 MG TABLET PO SCH ×4 (08:07→21:02)
[2016-12-06] MEDS: CARVEDILOL 12.5 MG TABLET. PO SCH ×2 (08:08→17:01)
[2016-12-06] MEDS: FUROSEMIDE 20 MG TABLET PO SCH (08:08)
[2016-12-06] MEDS: CELECOXIB 200 MG CAPSULE. PO SCH (08:10)
[2016-12-06] MEDS: LOSARTAN POTASSIUM 50 MG TABLET. PO SCH (08:10)
[2016-12-06] MEDS: DOCUSATE SODIUM 100 MG CAPSULE. PO SCH (08:10)
[2016-12-06] MEDS: LINAGLIPTIN 5 MG TABLET PO SCH (08:10)
[2016-12-06] MEDS: amLODIPine BESYLATE 10 MG TABLET PO SCH (08:11)
[2016-12-06] MEDS: DULoxetine HCL 30 MG CAPSULE.DR PO SCH ×2 (08:11→21:01)
[2016-12-06] MEDS: INSULIN ASPART 300 UNITS/3 ML INSULN.PEN SQ SCH ×5 (08:21→17:07)
[2016-12-06] MEDS: POLYVINYL ALCOHOL 1.4% OPHTH SOLUTION 15ML BOTTLE. OU SCH ×3 (08:21→21:04)
[2016-12-06] MEDS: predniSONE 20 MG TABLET PO SCH (08:22)
[2016-12-06] MEDS: POLYETHYLENE GLYCOL 3350 17 GM PACKET. PO SCH ×2 (08:22→09:00)
[2016-12-06 08:24] VITALS: BP 129/54
--- NOTE | 2016-12-06 09:14 | PDOC ---
PULMONARY PROGRESS NOTES Subjective awake, but confused Vitals Vital Signs Date Time Temp Pulse Resp B/P (MAP) Pulse Ox O2 Delivery O2 Flow Rate FiO2 12/06/16 08:24 98.8 95 18 129/54 (79) 93 Room Air 98.8 General: No acute distress Lungs: Other (normal air entry) Cardiovascular: S1 Abdomen: Soft Extremities: No Edema Skin: Warm Labs Laboratory Tests Test 12/04/16 18:05 12/04/16 18:14 12/04/16 18:21 12/04/16 18:24 Glucose (Fingerstick) 98 mg/dL (70-99) White Blood Count 5.7 x10^3/uL (4.0-11.0) Red Blood Count 4.63 x10^6/uL (3.50-5.40) Hemoglobin 12.4 g/dL (12.0-15.5) Hematocrit 37.6 % (36.0-47.0) Mean Corpuscular Volume 81 fL (79-100) Mean Corpuscular Hemoglobin 27 pg (25-35) Mean Corpuscular Hemoglobin Concent 33 g/dL (31-37) Red Cell Distribution Width 16.8 % (11.5-14.5) Platelet Count 240 x10^3/uL (140-400) Neutrophils (%) (Auto) 67 % (31-73) Lymphocytes (%) (Auto) 17 % (24-48) Monocytes (%) (Auto) 11 % (0-9) Eosinophils (%) (Auto) 3 % (0-3) Basophils (%) (Auto) 1 % (0-3) Neutrophils # (Auto) 3.9 x10^3uL (1.8-7.7) Lymphocytes # (Auto) 1.0 x10^3/uL (1.0-4.8) Monocytes # (Auto) 0.7 x10^3/uL (0.0-1.1) Eosinophils # (Auto) 0.2 x10^3/uL (0.0-0.7) Basophils # (Auto) 0.0 x10^3/uL (0.0-0.2) Sodium Level 133 mmol/L (136-145) Potassium Level 3.9 mmol/L (3.5-5.1) Chloride Level 95 mmol/L (98-107) Carbon Dioxide Level 34 mmol/L (21-32) Anion Gap 4 (6-14) Blood Urea Nitrogen 19 mg/dL (7-20) Creatinine 1.0 mg/dL (0.6-1.0) Estimated GFR (Cockcroft-Gault) 65.6 BUN/Creatinine Ratio 19 (6-20) Glucose Level 79 mg/dL (70-99) Calcium Level 9.3 mg/dL (8.5-10.1) Total Bilirubin 0.2 mg/dL (0.2-1.0) Aspartate Amino Transf (AST/SGOT) 24 U/L (15-37) Alanine Aminotransferase (ALT/SGPT) 27 U/L (14-59) Alkaline Phosphatase 129 U/L (46-116) Troponin I Quantitative < 0.017 ng/mL (0.000-0.055) Total Protein 7.3 g/dL (6.4-8.2) Albumin 3.0 g/dL (3.4-5.0) Albumin/Globulin Ratio 0.7 (1.0-1.7) O2 Saturation 92 % (92-99) Arterial Blood pH 7.31 (7.35-7.45) Arterial Blood pCO2 at Patient Temp 60 mmHg (35-46) Arterial Blood pO2 at Patient Temp 68 mmHg (65-108) Arterial Blood HCO3 30 mmol/L (21-28) Arterial Blood Base Excess 2 mmol/L (-3-3) FiO2 21 Urine Collection Type U cath Urine Color Yellow Urine Clarity Clear Urine pH 7.0 Urine Specific [place] 1.010 Urine Protein Negative mg/dL (NEG-TRACE) Urine Glucose (UA) Negative mg/dL (NEG) Urine Ketones (Stick) Negative mg/dL (NEG) Urine Blood Negative (NEG) Urine Nitrite Negative (NEG) Urine Bilirubin Negative (NEG) Urine Urobilinogen Dipstick 0.2 mg/dL (0.2 mg/dL) Urine Leukocyte Esterase Trace (NEG) Urine RBC Occ /HPF (0-2) Urine WBC Occ /HPF (0-4) Urine Renal Epithelial Cells Few /LPF Urine Bacteria 0 /HPF (0-FEW) Urine Hyaline Casts Few /HPF Urine Mucus Slight /LPF Test 12/04/16 19:06 12/04/16 19:42 12/04/16 20:16 12/04/16 21:10 Glucose (Fingerstick) 42 mg/dL (70-99) 115 mg/dL (70-99) 114 mg/dL (70-99) 94 mg/dL (70-99) Test 12/04/16 22:20 12/04/16 23:20 12/05/16 01:01 12/05/16 02:39 Glucose (Fingerstick) 109 mg/dL (70-99) 129 mg/dL (70-99) 151 mg/dL (70-99) Nasal Screen MRSA (PCR) Positive (Negative) Test 12/05/16 05:12 12/05/16 05:49 12/05/16 07:40 12/05/16 09:35 Glucose (Fingerstick) 228 mg/dL (70-99) 307 mg/dL (70-99) 301 mg/dL (70-99) White Blood Count 5.6 x10^3/uL (4.0-11.0) Red Blood Count 4.78 x10^6/uL (3.50-5.40) Hemoglobin 12.9 g/dL (12.0-15.5) Hematocrit 38.4 % (36.0-47.0) Mean Corpuscular Volume 80 fL (79-100) Mean Corpuscular Hemoglobin 27 pg (25-35) Mean Corpuscular Hemoglobin Concent 34 g/dL (31-37) Red Cell Distribution Width 17.0 % (11.5-14.5) Platelet Count 264 x10^3/uL (140-400) Neutrophils (%) (Auto) 93 % (31-73) Lymphocytes (%) (Auto) 6 % (24-48) Monocytes (%) (Auto) 1 % (0-9) Eosinophils (%) (Auto) 0 % (0-3) Basophils (%) (Auto) 0 % (0-3) Neutrophils # (Auto) 5.3 x10^3uL (1.8-7.7) Lymphocytes # (Auto) 0.3 x10^3/uL (1.0-4.8) Monocytes # (Auto) 0.0 x10^3/uL (0.0-1.1) Eosinophils # (Auto) 0.0 x10^3/uL (0.0-0.7) Basophils # (Auto) 0.0 x10^3/uL (0.0-0.2) Segmented Neutrophils % 94 % (35-66) Lymphocytes % 5 % (24-48) Monocytes % 1 % (0-10) Platelet Estimate Adequate (ADEQUATE) Sodium Level 129 mmol/L (136-145) Potassium Level 4.4 mmol/L (3.5-5.1) Chloride Level 91 mmol/L (98-107) Carbon Dioxide Level 27 mmol/L (21-32) Anion Gap 11 (6-14) Blood Urea Nitrogen 15 mg/dL (7-20) Creatinine 1.0 mg/dL (0.6-1.0) Estimated GFR (Cockcroft-Gault) 65.6 Glucose Level 258 mg/dL (70-99) Calcium Level 9.3 mg/dL (8.5-10.1) Test 12/05/16 10:39 12/05/16 12:04 12/05/16 16:22 12/05/16 21:08 Glucose (Fingerstick) 287 mg/dL (70-99) 309 mg/dL (70-99) 331 mg/dL (70-99) 392 mg/dL (70-99) Test 12/06/16 02:56 12/06/16 08:00 12/06/16 08:05 Glucose (Fingerstick) 295 mg/dL (70-99) 258 mg/dL (70-99) O2 Saturation 90 % (92-99) Arterial Blood pH 7.38 (7.35-7.45) Arterial Blood pCO2 at Patient Temp 51 mmHg (35-46) Arterial Blood pO2 at Patient Temp 60 mmHg (65-108) Arterial Blood HCO3 30 mmol/L (21-28) Arterial Blood Base Excess 3 mmol/L (-3-3) FiO2 21 Laboratory Tests Test 12/05/16 09:35 12/05/16 10:39 12/05/16 12:04 12/05/16 16:22 Glucose (Fingerstick) 301 mg/dL (70-99) 287 mg/dL (70-99) 309 mg/dL (70-99) 331 mg/dL (70-99) Test 12/05/16 21:08 12/06/16 02:56 12/06/16 08:00 12/06/16 08:05 Glucose (Fingerstick) 392 mg/dL (70-99) 295 mg/dL (70-99) 258 mg/dL (70-99) O2 Saturation 90 % (92-99) Arterial Blood pH 7.38 (7.35-7.45) Arterial Blood pCO2 at Patient Temp 51 mmHg (35-46) Arterial Blood pO2 at Patient Temp 60 mmHg (65-108) Arterial Blood HCO3 30 mmol/L (21-28) Arterial Blood Base Excess 3 mmol/L (-3-3) FiO2 21 Medications Active Scripts Medications Dose Route/Sig Max Daily Dose Days Date Category Novolog Flexpen (Insulin Aspart) 100 Unit/1 Ml Insuln.pen 15 Unit SQ TID 12/05/16 Reported Novolog Flexpen (Insulin Aspart) 100 Unit/1 Ml Insuln.pen 1 Unit SQ 12/05/16 Reported Voltaren (Diclofenac Sodium) 100 Gm Gel..gram. 1 Gm TP TID PRN 12/05/16 Reported Vitamin D2 (Ergocalciferol (Vitamin D2)) 50,000 Unit Capsule 1 Cap PO WEEKLY 12/05/16 Reported Trileptal (Oxcarbazepine) 300 Mg Tablet 300 Mg PO TID 12/05/16 Reported Tradjenta (Linagliptin) 5 Mg Tablet 1 Tab PO DAILY 12/05/16 Reported Seroquel (Quetiapine Fumarate) 25 Mg Tablet 1 Tab PO Q6HRS PRN 12/05/16 Reported Potassium Chloride 10 Meq Capsule.er 10 Meq PO DAILY 12/05/16 Reported Norvasc (Amlodipine Besylate) 10 Mg Tablet 10 Mg PO DAILY 12/05/16 Reported Alum-Mag Hydroxide-Simeth Liq (Mag Hydrox/Al Hydrox/Simeth) 360 Ml Oral.susp 360 Ml PO Q4HRS PRN 12/05/16 Reported Miralax (Polyethylene Glycol 3350) 17 Gm Powd.pack 1 Packet PO DAILY 12/05/16 Reported Milk Of Magnesia (Magnesium Hydroxide) 2,400 Mg/10 Ml Oral.susp 2,400 Mg PO DAILY PRN 12/05/16 Reported Meclizine Hcl 25 Mg Tablet 25 Mg PO Q8HRS PRN 12/05/16 Reported Hydrocodone-Apap 5-325 (Hydrocodone Bit/Acetaminophen) 1 Each Tablet 1 Tab PO PRN Q8HRS PRN 12/05/16 Reported Levemir (Insulin Detemir) 100 Unit/1 Ml Vial 20 Unit SQ BID 12/05/16 Reported Lasix (Furosemide) 20 Mg Tablet 3 Tab PO DAILY 12/05/16 Reported Cyclobenzaprine Hcl 10 Mg Tablet 1 Tab PO TID 12/05/16 Reported Fleet Enema (Na Phos,M-B/Na Phos,Di-Ba) 133 Ml Enema 133 Ml RC DAILY PRN 12/05/16 Reported Dulcolax (Bisacodyl) 10 Mg Supp.rect 10 Mg RC PRN DAILY PRN 12/05/16 Reported Cymbalta (Duloxetine Hcl) 60 Mg Capsule.dr 1 Cap PO BID 12/05/16 Reported Cozaar (Losartan Potassium) 100 Mg Tablet 100 Mg PO DAILY 12/05/16 Reported Coreg (Carvedilol) 12.5 Mg Tablet 1 Tab PO BID 12/05/16 Reported Colace (Docusate Sodium) 100 Mg Capsule 100 Mg PO DAILY 12/05/16 Reported Celebrex (Celecoxib) 200 Mg Capsule 1 Cap PO DAILY 12/05/16 Reported Aspirin 81 Mg Tab.chew 1 Tab PO DAILY 12/05/16 Reported Artificial Tears Drops (Dextran 70/Hypromellose/Pf) 1 Each Droperette 1 Each OP TID 12/05/16 Reported Acetaminophen 325 Mg Tablet 650 Mg PO Q6HRS 12/05/16 Reported Impression . ACUTE/CHRONIC HYPERCAPNIC RESP FAILURE/ COMPENSATED NOW BY ABG POSSIBLE PNEUMONIA MET ENCEPHALOPATHY HYPOGLYCEMIA ABNORMAL CXR WTH BASAL INFILTRATES/CONGESTION NORMAL EF ON RECENT ECHO Plan . NO NEED FOR BIPAP ABG COMPENSATED MAY BENEFIT FROM SLEEP STUDY OUTPT EMPIRIC ANTIBX FOLLOW CLINICAL COURSE AND MAKE FURTHER RECOMMENDATION AVOID SEDATIVES REBECCA DE LA O MD Dec 06, 2016 09:14
[2016-12-06 10:59] VITALS: BP 129/60
[2016-12-06] MEDS: ENOXAPARIN 40 MG/0.4 ML SYRINGE. SQ SCH (11:00)
[2016-12-06] MEDS ORDERED: HALOPERIDOL LACTATE 5 MG/ML VIAL. IVP PRN (11:15)
--- NOTE | 2016-12-06 11:48 | PDOC2 ---
NEUROLOGY CONSULT Date of Admission Date of Admission DATE: 12/06/16 TIME: 11:41 Reason for Consult Reason for Consult: Altered mental status Referring Physician Referring Physician: Dr. Sands Source Source: Chart review, Patient History of Present Illness History of Present Illness The patient is a 76-year-old right-handed female admitted 2 days ago with lethargy, confusion, hypothermia, severe hypoglycemia, and respiratory failure. She was initially in the intensive care unit but transferred to the floor yesterday. Last night she was combative and confused. I saw her for metabolic encephalopathy of months ago. She denies any history of stroke, seizure, head injury, or dementia, but is not a reliable historian right now. She has been wheelchair-bound at the retirement for a lease for years. Past Medical History Cardiovascular: CHF, HTN CENTRAL NERVOUS SYSTEM: Other (Metabolic encephalopathy) GI: Constipation Psych: Anxiety, Depression Musculoskeletal: Osteoarthritis Endocrine: Diabetes, Osteoporosis Past Surgical History Past Surgical History: No pertinent history Family History Family History: No pertinent hx Social History Social History custodial resident, no tobacco or alcohol Current Medications Current Medications Current Medications Ammonia (Aromatic Spirit) (Amoply) 1 each STK-MED ONCE .ROUTE ; Start 12/04/16 at 18:02; Stop 12/04/16 at 18:03; Status DC Dextrose (Dextrose 50%-Water Syringe) 25 gm STK-MED ONCE IV ; Start 12/04/16 at 18:04; Stop 12/04/16 at 18:05; Status DC Dextrose/Sodium Chloride 1,000 ml @ 150 mls/hr 1X ONCE IV Last administered on 12/04/16 19:22; Start 12/04/16 at 19:15; Stop 12/05/16 at 01:54; Status DC Dextrose (Dextrose 50%-Water Syringe) 25 gm 1X ONCE IV Last administered on 19:09; Start 12/04/16 at 19:15; Stop 12/04/16 at 19:16; Status DC Dextrose (Dextrose 50%-Water Syringe) 25 gm STK-MED ONCE IV ; Start 12/04/16 at 19:15; Stop 12/04/16 at 19:16; Status DC Lorazepam (Ativan) 0.5 mg 1X ONCE IV Last administered on 12/04/16 21:23; Start 12/04/16 at 21:00; Stop 12/04/16 at 21:01; Status DC Ondansetron HCl (Zofran) 4 mg PRN Q8HRS PRN IV NAUSEA/VOMITING; Start 12/04/16 at 21:00; Stop 12/05/16 at 08:44; Status DC Hydrocortisone Sodium Succinate (Solu-CORTEF) 100 mg 1X ONCE IV ; Start at 22:30; Stop 12/04/16 at 22:30; Status DC Hydrocortisone Sodium Succinate (Solu-CORTEF) 100 mg Q8HRS IV ; Start 12/05/16 at 06:00; Stop 12/05/16 at 06:00; Status DC Methylprednisolone Sodium Succinate (SOLU-Medrol 125MG VIAL) 125 mg 1X ONCE IV Last administered on 12/04/16 23:30; Start 12/04/16 at 22:30; Stop 12/04/16 at 22:31; Status DC Prednisone (Prednisone) 40 mg DAILY PO Last administered on 12/06/16 08:22; Start 12/05/16 at 09:00 Albuterol/ Ipratropium (Duoneb) 3 ml Q4HRS W/A NEB Last administered on 11:37; Start 12/05/16 at 06:00; Stop 12/05/16 at 12:47; Status DC Budesonide (Pulmicort) 0.5 mg RTBID NEB Last administered on 12/05/16 07:43; Start 12/05/16 at 08:00; Stop 12/05/16 at 12:47; Status DC Budesonide (Pulmicort) 0.5 mg 1X ONCE NEB ; Start 12/04/16 at 23:00; Stop 12/04 at 23:01; Status DC Vancomycin HCl (Vanco Per Pharmacy) 1 each PRN DAILY PRN MC SEE COMMENTS Last administered on 12/05/16 01:54; Start 12/04/16 at 22:30 Azithromycin 500 mg/Sodium Chloride 250 ml @ 250 mls/hr 1X ONCE IV Last administered on 12/04/16 23:27; Start 12/04/16 at 23:00; Stop 12/04/16 at 23:59 ; Status DC Azithromycin 250 mg/Sodium Chloride 250 ml @ 250 mls/hr Q24H IV Last administered on 12/05/16 22:14; Start 12/05/16 at 23:00 Saliva Substitute (Biotene Moisturizing Mouth) 2 spray PRN Q15MIN PRN PO DRY MOUTH; Start 12/04/16 at 22:30 Artificial Tears (Artificial Tears) 1 drop PRN Q15MIN PRN OU DRY EYE; Start at 22:30 Vancomycin HCl 2 gm/Sodium Chloride 500 ml @ 250 mls/hr 1X ONCE IV Last administered on 12/04/16 23:30; Start 12/04/16 at 23:00; Stop 12/05/16 at 00:59 ; Status DC Vancomycin HCl 1.5 gm/Sodium Chloride 500 ml @ 250 mls/hr Q12H IV Last administered on 12/06/16 11:38; Start 12/05/16 at 11:00 Vancomycin HCl 1 each 1X ONCE MC ; Start 12/06/16 at 10:30; Stop 12/06/16 at 10 :31; Status DC Ondansetron HCl (Zofran) 4 mg PRN Q6HRS PRN IV NAUSEA/VOMITING; Start 12/05/16 at 08:40; Stop 12/06/16 at 08:39; Status DC Labetalol HCl (Normodyne) 10 mg PRN Q2HR PRN IVP HYPERTENSION, SEE COMMENTS Last administered on 12/05/16 10:14; Start 12/05/16 at 08:45 Acetaminophen (Tylenol) 500 mg PRN Q6HRS PRN PO MILD PAIN / TEMP; Start at 08:45 Acetaminophen (Tylenol) 650 mg Q6HRS PO Last administered on 12/06/16 06:05; Start 12/05/16 at 12:00 Amlodipine Besylate (Norvasc) 10 mg DAILY PO Last administered on 12/06/16 08: 11; Start 12/05/16 at 09:00 Aspirin (Children'S Aspirin) 81 mg DAILYWBKFT PO Last administered on 08:07; Start 12/05/16 at 09:00 Bisacodyl (Dulcolax Supp) 10 mg PRN DAILY PRN RC CONSTIPATION; Start 12/05/16 at 08:45 Carvedilol (Coreg) 12.5 mg BIDWMEALS PO Last administered on 12/06/16 08:08; Start 12/05/16 at 09:00 Celecoxib (CeleBREX) 200 mg DAILY PO Last administered on 12/06/16 08:10; Start 12/05/16 at 09:00 Cyclobenzaprine HCl (Flexeril) 10 mg TID PO Last administered on 12/06/16 08: 07; Start 12/05/16 at 09:00 Diclofenac Sodium (Voltaren) 1 fabian TID PRN TP PAIN; Start 12/05/16 at 08:45 Docusate Sodium (Colace) 100 mg DAILY PO Last administered on 12/06/16 08:10; Start 12/05/16 at 09:00 Ergocalciferol (Vitamin D2) 50,000 unit WEEKLY PO ; Start 12/09/16 at 09:00 Furosemide (Lasix) 60 mg DAILY PO Last administered on 12/06/16 08:08; Start 12/05/16 at 09:00 Acetaminophen/ Hydrocodone Bitart (Lortab 5/325) 1 tab PRN Q8HRS PRN PO PAIN Last administered on 12/05/16 22:40; Start 12/05/16 at 08:45 Linagliptin (Tradjenta) 5 mg DAILY PO Last administered on 12/06/16 08:10; Start 12/05/16 at 09:00 Sodium Monofluorophosphate (Fleet Adult) 133 ml DAILY PRN RC CONSTIPATION; Start 12/05/16 at 08:45 Oxcarbazepine (Trileptal) 300 mg TID PO Last administered on 12/06/16 08:07; Start 12/05/16 at 09:00 Polyethylene Glycol (miraLAX PACKET) 17 gm DAILY PO ; Start 12/05/16 at 09:00 Quetiapine Fumarate (SEROquel) 25 mg Q6HRS PRN PO AGITATION Last administered on 12/06/16 02:22; Start 12/05/16 at 08:45 Artificial Tears (Artificial Tears) 1 drop TID OU Last administered on 08:21; Start 12/05/16 at 09:00 Duloxetine HCl (Cymbalta) 60 mg BID PO Last administered on 12/06/16 08:11; Start 12/05/16 at 09:00 Losartan Potassium (Cozaar) 100 mg DAILY PO Last administered on 12/06/16 08: 10; Start 12/05/16 at 09:00 Al Hydroxide/Mg Hydroxide (Mylanta Plus Xs) 30 ml PRN Q4HRS PRN PO HEARTBURN / GAS; Start 12/05/16 at 09:00 Magnesium Hydroxide (Milk Of Magnesia) 2,400 mg PRN DAILY PRN PO CONSTIPATION; Start 12/05/16 at 09:00 Meclizine HCl (Antivert) 25 mg PRN Q8HRS PRN PO DIZZINESS; Start 12/05/16 at 09 :00 Potassium Chloride (Klor-Con) 10 meq DAILYWBKFT PO Last administered on 08:07; Start 12/05/16 at 09:00 Insulin Aspart (NovoLOG) 0-9 UNITS TIDWMEALS SQ Last administered on 12/06/16 08:21; Start 12/05/16 at 12:00 Dextrose (Dextrose 50%-Water Syringe) 12.5 gm PRN Q15MIN PRN IV SEE COMMENTS; Start 12/05/16 at 08:45 Enoxaparin Sodium (Lovenox 40mg Syringe) 40 mg Q24H SQ Last administered on 10:55; Start 12/05/16 at 11:00 Albuterol/ Ipratropium (Duoneb) 3 ml PRN Q4HRS PRN NEB SHORTNESS OF BREATH; Start 12/06/16 at 10:00 Insulin Detemir (Levemir) 10 units 1X ONCE SQ Last administered on 12/05/16 22:14; Start 12/05/16 at 22:00; Stop 12/05/16 at 22:01; Status DC Insulin Aspart (NovoLOG) 15 units 1X ONCE SQ Last administered on 12/05/16 22 :13; Start 12/05/16 at 22:00; Stop 12/05/16 at 22:01; Status DC Insulin Detemir (Levemir) 20 units QHS SQ ; Start 12/06/16 at 21:00 Insulin Aspart (NovoLOG) 8 units TIDAC SQ ; Start 12/06/16 at 11:30 Haloperidol Lactate (Haldol) 1 mg PRN Q6HRS PRN IVP AGITATION; Start 12/06/16 at 11:15 Active Scripts Active Reported Novolog Flexpen (Insulin Aspart) 100 Unit/1 Ml Insuln.pen 15 Unit SQ TID Novolog Flexpen (Insulin Aspart) 100 Unit/1 Ml Insuln.pen 1 Unit SQ Voltaren (Diclofenac Sodium) 100 Gm Gel..gram. 1 Gm TP TID PRN Vitamin D2 (Ergocalciferol (Vitamin D2)) 50,000 Unit Capsule 1 Cap PO WEEKLY Trileptal (Oxcarbazepine) 300 Mg Tablet 300 Mg PO TID Tradjenta (Linagliptin) 5 Mg Tablet 1 Tab PO DAILY Seroquel (Quetiapine Fumarate) 25 Mg Tablet 1 Tab PO Q6HRS PRN Potassium Chloride 10 Meq Capsule.er 10 Meq PO DAILY Norvasc (Amlodipine Besylate) 10 Mg Tablet 10 Mg PO DAILY Alum-Mag Hydroxide-Simeth Liq (Mag Hydrox/Al Hydrox/Simeth) 360 Ml Oral.susp 360 Ml PO Q4HRS PRN Miralax (Polyethylene Glycol 3350) 17 Gm Powd.pack 1 Packet PO DAILY Milk Of Magnesia (Magnesium Hydroxide) 2,400 Mg/10 Ml Oral.susp 2,400 Mg PO DAILY PRN Meclizine Hcl 25 Mg Tablet 25 Mg PO Q8HRS PRN Hydrocodone-Apap 5-325 (Hydrocodone Bit/Acetaminophen) 1 Each Tablet 1 Tab PO PRN Q8HRS PRN Levemir (Insulin Detemir) 100 Unit/1 Ml Vial 20 Unit SQ BID Lasix (Furosemide) 20 Mg Tablet 3 Tab PO DAILY Cyclobenzaprine Hcl 10 Mg Tablet 1 Tab PO TID Fleet Enema (Na Phos,M-B/Na Phos,Di-Ba) 133 Ml Enema 133 Ml RC DAILY PRN Dulcolax (Bisacodyl) 10 Mg Supp.rect 10 Mg RC PRN DAILY PRN Cymbalta (Duloxetine Hcl) 60 Mg Capsule.dr 1 Cap PO BID Cozaar (Losartan Potassium) 100 Mg Tablet 100 Mg PO DAILY Coreg (Carvedilol) 12.5 Mg Tablet 1 Tab PO BID Colace (Docusate Sodium) 100 Mg Capsule 100 Mg PO DAILY Celebrex (Celecoxib) 200 Mg Capsule 1 Cap PO DAILY Aspirin 81 Mg Tab.chew 1 Tab PO DAILY Artificial Tears Drops (Dextran 70/Hypromellose/Pf) 1 Each Droperette 1 Each OP TID Acetaminophen 325 Mg Tablet 650 Mg PO Q6HRS Allergies Allergies: Coded Allergies: I S O L A T I O N *CONTACT* (Verified Allergy, Unknown, 10/24/16) mrsa No Known Medication Allergies (Verified Allergy, Unknown, 10/24/16) ROS Review of System Not reliably obtained Physical Exam Physical Examination PHYSICAL EXAMINATION: Vital signs: see above. General appearance is normal and in no acute distress. HEENT: Normocephalic and nontraumatic. Eyes, nose, ears, and throat are unremarkable. Neck is supple. No lymphadenopathy. No bruits are heard over the carotid artery. No crepitus. NEUROLOGIC: As I come up to the room she is yelling out wanting someone to take her to the bathroom even though she was just given a bedpan. Once I enter the room she stops yelling. She knows that she is in the hospital but does not know the date. Cranial nerve testing shows full visual sarkar to threat, equally reactive pupils, intact extraocular movements, and there is no facial asymmetry. Reflexes are 1+ with silent plant responses. Leg strength is 2/5, arm strength is 4/5. She does not cooperate with testing of cerebellar signs and sensation. Vitals VITALS Vital Signs Date Time Temp Pulse Resp B/P (MAP) Pulse Ox O2 Delivery O2 Flow Rate FiO2 12/06/16 10:59 98.6 77 20 129/60 (83) 96 Room Air 98.6 Labs Labs Laboratory Tests Test 12/04/16 18:05 12/04/16 18:14 12/04/16 18:21 12/04/16 18:24 Glucose (Fingerstick) 98 mg/dL (70-99) White Blood Count 5.7 x10^3/uL (4.0-11.0) Red Blood Count 4.63 x10^6/uL (3.50-5.40) Hemoglobin 12.4 g/dL (12.0-15.5) Hematocrit 37.6 % (36.0-47.0) Mean Corpuscular Volume 81 fL (79-100) Mean Corpuscular Hemoglobin 27 pg (25-35) Mean Corpuscular Hemoglobin Concent 33 g/dL (31-37) Red Cell Distribution Width 16.8 % (11.5-14.5) Platelet Count 240 x10^3/uL (140-400) Neutrophils (%) (Auto) 67 % (31-73) Lymphocytes (%) (Auto) 17 % (24-48) Monocytes (%) (Auto) 11 % (0-9) Eosinophils (%) (Auto) 3 % (0-3) Basophils (%) (Auto) 1 % (0-3) Neutrophils # (Auto) 3.9 x10^3uL (1.8-7.7) Lymphocytes # (Auto) 1.0 x10^3/uL (1.0-4.8) Monocytes # (Auto) 0.7 x10^3/uL (0.0-1.1) Eosinophils # (Auto) 0.2 x10^3/uL (0.0-0.7) Basophils # (Auto) 0.0 x10^3/uL (0.0-0.2) Sodium Level 133 mmol/L (136-145) Potassium Level 3.9 mmol/L (3.5-5.1) Chloride Level 95 mmol/L (98-107) Carbon Dioxide Level 34 mmol/L (21-32) Anion Gap 4 (6-14) Blood Urea Nitrogen 19 mg/dL (7-20) Creatinine 1.0 mg/dL (0.6-1.0) Estimated GFR (Cockcroft-Gault) 65.6 BUN/Creatinine Ratio 19 (6-20) Glucose Level 79 mg/dL (70-99) Calcium Level 9.3 mg/dL (8.5-10.1) Total Bilirubin 0.2 mg/dL (0.2-1.0) Aspartate Amino Transf (AST/SGOT) 24 U/L (15-37) Alanine Aminotransferase (ALT/SGPT) 27 U/L (14-59) Alkaline Phosphatase 129 U/L (46-116) Troponin I Quantitative < 0.017 ng/mL (0.000-0.055) Total Protein 7.3 g/dL (6.4-8.2) Albumin 3.0 g/dL (3.4-5.0) Albumin/Globulin Ratio 0.7 (1.0-1.7) O2 Saturation 92 % (92-99) Arterial Blood pH 7.31 (7.35-7.45) Arterial Blood pCO2 at Patient Temp 60 mmHg (35-46) Arterial Blood pO2 at Patient Temp 68 mmHg (65-108) Arterial Blood HCO3 30 mmol/L (21-28) Arterial Blood Base Excess 2 mmol/L (-3-3) FiO2 21 Urine Collection Type U cath Urine Color Yellow Urine Clarity Clear Urine pH 7.0 Urine Specific [place] 1.010 Urine Protein Negative mg/dL (NEG-TRACE) Urine Glucose (UA) Negative mg/dL (NEG) Urine Ketones (Stick) Negative mg/dL (NEG) Urine Blood Negative (NEG) Urine Nitrite Negative (NEG) Urine Bilirubin Negative (NEG) Urine Urobilinogen Dipstick 0.2 mg/dL (0.2 mg/dL) Urine Leukocyte Esterase Trace (NEG) Urine RBC Occ /HPF (0-2) Urine WBC Occ /HPF (0-4) Urine Renal Epithelial Cells Few /LPF Urine Bacteria 0 /HPF (0-FEW) Urine Hyaline Casts Few /HPF Urine Mucus Slight /LPF Test 12/04/16 19:06 12/04/16 19:42 12/04/16 20:16 12/04/16 21:10 Glucose (Fingerstick) 42 mg/dL (70-99) 115 mg/dL (70-99) 114 mg/dL (70-99) 94 mg/dL (70-99) Test 12/04/16 22:20 12/04/16 23:20 12/05/16 01:01 12/05/16 02:39 Glucose (Fingerstick) 109 mg/dL (70-99) 129 mg/dL (70-99) 151 mg/dL (70-99) Nasal Screen MRSA (PCR) Positive (Negative) Test 12/05/16 05:12 12/05/16 05:49 12/05/16 07:40 12/05/16 09:35 Glucose (Fingerstick) 228 mg/dL (70-99) 307 mg/dL (70-99) 301 mg/dL (70-99) White Blood Count 5.6 x10^3/uL (4.0-11.0) Red Blood Count 4.78 x10^6/uL (3.50-5.40) Hemoglobin 12.9 g/dL (12.0-15.5) Hematocrit 38.4 % (36.0-47.0) Mean Corpuscular Volume 80 fL (79-100) Mean Corpuscular Hemoglobin 27 pg (25-35) Mean Corpuscular Hemoglobin Concent 34 g/dL (31-37) Red Cell Distribution Width 17.0 % (11.5-14.5) Platelet Count 264 x10^3/uL (140-400) Neutrophils (%) (Auto) 93 % (31-73) Lymphocytes (%) (Auto) 6 % (24-48) Monocytes (%) (Auto) 1 % (0-9) Eosinophils (%) (Auto) 0 % (0-3) Basophils (%) (Auto) 0 % (0-3) Neutrophils # (Auto) 5.3 x10^3uL (1.8-7.7) Lymphocytes # (Auto) 0.3 x10^3/uL (1.0-4.8) Monocytes # (Auto) 0.0 x10^3/uL (0.0-1.1) Eosinophils # (Auto) 0.0 x10^3/uL (0.0-0.7) Basophils # (Auto) 0.0 x10^3/uL (0.0-0.2) Segmented Neutrophils % 94 % (35-66) Lymphocytes % 5 % (24-48) Monocytes % 1 % (0-10) Platelet Estimate Adequate (ADEQUATE) Sodium Level 129 mmol/L (136-145) Potassium Level 4.4 mmol/L (3.5-5.1) Chloride Level 91 mmol/L (98-107) Carbon Dioxide Level 27 mmol/L (21-32) Anion Gap 11 (6-14) Blood Urea Nitrogen 15 mg/dL (7-20) Creatinine 1.0 mg/dL (0.6-1.0) Estimated GFR (Cockcroft-Gault) 65.6 Glucose Level 258 mg/dL (70-99) Calcium Level 9.3 mg/dL (8.5-10.1) Test 12/05/16 10:39 12/05/16 12:04 12/05/16 16:22 12/05/16 21:08 Glucose (Fingerstick) 287 mg/dL (70-99) 309 mg/dL (70-99) 331 mg/dL (70-99) 392 mg/dL (70-99) Test 12/06/16 02:56 12/06/16 08:00 12/06/16 08:05 12/06/16 10:40 Glucose (Fingerstick) 295 mg/dL (70-99) 258 mg/dL (70-99) O2 Saturation 90 % (92-99) Arterial Blood pH 7.38 (7.35-7.45) Arterial Blood pCO2 at Patient Temp 51 mmHg (35-46) Arterial Blood pO2 at Patient Temp 60 mmHg (65-108) Arterial Blood HCO3 30 mmol/L (21-28) Arterial Blood Base Excess 3 mmol/L (-3-3) FiO2 21 Vancomycin Level Trough 18.0 mcg/mL (10.0-20.0) Vancomycin Last Dose Date 12/05/16 Vancomycin Last Dose Time 2300 Test 12/06/16 10:47 Glucose (Fingerstick) 291 mg/dL (70-99) Laboratory Tests Test 12/05/16 12:04 12/05/16 16:22 12/05/16 21:08 12/06/16 02:56 Glucose (Fingerstick) 309 mg/dL (70-99) 331 mg/dL (70-99) 392 mg/dL (70-99) 295 mg/dL (70-99) Test 12/06/16 08:00 12/06/16 08:05 12/06/16 10:40 12/06/16 10:47 O2 Saturation 90 % (92-99) Arterial Blood pH 7.38 (7.35-7.45) Arterial Blood pCO2 at Patient Temp 51 mmHg (35-46) Arterial Blood pO2 at Patient Temp 60 mmHg (65-108) Arterial Blood HCO3 30 mmol/L (21-28) Arterial Blood Base Excess 3 mmol/L (-3-3) FiO2 21 Glucose (Fingerstick) 258 mg/dL (70-99) 291 mg/dL (70-99) Vancomycin Level Trough 18.0 mcg/mL (10.0-20.0) Vancomycin Last Dose Date 12/05/16 Vancomycin Last Dose Time [address] head, 12/04: Impression: No acute intracranial process. Please note that CT can be relatively insensitive to acute ischemic infarction for up to 24 hours after symptom onset. 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 TSH was normal last month Supportive care Thank you for letting me help with the patient's care. CAMERON OLIVEIRA MD Dec 06, 2016 11:48
[2016-12-06 11:52] LABS: FOLATE 9.63 ng/ml (3.2-20.0)
--- NOTE | 2016-12-06 12:52 | PDOC ---
PROGRESS NOTES Chief Complaint Chief Complaint Acute metabolic encephalopathy POA, in the background of hypoglycemia, hypothermia, baseline dementia, likely psych issues too hypoglycemia in Dm2, insulin req. acute acidosis with hypercarbia POA acute on chronic hypercarbia, Htn, poor control mod malnutrition Hypothermia, resolved Atelectasis possible PNA possible baseline psyche issues with bipolar disorder plan; neuro, pulm consulted cont han, franci ebenezer, add levaquin add levemir 20u qhs, aspart 8u tid, assi ada diet 1 to 1 ob if needed on prednisone 40mg daily with pulm PTOT dvt ppx haldol prn, on seroquel as home meds cannot dc since this is not close to pt's mental baseline History of Present Illness History of Present Illness very agitated from time to time, not communicateble, yelling" getting the things around me" eats well, hyperglycemia fever last night 100.8 Vitals Vitals Vital Signs Date Time Temp Pulse Resp B/P (MAP) Pulse Ox O2 Delivery O2 Flow Rate FiO2 12/06/16 10:59 98.6 77 20 129/60 (83) 96 Room Air 98.6 Physical Exam Physical Exam not communicateble, not answer 90% of the questions agitated General: Alert Heart: Regular rate, Normal S1, Normal S2 Lungs: Other (normal air entry) Abdomen: Normal bowel sounds, Soft Extremities: No clubbing, No cyanosis Skin: No rashes, No significant lesion Labs LABS Laboratory Tests Test 12/05/16 16:22 12/05/16 21:08 12/06/16 02:56 12/06/16 08:00 Glucose (Fingerstick) 331 mg/dL (70-99) 392 mg/dL (70-99) 295 mg/dL (70-99) O2 Saturation 90 % (92-99) Arterial Blood pH 7.38 (7.35-7.45) Arterial Blood pCO2 at Patient Temp 51 mmHg (35-46) Arterial Blood pO2 at Patient Temp 60 mmHg (65-108) Arterial Blood HCO3 30 mmol/L (21-28) Arterial Blood Base Excess 3 mmol/L (-3-3) FiO2 21 Test 12/06/16 08:05 12/06/16 10:40 12/06/16 10:47 Glucose (Fingerstick) 258 mg/dL (70-99) 291 mg/dL (70-99) Vitamin B12 Level 1264 pg/mL (247-911) Serum Folate 9.63 ng/ml (3.2-20.0) Vancomycin Level Trough 18.0 mcg/mL (10.0-20.0) Vancomycin Last Dose Date 12/05/16 Vancomycin Last Dose Time 2300 Review of Systems Review of Systems no chills, sob or chest pain Assessment and Plan Assessmemt and Plan Problems Medical Problems: (1) Altered mental status Status: Acute Problems: Comment Review of Relevant I have reviewed the following items halle (where applicable) has been applied. Labs Laboratory Tests Test 12/04/16 18:05 12/04/16 18:14 12/04/16 18:21 12/04/16 18:24 Glucose (Fingerstick) 98 mg/dL (70-99) White Blood Count 5.7 x10^3/uL (4.0-11.0) Red Blood Count 4.63 x10^6/uL (3.50-5.40) Hemoglobin 12.4 g/dL (12.0-15.5) Hematocrit 37.6 % (36.0-47.0) Mean Corpuscular Volume 81 fL (79-100) Mean Corpuscular Hemoglobin 27 pg (25-35) Mean Corpuscular Hemoglobin Concent 33 g/dL (31-37) Red Cell Distribution Width 16.8 % (11.5-14.5) Platelet Count 240 x10^3/uL (140-400) Neutrophils (%) (Auto) 67 % (31-73) Lymphocytes (%) (Auto) 17 % (24-48) Monocytes (%) (Auto) 11 % (0-9) Eosinophils (%) (Auto) 3 % (0-3) Basophils (%) (Auto) 1 % (0-3) Neutrophils # (Auto) 3.9 x10^3uL (1.8-7.7) Lymphocytes # (Auto) 1.0 x10^3/uL (1.0-4.8) Monocytes # (Auto) 0.7 x10^3/uL (0.0-1.1) Eosinophils # (Auto) 0.2 x10^3/uL (0.0-0.7) Basophils # (Auto) 0.0 x10^3/uL (0.0-0.2) Sodium Level 133 mmol/L (136-145) Potassium Level 3.9 mmol/L (3.5-5.1) Chloride Level 95 mmol/L (98-107) Carbon Dioxide Level 34 mmol/L (21-32) Anion Gap 4 (6-14) Blood Urea Nitrogen 19 mg/dL (7-20) Creatinine 1.0 mg/dL (0.6-1.0) Estimated GFR (Cockcroft-Gault) 65.6 BUN/Creatinine Ratio 19 (6-20) Glucose Level 79 mg/dL (70-99) Calcium Level 9.3 mg/dL (8.5-10.1) Total Bilirubin 0.2 mg/dL (0.2-1.0) Aspartate Amino Transf (AST/SGOT) 24 U/L (15-37) Alanine Aminotransferase (ALT/SGPT) 27 U/L (14-59) Alkaline Phosphatase 129 U/L (46-116) Troponin I Quantitative < 0.017 ng/mL (0.000-0.055) Total Protein 7.3 g/dL (6.4-8.2) Albumin 3.0 g/dL (3.4-5.0) Albumin/Globulin Ratio 0.7 (1.0-1.7) O2 Saturation 92 % (92-99) Arterial Blood pH 7.31 (7.35-7.45) Arterial Blood pCO2 at Patient Temp 60 mmHg (35-46) Arterial Blood pO2 at Patient Temp 68 mmHg (65-108) Arterial Blood HCO3 30 mmol/L (21-28) Arterial Blood Base Excess 2 mmol/L (-3-3) FiO2 21 Urine Collection Type U cath Urine Color Yellow Urine Clarity Clear Urine pH 7.0 Urine Specific [place] 1.010 Urine Protein Negative mg/dL (NEG-TRACE) Urine Glucose (UA) Negative mg/dL (NEG) Urine Ketones (Stick) Negative mg/dL (NEG) Urine Blood Negative (NEG) Urine Nitrite Negative (NEG) Urine Bilirubin Negative (NEG) Urine Urobilinogen Dipstick 0.2 mg/dL (0.2 mg/dL) Urine Leukocyte Esterase Trace (NEG) Urine RBC Occ /HPF (0-2) Urine WBC Occ /HPF (0-4) Urine Renal Epithelial Cells Few /LPF Urine Bacteria 0 /HPF (0-FEW) Urine Hyaline Casts Few /HPF Urine Mucus Slight /LPF Test 12/04/16 19:06 12/04/16 19:42 12/04/16 20:16 12/04/16 21:10 Glucose (Fingerstick) 42 mg/dL (70-99) 115 mg/dL (70-99) 114 mg/dL (70-99) 94 mg/dL (70-99) Test 12/04/16 22:20 12/04/16 23:20 12/05/16 01:01 12/05/16 02:39 Glucose (Fingerstick) 109 mg/dL (70-99) 129 mg/dL (70-99) 151 mg/dL (70-99) Nasal Screen MRSA (PCR) Positive (Negative) Test 12/05/16 05:12 12/05/16 05:49 12/05/16 07:40 12/05/16 09:35 Glucose (Fingerstick) 228 mg/dL (70-99) 307 mg/dL (70-99) 301 mg/dL (70-99) White Blood Count 5.6 x10^3/uL (4.0-11.0) Red Blood Count 4.78 x10^6/uL (3.50-5.40) Hemoglobin 12.9 g/dL (12.0-15.5) Hematocrit 38.4 % (36.0-47.0) Mean Corpuscular Volume 80 fL (79-100) Mean Corpuscular Hemoglobin 27 pg (25-35) Mean Corpuscular Hemoglobin Concent 34 g/dL (31-37) Red Cell Distribution Width 17.0 % (11.5-14.5) Platelet Count 264 x10^3/uL (140-400) Neutrophils (%) (Auto) 93 % (31-73) Lymphocytes (%) (Auto) 6 % (24-48) Monocytes (%) (Auto) 1 % (0-9) Eosinophils (%) (Auto) 0 % (0-3) Basophils (%) (Auto) 0 % (0-3) Neutrophils # (Auto) 5.3 x10^3uL (1.8-7.7) Lymphocytes # (Auto) 0.3 x10^3/uL (1.0-4.8) Monocytes # (Auto) 0.0 x10^3/uL (0.0-1.1) Eosinophils # (Auto) 0.0 x10^3/uL (0.0-0.7) Basophils # (Auto) 0.0 x10^3/uL (0.0-0.2) Segmented Neutrophils % 94 % (35-66) Lymphocytes % 5 % (24-48) Monocytes % 1 % (0-10) Platelet Estimate Adequate (ADEQUATE) Sodium Level 129 mmol/L (136-145) Potassium Level 4.4 mmol/L (3.5-5.1) Chloride Level 91 mmol/L (98-107) Carbon Dioxide Level 27 mmol/L (21-32) Anion Gap 11 (6-14) Blood Urea Nitrogen 15 mg/dL (7-20) Creatinine 1.0 mg/dL (0.6-1.0) Estimated GFR (Cockcroft-Gault) 65.6 Glucose Level 258 mg/dL (70-99) Calcium Level 9.3 mg/dL (8.5-10.1) Test 12/05/16 10:39 12/05/16 12:04 12/05/16 16:22 12/05/16 21:08 Glucose (Fingerstick) 287 mg/dL (70-99) 309 mg/dL (70-99) 331 mg/dL (70-99) 392 mg/dL (70-99) Test 12/06/16 02:56 12/06/16 08:00 12/06/16 08:05 12/06/16 10:40 Glucose (Fingerstick) 295 mg/dL (70-99) 258 mg/dL (70-99) O2 Saturation 90 % (92-99) Arterial Blood pH 7.38 (7.35-7.45) Arterial Blood pCO2 at Patient Temp 51 mmHg (35-46) Arterial Blood pO2 at Patient Temp 60 mmHg (65-108) Arterial Blood HCO3 30 mmol/L (21-28) Arterial Blood Base Excess 3 mmol/L (-3-3) FiO2 21 Vitamin B12 Level 1264 pg/mL (247-911) Serum Folate 9.63 ng/ml (3.2-20.0) Vancomycin Level Trough 18.0 mcg/mL (10.0-20.0) Vancomycin Last Dose Date 12/05/16 Vancomycin Last Dose Time 2300 Test 12/06/16 10:47 Glucose (Fingerstick) 291 mg/dL (70-99) Laboratory Tests Test 12/05/16 16:22 12/05/16 21:08 12/06/16 02:56 12/06/16 08:00 Glucose (Fingerstick) 331 mg/dL (70-99) 392 mg/dL (70-99) 295 mg/dL (70-99) O2 Saturation 90 % (92-99) Arterial Blood pH 7.38 (7.35-7.45) Arterial Blood pCO2 at Patient Temp 51 mmHg (35-46) Arterial Blood pO2 at Patient Temp 60 mmHg (65-108) Arterial Blood HCO3 30 mmol/L (21-28) Arterial Blood Base Excess 3 mmol/L (-3-3) FiO2 21 Test 12/06/16 08:05 12/06/16 10:40 12/06/16 10:47 Glucose (Fingerstick) 258 mg/dL (70-99) 291 mg/dL (70-99) Vitamin B12 Level 1264 pg/mL (247-911) Serum Folate 9.63 ng/ml (3.2-20.0) Vancomycin Level Trough 18.0 mcg/mL (10.0-20.0) Vancomycin Last Dose Date 12/05/16 Vancomycin Last Dose Time 2300 Microbiology 12/04/16 Blood Culture - Preliminary, Resulted NO GROWTH AFTER 1 DAY 12/04/16 Urine Culture - Preliminary, Resulted 12/04/16 Urine Culture Result 1 (ANTHONY) - Preliminary, Resulted Medications Current Medications Ammonia (Aromatic Spirit) (Amoply) 1 each STK-MED ONCE .ROUTE ; Start 12/04/16 at 18:02; Stop 12/04/16 at 18:03; Status DC Dextrose (Dextrose 50%-Water Syringe) 25 gm STK-MED ONCE IV ; Start 12/04/16 at 18:04; Stop 12/04/16 at 18:05; Status DC Dextrose/Sodium Chloride 1,000 ml @ 150 mls/hr 1X ONCE IV Last administered on 12/04/16 19:22; Start 12/04/16 at 19:15; Stop 12/05/16 at 01:54; Status DC Dextrose (Dextrose 50%-Water Syringe) 25 gm 1X ONCE IV Last administered on 19:09; Start 12/04/16 at 19:15; Stop 12/04/16 at 19:16; Status DC Dextrose (Dextrose 50%-Water Syringe) 25 gm STK-MED ONCE IV ; Start 12/04/16 at 19:15; Stop 12/04/16 at 19:16; Status DC Lorazepam (Ativan) 0.5 mg 1X ONCE IV Last administered on 12/04/16 21:23; Start 12/04/16 at 21:00; Stop 12/04/16 at 21:01; Status DC Ondansetron HCl (Zofran) 4 mg PRN Q8HRS PRN IV NAUSEA/VOMITING; Start 12/04/16 at 21:00; Stop 12/05/16 at 08:44; Status DC Hydrocortisone Sodium Succinate (Solu-CORTEF) 100 mg 1X ONCE IV ; Start at 22:30; Stop 12/04/16 at 22:30; Status DC Hydrocortisone Sodium Succinate (Solu-CORTEF) 100 mg Q8HRS IV ; Start 12/05/16 at 06:00; Stop 12/05/16 at 06:00; Status DC Methylprednisolone Sodium Succinate (SOLU-Medrol 125MG VIAL) 125 mg 1X ONCE IV Last administered on 12/04/16 23:30; Start 12/04/16 at 22:30; Stop 12/04/16 at 22:31; Status DC Prednisone (Prednisone) 40 mg DAILY PO Last administered on 12/06/16 08:22; Start 12/05/16 at 09:00 Albuterol/ Ipratropium (Duoneb) 3 ml Q4HRS W/A NEB Last administered on 11:37; Start 12/05/16 at 06:00; Stop 12/05/16 at 12:47; Status DC Budesonide (Pulmicort) 0.5 mg RTBID NEB Last administered on 12/05/16 07:43; Start 12/05/16 at 08:00; Stop 12/05/16 at 12:47; Status DC Budesonide (Pulmicort) 0.5 mg 1X ONCE NEB ; Start 12/04/16 at 23:00; Stop 12/04 at 23:01; Status DC Vancomycin HCl (Vanco Per Pharmacy) 1 each PRN DAILY PRN MC SEE COMMENTS Last administered on 12/05/16 01:54; Start 12/04/16 at 22:30 Azithromycin 500 mg/Sodium Chloride 250 ml @ 250 mls/hr 1X ONCE IV Last administered on 12/04/16 23:27; Start 12/04/16 at 23:00; Stop 12/04/16 at 23:59 ; Status DC Azithromycin 250 mg/Sodium Chloride 250 ml @ 250 mls/hr Q24H IV Last administered on 12/05/16 22:14; Start 12/05/16 at 23:00 Saliva Substitute (Biotene Moisturizing Mouth) 2 spray PRN Q15MIN PRN PO DRY MOUTH; Start 12/04/16 at 22:30 Artificial Tears (Artificial Tears) 1 drop PRN Q15MIN PRN OU DRY EYE; Start at 22:30 Vancomycin HCl 2 gm/Sodium Chloride 500 ml @ 250 mls/hr 1X ONCE IV Last administered on 12/04/16 23:30; Start 12/04/16 at 23:00; Stop 12/05/16 at 00:59 ; Status DC Vancomycin HCl 1.5 gm/Sodium Chloride 500 ml @ 250 mls/hr Q12H IV Last administered on 12/06/16 11:38; Start 12/05/16 at 11:00 Vancomycin HCl 1 each 1X ONCE MC Last administered on 12/06/16 10:30; Start 12/06/16 at 10:30; Stop 12/06/16 at 10:31; Status DC Ondansetron HCl (Zofran) 4 mg PRN Q6HRS PRN IV NAUSEA/VOMITING; Start 12/05/16 at 08:40; Stop 12/06/16 at 08:39; Status DC Labetalol HCl (Normodyne) 10 mg PRN Q2HR PRN IVP HYPERTENSION, SEE COMMENTS Last administered on 12/05/16 10:14; Start 12/05/16 at 08:45 Acetaminophen (Tylenol) 500 mg PRN Q6HRS PRN PO MILD PAIN / TEMP; Start at 08:45 Acetaminophen (Tylenol) 650 mg Q6HRS PO Last administered on 12/06/16 06:05; Start 12/05/16 at 12:00 Amlodipine Besylate (Norvasc) 10 mg DAILY PO Last administered on 12/06/16 08: 11; Start 12/05/16 at 09:00 Aspirin (Children'S Aspirin) 81 mg DAILYWBKFT PO Last administered on 08:07; Start 12/05/16 at 09:00 Bisacodyl (Dulcolax Supp) 10 mg PRN DAILY PRN RC CONSTIPATION; Start 12/05/16 at 08:45 Carvedilol (Coreg) 12.5 mg BIDWMEALS PO Last administered on 12/06/16 08:08; Start 12/05/16 at 09:00 Celecoxib (CeleBREX) 200 mg DAILY PO Last administered on 12/06/16 08:10; Start 12/05/16 at 09:00 Cyclobenzaprine HCl (Flexeril) 10 mg TID PO Last administered on 12/06/16 08: 07; Start 12/05/16 at 09:00 Diclofenac Sodium (Voltaren) 1 fabian TID PRN TP PAIN; Start 12/05/16 at 08:45 Docusate Sodium (Colace) 100 mg DAILY PO Last administered on 12/06/16 08:10; Start 12/05/16 at 09:00 Ergocalciferol (Vitamin D2) 50,000 unit WEEKLY PO ; Start 12/09/16 at 09:00 Furosemide (Lasix) 60 mg DAILY PO Last administered on 12/06/16 08:08; Start 12/05/16 at 09:00 Acetaminophen/ Hydrocodone Bitart (Lortab 5/325) 1 tab PRN Q8HRS PRN PO PAIN Last administered on 12/05/16 22:40; Start 12/05/16 at 08:45 Linagliptin (Tradjenta) 5 mg DAILY PO Last administered on 12/06/16 08:10; Start 12/05/16 at 09:00 Sodium Monofluorophosphate (Fleet Adult) 133 ml DAILY PRN RC CONSTIPATION; Start 12/05/16 at 08:45 Oxcarbazepine (Trileptal) 300 mg TID PO Last administered on 12/06/16 08:07; Start 12/05/16 at 09:00 Polyethylene Glycol (miraLAX PACKET) 17 gm DAILY PO ; Start 12/05/16 at 09:00 Quetiapine Fumarate (SEROquel) 25 mg Q6HRS PRN PO AGITATION Last administered on 12/06/16 02:22; Start 12/05/16 at 08:45 Artificial Tears (Artificial Tears) 1 drop TID OU Last administered on 08:21; Start 12/05/16 at 09:00 Duloxetine HCl (Cymbalta) 60 mg BID PO Last administered on 12/06/16 08:11; Start 12/05/16 at 09:00 Losartan Potassium (Cozaar) 100 mg DAILY PO Last administered on 12/06/16 08: 10; Start 12/05/16 at 09:00 Al Hydroxide/Mg Hydroxide (Mylanta Plus Xs) 30 ml PRN Q4HRS PRN PO HEARTBURN / GAS; Start 12/05/16 at 09:00 Magnesium Hydroxide (Milk Of Magnesia) 2,400 mg PRN DAILY PRN PO CONSTIPATION; Start 12/05/16 at 09:00 Meclizine HCl (Antivert) 25 mg PRN Q8HRS PRN PO DIZZINESS; Start 12/05/16 at 09 :00 Potassium Chloride (Klor-Con) 10 meq DAILYWBKFT PO Last administered on 08:07; Start 12/05/16 at 09:00 Insulin Aspart (NovoLOG) 0-9 UNITS TIDWMEALS SQ Last administered on 12/06/16 12:19; Start 12/05/16 at 12:00 Dextrose (Dextrose 50%-Water Syringe) 12.5 gm PRN Q15MIN PRN IV SEE COMMENTS; Start 12/05/16 at 08:45 Enoxaparin Sodium (Lovenox 40mg Syringe) 40 mg Q24H SQ Last administered on 10:55; Start 12/05/16 at 11:00 Albuterol/ Ipratropium (Duoneb) 3 ml PRN Q4HRS PRN NEB SHORTNESS OF BREATH; Start 12/06/16 at 10:00 Insulin Detemir (Levemir) 10 units 1X ONCE SQ Last administered on 12/05/16 22:14; Start 12/05/16 at 22:00; Stop 12/05/16 at 22:01; Status DC Insulin Aspart (NovoLOG) 15 units 1X ONCE SQ Last administered on 12/05/16 22 :13; Start 12/05/16 at 22:00; Stop 12/05/16 at 22:01; Status DC Insulin Detemir (Levemir) 20 units QHS SQ ; Start 12/06/16 at 21:00 Insulin Aspart (NovoLOG) 8 units TIDAC SQ Last administered on 12/06/16 11:44 ; Start 12/06/16 at 11:30 Haloperidol Lactate (Haldol) 1 mg PRN Q6HRS PRN IVP AGITATION; Start 12/06/16 at 11:15 Active Scripts Active Reported Novolog Flexpen (Insulin Aspart) 100 Unit/1 Ml Insuln.pen 15 Unit SQ TID Novolog Flexpen (Insulin Aspart) 100 Unit/1 Ml Insuln.pen 1 Unit SQ Voltaren (Diclofenac Sodium) 100 Gm Gel..gram. 1 Gm TP TID PRN Vitamin D2 (Ergocalciferol (Vitamin D2)) 50,000 Unit Capsule 1 Cap PO WEEKLY Trileptal (Oxcarbazepine) 300 Mg Tablet 300 Mg PO TID Tradjenta (Linagliptin) 5 Mg Tablet 1 Tab PO DAILY Seroquel (Quetiapine Fumarate) 25 Mg Tablet 1 Tab PO Q6HRS PRN Potassium Chloride 10 Meq Capsule.er 10 Meq PO DAILY Norvasc (Amlodipine Besylate) 10 Mg Tablet 10 Mg PO DAILY Alum-Mag Hydroxide-Simeth Liq (Mag Hydrox/Al Hydrox/Simeth) 360 Ml Oral.susp 360 Ml PO Q4HRS PRN Miralax (Polyethylene Glycol 3350) 17 Gm Powd.pack 1 Packet PO DAILY Milk Of Magnesia (Magnesium Hydroxide) 2,400 Mg/10 Ml Oral.susp 2,400 Mg PO DAILY PRN Meclizine Hcl 25 Mg Tablet 25 Mg PO Q8HRS PRN Hydrocodone-Apap 5-325 (Hydrocodone Bit/Acetaminophen) 1 Each Tablet 1 Tab PO PRN Q8HRS PRN Levemir (Insulin Detemir) 100 Unit/1 Ml Vial 20 Unit SQ BID Lasix (Furosemide) 20 Mg Tablet 3 Tab PO DAILY Cyclobenzaprine Hcl 10 Mg Tablet 1 Tab PO TID Fleet Enema (Na Phos,M-B/Na Phos,Di-Ba) 133 Ml Enema 133 Ml RC DAILY PRN Dulcolax (Bisacodyl) 10 Mg Supp.rect 10 Mg RC PRN DAILY PRN Cymbalta (Duloxetine Hcl) 60 Mg Capsule.dr 1 Cap PO BID Cozaar (Losartan Potassium) 100 Mg Tablet 100 Mg PO DAILY Coreg (Carvedilol) 12.5 Mg Tablet 1 Tab PO BID Colace (Docusate Sodium) 100 Mg Capsule 100 Mg PO DAILY Celebrex (Celecoxib) 200 Mg Capsule 1 Cap PO DAILY Aspirin 81 Mg Tab.chew 1 Tab PO DAILY Artificial Tears Drops (Dextran 70/Hypromellose/Pf) 1 Each Droperette 1 Each OP TID Acetaminophen 325 Mg Tablet 650 Mg PO Q6HRS Vitals/I & O Vital Sign - Last 24 Hours 12/05/16 12/05/16 12/05/16 12/05/16 14:40 16:59 19:10 20:00 Temp 100.6 100.8 100.6 100.8 Pulse 105 105 100 Resp 18 24 B/P (MAP) 163/70 (101) 163/70 135/63 (87) Pulse Ox 94 93 O2 Delivery Room Air Room Air Room Air 12/06/16 12/06/16 12/06/16 12/06/16 03:10 07:55 08:00 08:08 Temp 98.1 98.1 Pulse 93 93 Resp 22 B/P (MAP) 115/64 (81) 129/54 Pulse Ox 94 O2 Delivery Room Air Room Air Room Air 12/06/16 12/06/16 12/06/16 12/06/16 08:10 08:11 08:24 10:59 Temp 98.8 98.6 98.8 98.6 Pulse 93 93 95 77 Resp 18 20 B/P (MAP) 129/54 129/54 129/54 (79) 129/60 (83) Pulse Ox 93 96 O2 Delivery Room Air Room Air Intake and Output 12/05/16 12/05/16 12/06/16 15:00 23:00 07:00 Intake Total 300 ml 1850 ml Balance 300 ml 1850 ml CHANEL WETZEL MD Dec 06, 2016 12:52
[2016-12-06] MEDS ORDERED: levOFLOXacin PER PHARMACY. MC PRN (13:00)
[2016-12-06] MEDS: VANCOMYCIN PER PHARMACY MC PRN (14:21)
[2016-12-06] MEDS: HYDROcodone/APAP 5/325MG 1 TAB TABLET PO PRN (14:41)
[2016-12-06 15:00] VITALS: BP 144/69
[2016-12-06] MEDS: IPRATRPIUM/ALBUTEROL 0.5/2.5MG 3 ML NEBU. NEB PRN ×2 (17:08→19:18)
[2016-12-06 19:05] VITALS: BP 129/62
[2016-12-06] MEDS ORDERED: INSULIN DETEMIR 300 UNITS/3 ML INSULN.PEN. SQ SCH (21:00)
[2016-12-06 23:00] VITALS: BP 154/78
[2016-12-07] MEDS: HYDROcodone/APAP 5/325MG 1 TAB TABLET PO PRN ×2 (00:05→11:56)
[2016-12-07 02:41] VITALS: BP 192/78
[2016-12-07 05:58] VITALS: BP 154/68
[2016-12-07] MEDS: ACETAMINOPHEN 325 MG TABLET. PO SCH ×4 (05:59→23:47)
[2016-12-07 06:43] LABS: BASO # 0.1 x10^3/uL (0.0-0.2); BASO % 1 % (0-3); EOS % 2 % (0-3); HEMOGLOBIN 12.1 g/dL (12.0-15.5); LYMPH # 1.8 x10^3/uL (1.0-4.8); LYMPH % 22 % (24-48); MEAN CORPUSCULAR HEMOGLOBIN 27 pg (25-35); MEAN CORPUSCULAR HGB CONC 33 g/dL (31-37); MEAN CORPUSCULAR VOLUME 82 fL (79-100); MONO % 12 % (0-9); NEUT % 64 % (31-73); PLATELET COUNT 234 x10^3/uL (140-400); RED BLOOD COUNT 4.51 x10^6/uL (3.50-5.40); RED CELL DISTRIBUTION WIDTH 17.1 % (11.5-14.5); WHITE BLOOD COUNT 8.4 x10^3/uL (4.0-11.0)
[2016-12-07 07:00] VITALS: BP 147/76
[2016-12-07 07:04] LABS: CALCIUM 9.3 mg/dL (8.5-10.1); CREATININE 1.1 mg/dL (0.6-1.0); GFR 58.7; POTASSIUM 4.5 mmol/L (3.5-5.1)
[2016-12-07] MEDS: POTASSIUM CHLORIDE 10 MEQ TABLET.ER. PO SCH (08:22)
[2016-12-07] MEDS: FUROSEMIDE 20 MG TABLET PO SCH (08:22)
[2016-12-07] MEDS: DOCUSATE SODIUM 100 MG CAPSULE. PO SCH (08:22)
[2016-12-07] MEDS: LOSARTAN POTASSIUM 50 MG TABLET. PO SCH (08:23)
[2016-12-07] MEDS: DULoxetine HCL 30 MG CAPSULE.DR PO SCH ×2 (08:24→22:05)
[2016-12-07] MEDS: OXcarbazepine 300 MG TABLET PO SCH ×3 (08:24→21:52)
[2016-12-07] MEDS: CYCLOBENZAPRINE 10 MG TABLET. PO SCH ×3 (08:24→21:52)
[2016-12-07] MEDS: ASPIRIN CHEWABLE 81 MG TABLET. PO SCH (08:24)
[2016-12-07] MEDS: predniSONE 20 MG TABLET PO SCH (08:24)
[2016-12-07] MEDS: CELECOXIB 200 MG CAPSULE. PO SCH (08:24)
[2016-12-07] MEDS: POLYETHYLENE GLYCOL 3350 17 GM PACKET. PO SCH (08:25)
[2016-12-07] MEDS: CARVEDILOL 12.5 MG TABLET. PO SCH ×2 (08:25→17:43)
[2016-12-07] MEDS: amLODIPine BESYLATE 10 MG TABLET PO SCH (08:25)
[2016-12-07] MEDS: POLYVINYL ALCOHOL 1.4% OPHTH SOLUTION 15ML BOTTLE. OU SCH ×3 (08:32→21:52)
[2016-12-07] MEDS: INSULIN ASPART 300 UNITS/3 ML INSULN.PEN SQ SCH ×6 (08:39→16:50)
[2016-12-07] MEDS: LINAGLIPTIN 5 MG TABLET PO SCH (08:40)
--- NOTE | 2016-12-07 10:32 | PDOC ---
PROGRESS NOTES Assessment Problems Medical Problems: (1) Altered mental status Status: Acute Metabolic encephalopathy with prior dementia Chronic paraparesis, wheelchair-bound, related to diabetic neuropathy Additional laboratory studies I ordered are negative Plan 1:1 nursing Seroquel Subjective Wants to get out of bed Objective Vital Signs Date Time Temp Pulse Resp B/P (MAP) Pulse Ox O2 Delivery O2 Flow Rate FiO2 12/07/16 08:25 85 147/76 12/07/16 08:00 Room Air 12/07/16 07:00 98.1 18 98 3.0 98.1 Intake and Output 12/07/16 07:00 Intake Total 1340 ml Balance 1340 ml Intake Oral 740 ml IV Total 600 ml # Voids 6 # Bowel Movements 2 PHYSICAL EXAM Alert. Oriented to "Hospital" and person. PERRL. EOMI. CN: no focal findings. Muscle tone: normal. Muscle strength: 2/5 legs, 4/5 arms DTR: 0+ Plantar reflex: Silent Gait: not examined in bed. Sensory exam: no abnormal findings. No cerebellar signs elicited. Review of Relevant I have reviewed the following items halle (where applicable) has been applied. Labs Laboratory Tests Test 12/05/16 10:39 12/05/16 12:04 12/05/16 16:22 12/05/16 21:08 Glucose (Fingerstick) 287 mg/dL (70-99) 309 mg/dL (70-99) 331 mg/dL (70-99) 392 mg/dL (70-99) Test 12/06/16 02:56 12/06/16 08:00 12/06/16 08:05 12/06/16 10:40 Glucose (Fingerstick) 295 mg/dL (70-99) 258 mg/dL (70-99) O2 Saturation 90 % (92-99) Arterial Blood pH 7.38 (7.35-7.45) Arterial Blood pCO2 at Patient Temp 51 mmHg (35-46) Arterial Blood pO2 at Patient Temp 60 mmHg (65-108) Arterial Blood HCO3 30 mmol/L (21-28) Arterial Blood Base Excess 3 mmol/L (-3-3) FiO2 21 Erythrocyte Sedimentation Rate 30 (0-25) Vitamin B12 Level 1264 pg/mL (247-911) Serum Folate 9.63 ng/ml (3.2-20.0) Vancomycin Level Trough 18.0 mcg/mL (10.0-20.0) Vancomycin Last Dose Date 12/05/16 Vancomycin Last Dose Time 2300 Test 12/06/16 10:47 12/06/16 16:50 12/06/16 20:23 12/07/16 05:30 Glucose (Fingerstick) 291 mg/dL (70-99) 316 mg/dL (70-99) 297 mg/dL (70-99) White Blood Count 8.4 x10^3/uL (4.0-11.0) Red Blood Count 4.51 x10^6/uL (3.50-5.40) Hemoglobin 12.1 g/dL (12.0-15.5) Hematocrit 37.0 % (36.0-47.0) Mean Corpuscular Volume 82 fL (79-100) Mean Corpuscular Hemoglobin 27 pg (25-35) Mean Corpuscular Hemoglobin Concent 33 g/dL (31-37) Red Cell Distribution Width 17.1 % (11.5-14.5) Platelet Count 234 x10^3/uL (140-400) Neutrophils (%) (Auto) 64 % (31-73) Lymphocytes (%) (Auto) 22 % (24-48) Monocytes (%) (Auto) 12 % (0-9) Eosinophils (%) (Auto) 2 % (0-3) Basophils (%) (Auto) 1 % (0-3) Neutrophils # (Auto) 5.4 x10^3uL (1.8-7.7) Lymphocytes # (Auto) 1.8 x10^3/uL (1.0-4.8) Monocytes # (Auto) 1.0 x10^3/uL (0.0-1.1) Eosinophils # (Auto) 0.1 x10^3/uL (0.0-0.7) Basophils # (Auto) 0.1 x10^3/uL (0.0-0.2) Sodium Level 133 mmol/L (136-145) Potassium Level 4.5 mmol/L (3.5-5.1) Chloride Level 96 mmol/L (98-107) Carbon Dioxide Level 30 mmol/L (21-32) Anion Gap 7 (6-14) Blood Urea Nitrogen 27 mg/dL (7-20) Creatinine 1.1 mg/dL (0.6-1.0) Estimated GFR (Cockcroft-Gault) 58.7 Glucose Level 215 mg/dL (70-99) Calcium Level 9.3 mg/dL (8.5-10.1) Test 12/07/16 07:18 Glucose (Fingerstick) 189 mg/dL (70-99) Laboratory Tests Test 12/06/16 10:40 12/06/16 10:47 12/06/16 16:50 12/06/16 20:23 Erythrocyte Sedimentation Rate 30 (0-25) Vitamin B12 Level 1264 pg/mL (247-911) Serum Folate 9.63 ng/ml (3.2-20.0) Vancomycin Level Trough 18.0 mcg/mL (10.0-20.0) Vancomycin Last Dose Date 12/05/16 Vancomycin Last Dose Time 2300 Glucose (Fingerstick) 291 mg/dL (70-99) 316 mg/dL (70-99) 297 mg/dL (70-99) Test 12/07/16 05:30 12/07/16 07:18 White Blood Count 8.4 x10^3/uL (4.0-11.0) Red Blood Count 4.51 x10^6/uL (3.50-5.40) Hemoglobin 12.1 g/dL (12.0-15.5) Hematocrit 37.0 % (36.0-47.0) Mean Corpuscular Volume 82 fL (79-100) Mean Corpuscular Hemoglobin 27 pg (25-35) Mean Corpuscular Hemoglobin Concent 33 g/dL (31-37) Red Cell Distribution Width 17.1 % (11.5-14.5) Platelet Count 234 x10^3/uL (140-400) Neutrophils (%) (Auto) 64 % (31-73) Lymphocytes (%) (Auto) 22 % (24-48) Monocytes (%) (Auto) 12 % (0-9) Eosinophils (%) (Auto) 2 % (0-3) Basophils (%) (Auto) 1 % (0-3) Neutrophils # (Auto) 5.4 x10^3uL (1.8-7.7) Lymphocytes # (Auto) 1.8 x10^3/uL (1.0-4.8) Monocytes # (Auto) 1.0 x10^3/uL (0.0-1.1) Eosinophils # (Auto) 0.1 x10^3/uL (0.0-0.7) Basophils # (Auto) 0.1 x10^3/uL (0.0-0.2) Sodium Level 133 mmol/L (136-145) Potassium Level 4.5 mmol/L (3.5-5.1) Chloride Level 96 mmol/L (98-107) Carbon Dioxide Level 30 mmol/L (21-32) Anion Gap 7 (6-14) Blood Urea Nitrogen 27 mg/dL (7-20) Creatinine 1.1 mg/dL (0.6-1.0) Estimated GFR (Cockcroft-Gault) 58.7 Glucose Level 215 mg/dL (70-99) Calcium Level 9.3 mg/dL (8.5-10.1) Glucose (Fingerstick) 189 mg/dL (70-99) Microbiology 12/04/16 Blood Culture - Preliminary, Resulted NO GROWTH AFTER 2 DAYS 12/04/16 Urine Culture - Final, Complete 12/04/16 Urine Culture Result 1 (ANTHONY) - Final, Complete Medications Current Medications Ammonia (Aromatic Spirit) (Amoply) 1 each STK-MED ONCE .ROUTE ; Start 12/04/16 at 18:02; Stop 12/04/16 at 18:03; Status DC Dextrose (Dextrose 50%-Water Syringe) 25 gm STK-MED ONCE IV ; Start 12/04/16 at 18:04; Stop 12/04/16 at 18:05; Status DC Dextrose/Sodium Chloride 1,000 ml @ 150 mls/hr 1X ONCE IV Last administered on 12/04/16t 19:22; Start 12/04/16 at 19:15; Stop 12/05/16 at 01:54; Status DC Dextrose (Dextrose 50%-Water Syringe) 25 gm 1X ONCE IV Last administered on t 19:09; Start 12/04/16 at 19:15; Stop 12/04/16 at 19:16; Status DC Dextrose (Dextrose 50%-Water Syringe) 25 gm STK-MED ONCE IV ; Start 12/04/16 at 19:15; Stop 12/04/16 at 19:16; Status DC Lorazepam (Ativan) 0.5 mg 1X ONCE IV Last administered on 12/04/16 21:23; Start 12/04/16 at 21:00; Stop 12/04/16 at 21:01; Status DC Ondansetron HCl (Zofran) 4 mg PRN Q8HRS PRN IV NAUSEA/VOMITING; Start 12/04/16 at 21:00; Stop 12/05/16 at 08:44; Status DC Hydrocortisone Sodium Succinate (Solu-CORTEF) 100 mg 1X ONCE IV ; Start at 22:30; Stop 12/04/16 at 22:30; Status DC Hydrocortisone Sodium Succinate (Solu-CORTEF) 100 mg Q8HRS IV ; Start 12/05/16 at 06:00; Stop 12/05/16 at 06:00; Status DC Methylprednisolone Sodium Succinate (SOLU-Medrol 125MG VIAL) 125 mg 1X ONCE IV Last administered on 12/04/16 23:30; Start 12/04/16 at 22:30; Stop 12/04/16 at 22:31; Status DC Prednisone (Prednisone) 40 mg DAILY PO Last administered on 12/07/16 08:24; Start 12/05/16 at 09:00 Albuterol/ Ipratropium (Duoneb) 3 ml Q4HRS W/A NEB Last administered on 11:37; Start 12/05/16 at 06:00; Stop 12/05/16 at 12:47; Status DC Budesonide (Pulmicort) 0.5 mg RTBID NEB Last administered on 12/05/16 07:43; Start 12/05/16 at 08:00; Stop 12/05/16 at 12:47; Status DC Budesonide (Pulmicort) 0.5 mg 1X ONCE NEB ; Start 12/04/16 at 23:00; Stop 12/04 at 23:01; Status DC Vancomycin HCl (Vanco Per Pharmacy) 1 each PRN DAILY PRN MC SEE COMMENTS Last administered on 12/06/16 14:21; Start 12/04/16 at 22:30 Azithromycin 500 mg/Sodium Chloride 250 ml @ 250 mls/hr 1X ONCE IV Last administered on 12/04/16 23:27; Start 12/04/16 at 23:00; Stop 12/04/16 at 23:59 ; Status DC Azithromycin 250 mg/Sodium Chloride 250 ml @ 250 mls/hr Q24H IV Last administered on 12/05/16 22:14; Start 12/05/16 at 23:00; Stop 12/06/16 at 12:48 ; Status DC Saliva Substitute (Biotene Moisturizing Mouth) 2 spray PRN Q15MIN PRN PO DRY MOUTH; Start 12/04/16 at 22:30 Artificial Tears (Artificial Tears) 1 drop PRN Q15MIN PRN OU DRY EYE; Start at 22:30 Vancomycin HCl 2 gm/Sodium Chloride 500 ml @ 250 mls/hr 1X ONCE IV Last administered on 12/04/16 23:30; Start 12/04/16 at 23:00; Stop 12/05/16 at 00:59 ; Status DC Vancomycin HCl 1.5 gm/Sodium Chloride 500 ml @ 250 mls/hr Q12H IV Last administered on 12/06/16 22:49; Start 12/05/16 at 11:00 Vancomycin HCl 1 each 1X ONCE MC Last administered on 12/06/16 10:30; Start 12/06/16 at 10:30; Stop 12/06/16 at 10:31; Status DC Ondansetron HCl (Zofran) 4 mg PRN Q6HRS PRN IV NAUSEA/VOMITING; Start 12/05/16 at 08:40; Stop 12/06/16 at 08:39; Status DC Labetalol HCl (Normodyne) 10 mg PRN Q2HR PRN IVP HYPERTENSION, SEE COMMENTS Last administered on 12/05/16 10:14; Start 12/05/16 at 08:45 Acetaminophen (Tylenol) 500 mg PRN Q6HRS PRN PO MILD PAIN / TEMP; Start at 08:45 Acetaminophen (Tylenol) 650 mg Q6HRS PO Last administered on 12/07/16 05:59; Start 12/05/16 at 12:00 Amlodipine Besylate (Norvasc) 10 mg DAILY PO Last administered on 12/07/16 08: 25; Start 12/05/16 at 09:00 Aspirin (Children'S Aspirin) 81 mg DAILYWBKFT PO Last administered on 08:24; Start 12/05/16 at 09:00 Bisacodyl (Dulcolax Supp) 10 mg PRN DAILY PRN RC CONSTIPATION; Start 12/05/16 at 08:45 Carvedilol (Coreg) 12.5 mg BIDWMEALS PO Last administered on 12/07/16 08:25; Start 12/05/16 at 09:00 Celecoxib (CeleBREX) 200 mg DAILY PO Last administered on 12/07/16 08:24; Start 12/05/16 at 09:00 Cyclobenzaprine HCl (Flexeril) 10 mg TID PO Last administered on 12/07/16 08: 24; Start 12/05/16 at 09:00 Diclofenac Sodium (Voltaren) 1 fabian TID PRN TP PAIN; Start 12/05/16 at 08:45 Docusate Sodium (Colace) 100 mg DAILY PO Last administered on 12/07/16 08:22; Start 12/05/16 at 09:00 Ergocalciferol (Vitamin D2) 50,000 unit WEEKLY PO ; Start 12/09/16 at 09:00 Furosemide (Lasix) 60 mg DAILY PO Last administered on 12/07/16 08:22; Start 12/05/16 at 09:00 Acetaminophen/ Hydrocodone Bitart (Lortab 5/325) 1 tab PRN Q8HRS PRN PO PAIN Last administered on 12/07/16 00:05; Start 12/05/16 at 08:45 Linagliptin (Tradjenta) 5 mg DAILY PO Last administered on 12/07/16 08:40; Start 12/05/16 at 09:00 Sodium Monofluorophosphate (Fleet Adult) 133 ml DAILY PRN RC CONSTIPATION; Start 12/05/16 at 08:45 Oxcarbazepine (Trileptal) 300 mg TID PO Last administered on 12/07/16 08:24; Start 12/05/16 at 09:00 Polyethylene Glycol (miraLAX PACKET) 17 gm DAILY PO Last administered on 08:25; Start 12/05/16 at 09:00 Quetiapine Fumarate (SEROquel) 25 mg Q6HRS PRN PO AGITATION Last administered on 12/06/16 02:22; Start 12/05/16 at 08:45 Artificial Tears (Artificial Tears) 1 drop TID OU Last administered on 08:32; Start 12/05/16 at 09:00 Duloxetine HCl (Cymbalta) 60 mg BID PO Last administered on 12/07/16 08:24; Start 12/05/16 at 09:00 Losartan Potassium (Cozaar) 100 mg DAILY PO Last administered on 12/07/16 08: 23; Start 12/05/16 at 09:00 Al Hydroxide/Mg Hydroxide (Mylanta Plus Xs) 30 ml PRN Q4HRS PRN PO HEARTBURN / GAS; Start 12/05/16 at 09:00 Magnesium Hydroxide (Milk Of Magnesia) 2,400 mg PRN DAILY PRN PO CONSTIPATION; Start 12/05/16 at 09:00 Meclizine HCl (Antivert) 25 mg PRN Q8HRS PRN PO DIZZINESS; Start 12/05/16 at 09 :00 Potassium Chloride (Klor-Con) 10 meq DAILYWBKFT PO Last administered on 08:22; Start 12/05/16 at 09:00 Insulin Aspart (NovoLOG) 0-9 UNITS TIDWMEALS SQ Last administered on 12/07/16 08:39; Start 12/05/16 at 12:00 Dextrose (Dextrose 50%-Water Syringe) 12.5 gm PRN Q15MIN PRN IV SEE COMMENTS; Start 12/05/16 at 08:45 Enoxaparin Sodium (Lovenox 40mg Syringe) 40 mg Q24H SQ Last administered on 10:55; Start 12/05/16 at 11:00 Albuterol/ Ipratropium (Duoneb) 3 ml PRN Q4HRS PRN NEB SHORTNESS OF BREATH Last administered on 12/06/16 19:18; Start 12/06/16 at 10:00 Insulin Detemir (Levemir) 10 units 1X ONCE SQ Last administered on 12/05/16 22:14; Start 12/05/16 at 22:00; Stop 12/05/16 at 22:01; Status DC Insulin Aspart (NovoLOG) 15 units 1X ONCE SQ Last administered on 12/05/16 22 :13; Start 12/05/16 at 22:00; Stop 12/05/16 at 22:01; Status DC Insulin Detemir (Levemir) 20 units QHS SQ Last administered on 12/06/16 21:03 ; Start 12/06/16 at 21:00; Stop 12/07/16 at 09:59; Status DC Insulin Aspart (NovoLOG) 8 units TIDAC SQ Last administered on 12/07/16 08:39 ; Start 12/06/16 at 11:30; Stop 12/07/16 at 09:59; Status DC Haloperidol Lactate (Haldol) 1 mg PRN Q6HRS PRN IVP AGITATION; Start 12/06/16 at 11:15 Levofloxacin/ Dextrose (Levaquin Per Pharmacy) 1 each PRN DAILY PRN MC SEE COMMENTS; Start 12/06/16 at 13:00; Status UNV Levofloxacin/ Dextrose 100 ml @ 100 mls/hr Q24H IV Last administered on 14:34; Start 12/06/16 at 14:00 Insulin Aspart (NovoLOG) 10 units TIDAC SQ ; Start 12/07/16 at 11:30 Insulin Detemir (Levemir) 25 units QHS SQ ; Start 12/07/16 at 21:00 Active Scripts Active Reported Novolog Flexpen (Insulin Aspart) 100 Unit/1 Ml Insuln.pen 15 Unit SQ TID Novolog Flexpen (Insulin Aspart) 100 Unit/1 Ml Insuln.pen 1 Unit SQ Voltaren (Diclofenac Sodium) 100 Gm Gel..gram. 1 Gm TP TID PRN Vitamin D2 (Ergocalciferol (Vitamin D2)) 50,000 Unit Capsule 1 Cap PO WEEKLY Trileptal (Oxcarbazepine) 300 Mg Tablet 300 Mg PO TID Tradjenta (Linagliptin) 5 Mg Tablet 1 Tab PO DAILY Seroquel (Quetiapine Fumarate) 25 Mg Tablet 1 Tab PO Q6HRS PRN Potassium Chloride 10 Meq Capsule.er 10 Meq PO DAILY Norvasc (Amlodipine Besylate) 10 Mg Tablet 10 Mg PO DAILY Alum-Mag Hydroxide-Simeth Liq (Mag Hydrox/Al Hydrox/Simeth) 360 Ml Oral.susp 360 Ml PO Q4HRS PRN Miralax (Polyethylene Glycol 3350) 17 Gm Powd.pack 1 Packet PO DAILY Milk Of Magnesia (Magnesium Hydroxide) 2,400 Mg/10 Ml Oral.susp 2,400 Mg PO DAILY PRN Meclizine Hcl 25 Mg Tablet 25 Mg PO Q8HRS PRN Hydrocodone-Apap 5-325 (Hydrocodone Bit/Acetaminophen) 1 Each Tablet 1 Tab PO PRN Q8HRS PRN Levemir (Insulin Detemir) 100 Unit/1 Ml Vial 20 Unit SQ BID Lasix (Furosemide) 20 Mg Tablet 3 Tab PO DAILY Cyclobenzaprine Hcl 10 Mg Tablet 1 Tab PO TID Fleet Enema (Na Phos,M-B/Na Phos,Di-Ba) 133 Ml Enema 133 Ml RC DAILY PRN Dulcolax (Bisacodyl) 10 Mg Supp.rect 10 Mg RC PRN DAILY PRN Cymbalta (Duloxetine Hcl) 60 Mg Capsule.dr 1 Cap PO BID Cozaar (Losartan Potassium) 100 Mg Tablet 100 Mg PO DAILY Coreg (Carvedilol) 12.5 Mg Tablet 1 Tab PO BID Colace (Docusate Sodium) 100 Mg Capsule 100 Mg PO DAILY Celebrex (Celecoxib) 200 Mg Capsule 1 Cap PO DAILY Aspirin 81 Mg Tab.chew 1 Tab PO DAILY Artificial Tears Drops (Dextran 70/Hypromellose/Pf) 1 Each Droperette 1 Each OP TID Acetaminophen 325 Mg Tablet 650 Mg PO Q6HRS Vitals/I & O Vital Sign - Last 24 Hours 12/06/16 12/06/16 12/06/16 12/06/16 10:59 14:41 15:00 15:48 Temp 98.6 97.7 98.6 97.7 Pulse 77 89 Resp 20 22 B/P (MAP) 129/60 (83) 144/69 (94) Pulse Ox 96 96 95 95 O2 Delivery Room Air Room Air Room Air Room Air 12/06/16 12/06/16 12/06/16 12/06/16 17:01 17:10 19:05 19:44 Temp 97.9 97.9 Pulse 89 90 Resp 18 B/P (MAP) 144/69 129/62 (84) Pulse Ox 96 100 O2 Delivery Nasal Cannula Nasal Cannula Nasal Cannula O2 Flow Rate 1.0 2.0 3.0 12/06/16 12/06/16 12/07/16 12/07/16 19:59 23:00 02:41 05:58 Temp 98.4 98.1 98.4 98.1 Pulse 84 88 81 Resp 18 18 B/P (MAP) 154/78 (103) 192/78 (116) 154/68 (96) Pulse Ox 98 99 O2 Delivery Nasal Cannula Nasal Cannula Nasal Cannula O2 Flow Rate 3.0 3.0 3.0 12/07/16 12/07/16 12/07/16 12/07/16 07:00 08:00 08:23 08:25 Temp 98.1 98.1 Pulse 85 85 85 Resp 18 B/P (MAP) 147/76 (99) 147/76 147/73 Pulse Ox 98 O2 Delivery Nasal Cannula Room Air O2 Flow Rate 3.0 12/07/16 08:25 Pulse 85 B/P (MAP) 147/76 Intake and Output 12/06/16 12/06/16 12/07/16 15:00 23:00 07:00 Intake Total 740 ml 600 ml Balance 740 ml 600 ml CAMERON OLIVEIRA MD Dec 07, 2016 10:32
[2016-12-07 10:50] VITALS: BP 129/50
--- NOTE | 2016-12-07 11:28 | PDOC ---
PULMONARY PROGRESS NOTES Subjective confused Vitals Vital Signs Date Time Temp Pulse Resp B/P (MAP) Pulse Ox O2 Delivery O2 Flow Rate FiO2 12/07/16 10:50 98.2 69 18 129/50 (76) 100 Nasal Cannula 3.0 98.2 General: No acute distress Lungs: Other (normal air entry) Cardiovascular: S1 Abdomen: Soft Extremities: No Edema Skin: Warm Labs Laboratory Tests Test 12/05/16 12:04 12/05/16 16:22 12/05/16 21:08 12/06/16 02:56 Glucose (Fingerstick) 309 mg/dL (70-99) 331 mg/dL (70-99) 392 mg/dL (70-99) 295 mg/dL (70-99) Test 12/06/16 08:00 12/06/16 08:05 12/06/16 10:40 12/06/16 10:47 O2 Saturation 90 % (92-99) Arterial Blood pH 7.38 (7.35-7.45) Arterial Blood pCO2 at Patient Temp 51 mmHg (35-46) Arterial Blood pO2 at Patient Temp 60 mmHg (65-108) Arterial Blood HCO3 30 mmol/L (21-28) Arterial Blood Base Excess 3 mmol/L (-3-3) FiO2 21 Glucose (Fingerstick) 258 mg/dL (70-99) 291 mg/dL (70-99) Erythrocyte Sedimentation Rate 30 (0-25) Vitamin B12 Level 1264 pg/mL (247-911) Serum Folate 9.63 ng/ml (3.2-20.0) Vancomycin Level Trough 18.0 mcg/mL (10.0-20.0) Vancomycin Last Dose Date 12/05/16 Vancomycin Last Dose Time 2300 Test 12/06/16 16:50 12/06/16 20:23 12/07/16 05:30 12/07/16 07:18 Glucose (Fingerstick) 316 mg/dL (70-99) 297 mg/dL (70-99) 189 mg/dL (70-99) White Blood Count 8.4 x10^3/uL (4.0-11.0) Red Blood Count 4.51 x10^6/uL (3.50-5.40) Hemoglobin 12.1 g/dL (12.0-15.5) Hematocrit 37.0 % (36.0-47.0) Mean Corpuscular Volume 82 fL (79-100) Mean Corpuscular Hemoglobin 27 pg (25-35) Mean Corpuscular Hemoglobin Concent 33 g/dL (31-37) Red Cell Distribution Width 17.1 % (11.5-14.5) Platelet Count 234 x10^3/uL (140-400) Neutrophils (%) (Auto) 64 % (31-73) Lymphocytes (%) (Auto) 22 % (24-48) Monocytes (%) (Auto) 12 % (0-9) Eosinophils (%) (Auto) 2 % (0-3) Basophils (%) (Auto) 1 % (0-3) Neutrophils # (Auto) 5.4 x10^3uL (1.8-7.7) Lymphocytes # (Auto) 1.8 x10^3/uL (1.0-4.8) Monocytes # (Auto) 1.0 x10^3/uL (0.0-1.1) Eosinophils # (Auto) 0.1 x10^3/uL (0.0-0.7) Basophils # (Auto) 0.1 x10^3/uL (0.0-0.2) Sodium Level 133 mmol/L (136-145) Potassium Level 4.5 mmol/L (3.5-5.1) Chloride Level 96 mmol/L (98-107) Carbon Dioxide Level 30 mmol/L (21-32) Anion Gap 7 (6-14) Blood Urea Nitrogen 27 mg/dL (7-20) Creatinine 1.1 mg/dL (0.6-1.0) Estimated GFR (Cockcroft-Gault) 58.7 Glucose Level 215 mg/dL (70-99) Calcium Level 9.3 mg/dL (8.5-10.1) Test 12/07/16 11:03 Glucose (Fingerstick) 177 mg/dL (70-99) Laboratory Tests Test 12/06/16 16:50 12/06/16 20:23 12/07/16 05:30 12/07/16 07:18 Glucose (Fingerstick) 316 mg/dL (70-99) 297 mg/dL (70-99) 189 mg/dL (70-99) White Blood Count 8.4 x10^3/uL (4.0-11.0) Red Blood Count 4.51 x10^6/uL (3.50-5.40) Hemoglobin 12.1 g/dL (12.0-15.5) Hematocrit 37.0 % (36.0-47.0) Mean Corpuscular Volume 82 fL (79-100) Mean Corpuscular Hemoglobin 27 pg (25-35) Mean Corpuscular Hemoglobin Concent 33 g/dL (31-37) Red Cell Distribution Width 17.1 % (11.5-14.5) Platelet Count 234 x10^3/uL (140-400) Neutrophils (%) (Auto) 64 % (31-73) Lymphocytes (%) (Auto) 22 % (24-48) Monocytes (%) (Auto) 12 % (0-9) Eosinophils (%) (Auto) 2 % (0-3) Basophils (%) (Auto) 1 % (0-3) Neutrophils # (Auto) 5.4 x10^3uL (1.8-7.7) Lymphocytes # (Auto) 1.8 x10^3/uL (1.0-4.8) Monocytes # (Auto) 1.0 x10^3/uL (0.0-1.1) Eosinophils # (Auto) 0.1 x10^3/uL (0.0-0.7) Basophils # (Auto) 0.1 x10^3/uL (0.0-0.2) Sodium Level 133 mmol/L (136-145) Potassium Level 4.5 mmol/L (3.5-5.1) Chloride Level 96 mmol/L (98-107) Carbon Dioxide Level 30 mmol/L (21-32) Anion Gap 7 (6-14) Blood Urea Nitrogen 27 mg/dL (7-20) Creatinine 1.1 mg/dL (0.6-1.0) Estimated GFR (Cockcroft-Gault) 58.7 Glucose Level 215 mg/dL (70-99) Calcium Level 9.3 mg/dL (8.5-10.1) Test 12/07/16 11:03 Glucose (Fingerstick) 177 mg/dL (70-99) Medications Active Scripts Medications Dose Route/Sig Max Daily Dose Days Date Category Novolog Flexpen (Insulin Aspart) 100 Unit/1 Ml Insuln.pen 15 Unit SQ TID 12/05/16 Reported Novolog Flexpen (Insulin Aspart) 100 Unit/1 Ml Insuln.pen 1 Unit SQ 12/05/16 Reported Voltaren (Diclofenac Sodium) 100 Gm Gel..gram. 1 Gm TP TID PRN 12/05/16 Reported Vitamin D2 (Ergocalciferol (Vitamin D2)) 50,000 Unit Capsule 1 Cap PO WEEKLY 12/05/16 Reported Trileptal (Oxcarbazepine) 300 Mg Tablet 300 Mg PO TID 12/05/16 Reported Tradjenta (Linagliptin) 5 Mg Tablet 1 Tab PO DAILY 12/05/16 Reported Seroquel (Quetiapine Fumarate) 25 Mg Tablet 1 Tab PO Q6HRS PRN 12/05/16 Reported Potassium Chloride 10 Meq Capsule.er 10 Meq PO DAILY 12/05/16 Reported Norvasc (Amlodipine Besylate) 10 Mg Tablet 10 Mg PO DAILY 12/05/16 Reported Alum-Mag Hydroxide-Simeth Liq (Mag Hydrox/Al Hydrox/Simeth) 360 Ml Oral.susp 360 Ml PO Q4HRS PRN 12/05/16 Reported Miralax (Polyethylene Glycol 3350) 17 Gm Powd.pack 1 Packet PO DAILY 12/05/16 Reported Milk Of Magnesia (Magnesium Hydroxide) 2,400 Mg/10 Ml Oral.susp 2,400 Mg PO DAILY PRN 12/05/16 Reported Meclizine Hcl 25 Mg Tablet 25 Mg PO Q8HRS PRN 12/05/16 Reported Hydrocodone-Apap 5-325 (Hydrocodone Bit/Acetaminophen) 1 Each Tablet 1 Tab PO PRN Q8HRS PRN 12/05/16 Reported Levemir (Insulin Detemir) 100 Unit/1 Ml Vial 20 Unit SQ BID 12/05/16 Reported Lasix (Furosemide) 20 Mg Tablet 3 Tab PO DAILY 12/05/16 Reported Cyclobenzaprine Hcl 10 Mg Tablet 1 Tab PO TID 12/05/16 Reported Fleet Enema (Na Phos,M-B/Na Phos,Di-Ba) 133 Ml Enema 133 Ml RC DAILY PRN 12/05/16 Reported Dulcolax (Bisacodyl) 10 Mg Supp.rect 10 Mg RC PRN DAILY PRN 12/05/16 Reported Cymbalta (Duloxetine Hcl) 60 Mg Capsule.dr 1 Cap PO BID 12/05/16 Reported Cozaar (Losartan Potassium) 100 Mg Tablet 100 Mg PO DAILY 12/05/16 Reported Coreg (Carvedilol) 12.5 Mg Tablet 1 Tab PO BID 12/05/16 Reported Colace (Docusate Sodium) 100 Mg Capsule 100 Mg PO DAILY 12/05/16 Reported Celebrex (Celecoxib) 200 Mg Capsule 1 Cap PO DAILY 12/05/16 Reported Aspirin 81 Mg Tab.chew 1 Tab PO DAILY 12/05/16 Reported Artificial Tears Drops (Dextran 70/Hypromellose/Pf) 1 Each Droperette 1 Each OP TID 12/05/16 Reported Acetaminophen 325 Mg Tablet 650 Mg PO Q6HRS 12/05/16 Reported Impression . ACUTE/CHRONIC HYPERCAPNIC RESP FAILURE/ COMPENSATED NOW BY ABG POSSIBLE PNEUMONIA MET ENCEPHALOPATHY / DEMENTIA HYPOGLYCEMIA ABNORMAL CXR WTH BASAL INFILTRATES/CONGESTION NORMAL EF ON RECENT ECHO Plan . NO NEED FOR BIPAP ABG COMPENSATED MAY BENEFIT FROM SLEEP STUDY OUTPT EMPIRIC ANTIBX FOLLOW CLINICAL COURSE AND MAKE FURTHER RECOMMENDATION AVOID SEDATIVES NO FURTHER RECOMMENDATIONS REBECCA DE LA O MD Dec 07, 2016 11:28
[2016-12-07] MEDS: QUEtiapine 25 MG TABLET. PO PRN ×2 (11:55→21:52)
[2016-12-07] MEDS: ENOXAPARIN 40 MG/0.4 ML SYRINGE. SQ SCH (11:56)
[2016-12-07] MEDS: VANCOMYCIN 1.5 GM in IV NORMAL SALINE 500ML BAG 500 ML IV SCH ×2 (12:06→23:57)
--- NOTE | 2016-12-07 14:24 | PDOC ---
PROGRESS NOTES Chief Complaint Chief Complaint Acute metabolic encephalopathy POA, in the background of hypoglycemia, hypothermia, baseline dementia, likely psych issues too hypoglycemia in Dm[facility], insulin req. acute acidosis with hypercarbia POA acute on chronic hypercarbia, Htn, poor control mod malnutrition Hypothermia, resolved Atelectasis possible PNA possible baseline psyche issues with bipolar disorder plan; neuro, pulm consulted cont vanco, dc ebenezer, add levaquin increase levemir 25u qhs, aspart 10u tid, assi ada diet 1 to 1 ob dc since this is pt's baseline mental status likely on prednisone 40mg daily with pulm PTOT dvt ppx haldol prn, on seroquel as home meds dc tmr to snf History of Present Illness History of Present Illness very agitated from time to time, not communicateble, yelling" getting the things around me" eats well, hyperglycemia Vitals Vitals Vital Signs Date Time Temp Pulse Resp B/P (MAP) Pulse Ox O2 Delivery O2 Flow Rate FiO2 12/07/16 12:56 100 Room Air 3.0 12/07/16 10:50 98.2 69 18 129/50 (76) 98.2 Physical Exam Physical Exam not communicateble, not answer 90% of the questions agitated General: Alert Heart: Regular rate, Normal S1, Normal S2 Lungs: Other (normal air entry) Abdomen: Normal bowel sounds, Soft Extremities: No clubbing, No cyanosis Skin: No rashes, No significant lesion Labs LABS Laboratory Tests Test 12/06/16 16:50 12/06/16 20:23 12/07/16 05:30 12/07/16 07:18 Glucose (Fingerstick) 316 mg/dL (70-99) 297 mg/dL (70-99) 189 mg/dL (70-99) White Blood Count 8.4 x10^3/uL (4.0-11.0) Red Blood Count 4.51 x10^6/uL (3.50-5.40) Hemoglobin 12.1 g/dL (12.0-15.5) Hematocrit 37.0 % (36.0-47.0) Mean Corpuscular Volume 82 fL (79-100) Mean Corpuscular Hemoglobin 27 pg (25-35) Mean Corpuscular Hemoglobin Concent 33 g/dL (31-37) Red Cell Distribution Width 17.1 % (11.5-14.5) Platelet Count 234 x10^3/uL (140-400) Neutrophils (%) (Auto) 64 % (31-73) Lymphocytes (%) (Auto) 22 % (24-48) Monocytes (%) (Auto) 12 % (0-9) Eosinophils (%) (Auto) 2 % (0-3) Basophils (%) (Auto) 1 % (0-3) Neutrophils # (Auto) 5.4 x10^3uL (1.8-7.7) Lymphocytes # (Auto) 1.8 x10^3/uL (1.0-4.8) Monocytes # (Auto) 1.0 x10^3/uL (0.0-1.1) Eosinophils # (Auto) 0.1 x10^3/uL (0.0-0.7) Basophils # (Auto) 0.1 x10^3/uL (0.0-0.2) Sodium Level 133 mmol/L (136-145) Potassium Level 4.5 mmol/L (3.5-5.1) Chloride Level 96 mmol/L (98-107) Carbon Dioxide Level 30 mmol/L (21-32) Anion Gap 7 (6-14) Blood Urea Nitrogen 27 mg/dL (7-20) Creatinine 1.1 mg/dL (0.6-1.0) Estimated GFR (Cockcroft-Gault) 58.7 Glucose Level 215 mg/dL (70-99) Calcium Level 9.3 mg/dL (8.5-10.1) Test 12/07/16 11:03 Glucose (Fingerstick) 177 mg/dL (70-99) Review of Systems Review of Systems no fever, chills, sob or chest pain Assessment and Plan Assessmemt and Plan Problems Medical Problems: (1) Altered mental status Status: Acute Problems: Comment Review of Relevant I have reviewed the following items halle (where applicable) has been applied. Labs Laboratory Tests Test 12/05/16 16:22 12/05/16 21:08 12/06/16 02:56 12/06/16 08:00 Glucose (Fingerstick) 331 mg/dL (70-99) 392 mg/dL (70-99) 295 mg/dL (70-99) O2 Saturation 90 % (92-99) Arterial Blood pH 7.38 (7.35-7.45) Arterial Blood pCO2 at Patient Temp 51 mmHg (35-46) Arterial Blood pO2 at Patient Temp 60 mmHg (65-108) Arterial Blood HCO3 30 mmol/L (21-28) Arterial Blood Base Excess 3 mmol/L (-3-3) FiO2 21 Test 12/06/16 08:05 12/06/16 10:40 12/06/16 10:47 12/06/16 16:50 Glucose (Fingerstick) 258 mg/dL (70-99) 291 mg/dL (70-99) 316 mg/dL (70-99) Erythrocyte Sedimentation Rate 30 (0-25) Vitamin B12 Level 1264 pg/mL (247-911) Serum Folate 9.63 ng/ml (3.2-20.0) Vancomycin Level Trough 18.0 mcg/mL (10.0-20.0) Vancomycin Last Dose Date 12/05/16 Vancomycin Last Dose Time 2300 Test 12/06/16 20:23 12/07/16 05:30 12/07/16 07:18 12/07/16 11:03 Glucose (Fingerstick) 297 mg/dL (70-99) 189 mg/dL (70-99) 177 mg/dL (70-99) White Blood Count 8.4 x10^3/uL (4.0-11.0) Red Blood Count 4.51 x10^6/uL (3.50-5.40) Hemoglobin 12.1 g/dL (12.0-15.5) Hematocrit 37.0 % (36.0-47.0) Mean Corpuscular Volume 82 fL (79-100) Mean Corpuscular Hemoglobin 27 pg (25-35) Mean Corpuscular Hemoglobin Concent 33 g/dL (31-37) Red Cell Distribution Width 17.1 % (11.5-14.5) Platelet Count 234 x10^3/uL (140-400) Neutrophils (%) (Auto) 64 % (31-73) Lymphocytes (%) (Auto) 22 % (24-48) Monocytes (%) (Auto) 12 % (0-9) Eosinophils (%) (Auto) 2 % (0-3) Basophils (%) (Auto) 1 % (0-3) Neutrophils # (Auto) 5.4 x10^3uL (1.8-7.7) Lymphocytes # (Auto) 1.8 x10^3/uL (1.0-4.8) Monocytes # (Auto) 1.0 x10^3/uL (0.0-1.1) Eosinophils # (Auto) 0.1 x10^3/uL (0.0-0.7) Basophils # (Auto) 0.1 x10^3/uL (0.0-0.2) Sodium Level 133 mmol/L (136-145) Potassium Level 4.5 mmol/L (3.5-5.1) Chloride Level 96 mmol/L (98-107) Carbon Dioxide Level 30 mmol/L (21-32) Anion Gap 7 (6-14) Blood Urea Nitrogen 27 mg/dL (7-20) Creatinine 1.1 mg/dL (0.6-1.0) Estimated GFR (Cockcroft-Gault) 58.7 Glucose Level 215 mg/dL (70-99) Calcium Level 9.3 mg/dL (8.5-10.1) Laboratory Tests Test 12/06/16 16:50 12/06/16 20:23 12/07/16 05:30 12/07/16 07:18 Glucose (Fingerstick) 316 mg/dL (70-99) 297 mg/dL (70-99) 189 mg/dL (70-99) White Blood Count 8.4 x10^3/uL (4.0-11.0) Red Blood Count 4.51 x10^6/uL (3.50-5.40) Hemoglobin 12.1 g/dL (12.0-15.5) Hematocrit 37.0 % (36.0-47.0) Mean Corpuscular Volume 82 fL (79-100) Mean Corpuscular Hemoglobin 27 pg (25-35) Mean Corpuscular Hemoglobin Concent 33 g/dL (31-37) Red Cell Distribution Width 17.1 % (11.5-14.5) Platelet Count 234 x10^3/uL (140-400) Neutrophils (%) (Auto) 64 % (31-73) Lymphocytes (%) (Auto) 22 % (24-48) Monocytes (%) (Auto) 12 % (0-9) Eosinophils (%) (Auto) 2 % (0-3) Basophils (%) (Auto) 1 % (0-3) Neutrophils # (Auto) 5.4 x10^3uL (1.8-7.7) Lymphocytes # (Auto) 1.8 x10^3/uL (1.0-4.8) Monocytes # (Auto) 1.0 x10^3/uL (0.0-1.1) Eosinophils # (Auto) 0.1 x10^3/uL (0.0-0.7) Basophils # (Auto) 0.1 x10^3/uL (0.0-0.2) Sodium Level 133 mmol/L (136-145) Potassium Level 4.5 mmol/L (3.5-5.1) Chloride Level 96 mmol/L (98-107) Carbon Dioxide Level 30 mmol/L (21-32) Anion Gap 7 (6-14) Blood Urea Nitrogen 27 mg/dL (7-20) Creatinine 1.1 mg/dL (0.6-1.0) Estimated GFR (Cockcroft-Gault) 58.7 Glucose Level 215 mg/dL (70-99) Calcium Level 9.3 mg/dL (8.5-10.1) Test 12/07/16 11:03 Glucose (Fingerstick) 177 mg/dL (70-99) Microbiology 12/04/16 Blood Culture - Preliminary, Resulted NO GROWTH AFTER 2 DAYS 12/04/16 Urine Culture - Final, Complete 12/04/16 Urine Culture Result 1 (ANTHONY) - Final, Complete Medications Current Medications Ammonia (Aromatic Spirit) (Amoply) 1 each STK-MED ONCE .ROUTE ; Start 12/04/16 at 18:02; Stop 12/04/16 at 18:03; Status DC Dextrose (Dextrose 50%-Water Syringe) 25 gm STK-MED ONCE IV ; Start 12/04/16 at 18:04; Stop 12/04/16 at 18:05; Status DC Dextrose/Sodium Chloride 1,000 ml @ 150 mls/hr 1X ONCE IV Last administered on 12/04/16 19:22; Start 12/04/16 at 19:15; Stop 12/05/16 at 01:54; Status DC Dextrose (Dextrose 50%-Water Syringe) 25 gm 1X ONCE IV Last administered on 19:09; Start 12/04/16 at 19:15; Stop 12/04/16 at 19:16; Status DC Dextrose (Dextrose 50%-Water Syringe) 25 gm STK-MED ONCE IV ; Start 12/04/16 at 19:15; Stop 12/04/16 at 19:16; Status DC Lorazepam (Ativan) 0.5 mg 1X ONCE IV Last administered on 12/04/16 21:23; Start 12/04/16 at 21:00; Stop 12/04/16 at 21:01; Status DC Ondansetron HCl (Zofran) 4 mg PRN Q8HRS PRN IV NAUSEA/VOMITING; Start 12/04/16 at 21:00; Stop 12/05/16 at 08:44; Status DC Hydrocortisone Sodium Succinate (Solu-CORTEF) 100 mg 1X ONCE IV ; Start at 22:30; Stop 12/04/16 at 22:30; Status DC Hydrocortisone Sodium Succinate (Solu-CORTEF) 100 mg Q8HRS IV ; Start 12/05/16 at 06:00; Stop 12/05/16 at 06:00; Status DC Methylprednisolone Sodium Succinate (SOLU-Medrol 125MG VIAL) 125 mg 1X ONCE IV Last administered on 12/04/16 23:30; Start 12/04/16 at 22:30; Stop 12/04/16 at 22:31; Status DC Prednisone (Prednisone) 40 mg DAILY PO Last administered on 12/07/16 08:24; Start 12/05/16 at 09:00 Albuterol/ Ipratropium (Duoneb) 3 ml Q4HRS W/A NEB Last administered on 11:37; Start 12/05/16 at 06:00; Stop 12/05/16 at 12:47; Status DC Budesonide (Pulmicort) 0.5 mg RTBID NEB Last administered on 12/05/16 07:43; Start 12/05/16 at 08:00; Stop 12/05/16 at 12:47; Status DC Budesonide (Pulmicort) 0.5 mg 1X ONCE NEB ; Start 12/04/16 at 23:00; Stop 12/04 at 23:01; Status DC Vancomycin HCl (Vanco Per Pharmacy) 1 each PRN DAILY PRN MC SEE COMMENTS Last administered on 12/06/16 14:21; Start 12/04/16 at 22:30 Azithromycin 500 mg/Sodium Chloride 250 ml @ 250 mls/hr 1X ONCE IV Last administered on 12/04/16 23:27; Start 12/04/16 at 23:00; Stop 12/04/16 at 23:59 ; Status DC Azithromycin 250 mg/Sodium Chloride 250 ml @ 250 mls/hr Q24H IV Last administered on 12/05/16 22:14; Start 12/05/16 at 23:00; Stop 12/06/16 at 12:48 ; Status DC Saliva Substitute (Biotene Moisturizing Mouth) 2 spray PRN Q15MIN PRN PO DRY MOUTH; Start 12/04/16 at 22:30 Artificial Tears (Artificial Tears) 1 drop PRN Q15MIN PRN OU DRY EYE; Start at 22:30 Vancomycin HCl 2 gm/Sodium Chloride 500 ml @ 250 mls/hr 1X ONCE IV Last administered on 12/04/16 23:30; Start 12/04/16 at 23:00; Stop 12/05/16 at 00:59 ; Status DC Vancomycin HCl 1.5 gm/Sodium Chloride 500 ml @ 250 mls/hr Q12H IV Last administered on 12/07/16 12:06; Start 12/05/16 at 11:00 Vancomycin HCl 1 each 1X ONCE MC Last administered on 12/06/16 10:30; Start 12/06/16 at 10:30; Stop 12/06/16 at 10:31; Status DC Ondansetron HCl (Zofran) 4 mg PRN Q6HRS PRN IV NAUSEA/VOMITING; Start 12/05/16 at 08:40; Stop 12/06/16 at 08:39; Status DC Labetalol HCl (Normodyne) 10 mg PRN Q2HR PRN IVP HYPERTENSION, SEE COMMENTS Last administered on 12/05/16 10:14; Start 12/05/16 at 08:45 Acetaminophen (Tylenol) 500 mg PRN Q6HRS PRN PO MILD PAIN / TEMP; Start at 08:45 Acetaminophen (Tylenol) 650 mg Q6HRS PO Last administered on 12/07/16 11:55; Start 12/05/16 at 12:00 Amlodipine Besylate (Norvasc) 10 mg DAILY PO Last administered on 12/07/16 08: 25; Start 12/05/16 at 09:00 Aspirin (Children'S Aspirin) 81 mg DAILYWBKFT PO Last administered on 08:24; Start 12/05/16 at 09:00 Bisacodyl (Dulcolax Supp) 10 mg PRN DAILY PRN RC CONSTIPATION; Start 12/05/16 at 08:45 Carvedilol (Coreg) 12.5 mg BIDWMEALS PO Last administered on 12/07/16 08:25; Start 12/05/16 at 09:00 Celecoxib (CeleBREX) 200 mg DAILY PO Last administered on 12/07/16 08:24; Start 12/05/16 at 09:00 Cyclobenzaprine HCl (Flexeril) 10 mg TID PO Last administered on 12/07/16 08: 24; Start 12/05/16 at 09:00 Diclofenac Sodium (Voltaren) 1 fabian TID PRN TP PAIN; Start 12/05/16 at 08:45 Docusate Sodium (Colace) 100 mg DAILY PO Last administered on 12/07/16 08:22; Start 12/05/16 at 09:00 Ergocalciferol (Vitamin D2) 50,000 unit WEEKLY PO ; Start 12/09/16 at 09:00 Furosemide (Lasix) 60 mg DAILY PO Last administered on 12/07/16 08:22; Start 12/05/16 at 09:00 Acetaminophen/ Hydrocodone Bitart (Lortab 5/325) 1 tab PRN Q8HRS PRN PO PAIN Last administered on 12/07/16 11:56; Start 12/05/16 at 08:45 Linagliptin (Tradjenta) 5 mg DAILY PO Last administered on 12/07/16 08:40; Start 12/05/16 at 09:00 Sodium Monofluorophosphate (Fleet Adult) 133 ml DAILY PRN RC CONSTIPATION; Start 12/05/16 at 08:45 Oxcarbazepine (Trileptal) 300 mg TID PO Last administered on 12/07/16 08:24; Start 12/05/16 at 09:00 Polyethylene Glycol (miraLAX PACKET) 17 gm DAILY PO Last administered on 08:25; Start 12/05/16 at 09:00 Quetiapine Fumarate (SEROquel) 25 mg Q6HRS PRN PO AGITATION Last administered on 12/07/16 11:55; Start 12/05/16 at 08:45 Artificial Tears (Artificial Tears) 1 drop TID OU Last administered on 08:32; Start 12/05/16 at 09:00 Duloxetine HCl (Cymbalta) 60 mg BID PO Last administered on 12/07/16 08:24; Start 12/05/16 at 09:00 Losartan Potassium (Cozaar) 100 mg DAILY PO Last administered on 12/07/16 08: 23; Start 12/05/16 at 09:00 Al Hydroxide/Mg Hydroxide (Mylanta Plus Xs) 30 ml PRN Q4HRS PRN PO HEARTBURN / GAS; Start 12/05/16 at 09:00 Magnesium Hydroxide (Milk Of Magnesia) 2,400 mg PRN DAILY PRN PO CONSTIPATION; Start 12/05/16 at 09:00 Meclizine HCl (Antivert) 25 mg PRN Q8HRS PRN PO DIZZINESS; Start 12/05/16 at 09 :00 Potassium Chloride (Klor-Con) 10 meq DAILYWBKFT PO Last administered on 08:22; Start 12/05/16 at 09:00 Insulin Aspart (NovoLOG) 0-9 UNITS TIDWMEALS SQ Last administered on 12/07/16 12:03; Start 12/05/16 at 12:00 Dextrose (Dextrose 50%-Water Syringe) 12.5 gm PRN Q15MIN PRN IV SEE COMMENTS; Start 12/05/16 at 08:45 Enoxaparin Sodium (Lovenox 40mg Syringe) 40 mg Q24H SQ Last administered on 11:56; Start 12/05/16 at 11:00 Albuterol/ Ipratropium (Duoneb) 3 ml PRN Q4HRS PRN NEB SHORTNESS OF BREATH Last administered on 12/06/16 19:18; Start 12/06/16 at 10:00 Insulin Detemir (Levemir) 10 units 1X ONCE SQ Last administered on 12/05/16 22:14; Start 12/05/16 at 22:00; Stop 12/05/16 at 22:01; Status DC Insulin Aspart (NovoLOG) 15 units 1X ONCE SQ Last administered on 12/05/16 22 :13; Start 12/05/16 at 22:00; Stop 12/05/16 at 22:01; Status DC Insulin Detemir (Levemir) 20 units QHS SQ Last administered on 12/06/16 21:03 ; Start 12/06/16 at 21:00; Stop 12/07/16 at 09:59; Status DC Insulin Aspart (NovoLOG) 8 units TIDAC SQ Last administered on 12/07/16 08:39 ; Start 12/06/16 at 11:30; Stop 12/07/16 at 09:59; Status DC Haloperidol Lactate (Haldol) 1 mg PRN Q6HRS PRN IVP AGITATION; Start 12/06/16 at 11:15 Levofloxacin/ Dextrose (Levaquin Per Pharmacy) 1 each PRN DAILY PRN MC SEE COMMENTS; Start 12/06/16 at 13:00; Status UNV Levofloxacin/ Dextrose 100 ml @ 100 mls/hr Q24H IV Last administered on 14:34; Start 12/06/16 at 14:00 Insulin Aspart (NovoLOG) 10 units TIDAC SQ Last administered on 12/07/16 12:04 ; Start 12/07/16 at 11:30 Insulin Detemir (Levemir) 25 units QHS SQ ; Start 12/07/16 at 21:00 Active Scripts Active Reported Novolog Flexpen (Insulin Aspart) 100 Unit/1 Ml Insuln.pen 15 Unit SQ TID Novolog Flexpen (Insulin Aspart) 100 Unit/1 Ml Insuln.pen 1 Unit SQ Voltaren (Diclofenac Sodium) 100 Gm Gel..gram. 1 Gm TP TID PRN Vitamin D2 (Ergocalciferol (Vitamin D2)) 50,000 Unit Capsule 1 Cap PO WEEKLY Trileptal (Oxcarbazepine) 300 Mg Tablet 300 Mg PO TID Tradjenta (Linagliptin) 5 Mg Tablet 1 Tab PO DAILY Seroquel (Quetiapine Fumarate) 25 Mg Tablet 1 Tab PO Q6HRS PRN Potassium Chloride 10 Meq Capsule.er 10 Meq PO DAILY Norvasc (Amlodipine Besylate) 10 Mg Tablet 10 Mg PO DAILY Alum-Mag Hydroxide-Simeth Liq (Mag Hydrox/Al Hydrox/Simeth) 360 Ml Oral.susp 360 Ml PO Q4HRS PRN Miralax (Polyethylene Glycol 3350) 17 Gm Powd.pack 1 Packet PO DAILY Milk Of Magnesia (Magnesium Hydroxide) 2,400 Mg/10 Ml Oral.susp 2,400 Mg PO DAILY PRN Meclizine Hcl 25 Mg Tablet 25 Mg PO Q8HRS PRN Hydrocodone-Apap 5-325 (Hydrocodone Bit/Acetaminophen) 1 Each Tablet 1 Tab PO PRN Q8HRS PRN Levemir (Insulin Detemir) 100 Unit/1 Ml Vial 20 Unit SQ BID Lasix (Furosemide) 20 Mg Tablet 3 Tab PO DAILY Cyclobenzaprine Hcl 10 Mg Tablet 1 Tab PO TID Fleet Enema (Na Phos,M-B/Na Phos,Di-Ba) 133 Ml Enema 133 Ml RC DAILY PRN Dulcolax (Bisacodyl) 10 Mg Supp.rect 10 Mg RC PRN DAILY PRN Cymbalta (Duloxetine Hcl) 60 Mg Capsule.dr 1 Cap PO BID Cozaar (Losartan Potassium) 100 Mg Tablet 100 Mg PO DAILY Coreg (Carvedilol) 12.5 Mg Tablet 1 Tab PO BID Colace (Docusate Sodium) 100 Mg Capsule 100 Mg PO DAILY Celebrex (Celecoxib) 200 Mg Capsule 1 Cap PO DAILY Aspirin 81 Mg Tab.chew 1 Tab PO DAILY Artificial Tears Drops (Dextran 70/Hypromellose/Pf) 1 Each Droperette 1 Each OP TID Acetaminophen 325 Mg Tablet 650 Mg PO Q6HRS Vitals/I & O Vital Sign - Last 24 Hours 12/06/16 12/06/16 12/06/16 12/06/16 14:41 15:00 17:01 17:10 Temp 97.7 97.7 Pulse 89 89 Resp 22 B/P (MAP) 144/69 (94) 144/69 Pulse Ox 96 95 96 O2 Delivery Room Air Room Air Nasal Cannula O2 Flow Rate 1.0 12/06/16 12/06/16 12/06/16 12/06/16 19:05 19:44 19:59 23:00 Temp 97.9 98.4 97.9 98.4 Pulse 90 84 Resp 18 18 B/P (MAP) 129/62 (84) 154/78 (103) Pulse Ox 100 98 O2 Delivery Nasal Cannula Nasal Cannula Nasal Cannula Nasal Cannula O2 Flow Rate 2.0 3.0 3.0 3.0 12/07/16 12/07/16 12/07/16 12/07/16 02:41 05:58 07:00 08:00 Temp 98.1 98.1 98.1 98.1 Pulse 88 81 85 Resp 18 18 B/P (MAP) 192/78 (116) 154/68 (96) 147/76 (99) Pulse Ox 99 98 O2 Delivery Nasal Cannula Nasal Cannula Room Air O2 Flow Rate 3.0 3.0 12/07/16 12/07/16 12/07/16 12/07/16 08:23 08:25 08:25 10:50 Temp 98.2 98.2 Pulse 85 85 85 69 Resp 18 B/P (MAP) 147/76 147/73 147/76 129/50 (76) Pulse Ox 100 O2 Delivery Nasal Cannula O2 Flow Rate 3.0 12/07/16 12/07/16 11:56 12:56 Pulse Ox 100 100 O2 Delivery Room Air Room Air O2 Flow Rate 3.0 3.0 Intake and Output 12/06/16 12/06/16 12/07/16 14:59 22:59 06:59 Intake Total 740 ml 550 ml 50 ml Balance 740 ml 550 ml 50 ml CHANEL WETZEL MD Dec 07, 2016 14:24
[2016-12-07 15:00] VITALS: BP 143/53
[2016-12-07 19:10] VITALS: BP 147/99
[2016-12-07] MEDS ORDERED: INSULIN DETEMIR 300 UNITS/3 ML INSULN.PEN. SQ SCH (21:00)
[2016-12-08] MEDS: ACETAMINOPHEN 325 MG TABLET. PO SCH (06:30)
[2016-12-08 07:00] VITALS: BP 152/49
[2016-12-08] MEDS: INSULIN ASPART 300 UNITS/3 ML INSULN.PEN SQ SCH ×2 (07:30→08:00)
[2016-12-08] MEDS: HYDROcodone/APAP 5/325MG 1 TAB TABLET PO PRN (08:14)
[2016-12-08] MEDS: CELECOXIB 200 MG CAPSULE. PO SCH (08:16)
[2016-12-08] MEDS: QUEtiapine 25 MG TABLET. PO PRN (08:16)
[2016-12-08] MEDS: FUROSEMIDE 20 MG TABLET PO SCH (08:16)
[2016-12-08] MEDS: POTASSIUM CHLORIDE 10 MEQ TABLET.ER. PO SCH (08:16)
[2016-12-08] MEDS: predniSONE 20 MG TABLET PO SCH (08:16)
[2016-12-08] MEDS: DULoxetine HCL 30 MG CAPSULE.DR PO SCH (08:17)
[2016-12-08] MEDS: CYCLOBENZAPRINE 10 MG TABLET. PO SCH (08:17)
[2016-12-08] MEDS: ASPIRIN CHEWABLE 81 MG TABLET. PO SCH (08:17)
[2016-12-08] MEDS: LINAGLIPTIN 5 MG TABLET PO SCH (08:17)
[2016-12-08] MEDS: CARVEDILOL 12.5 MG TABLET. PO SCH (08:18)
[2016-12-08] MEDS: amLODIPine BESYLATE 10 MG TABLET PO SCH (08:18)
[2016-12-08] MEDS: LOSARTAN POTASSIUM 50 MG TABLET. PO SCH (08:18)
[2016-12-08] MEDS: DOCUSATE SODIUM 100 MG CAPSULE. PO SCH (08:19)
[2016-12-08] MEDS: POLYETHYLENE GLYCOL 3350 17 GM PACKET. PO SCH (08:20)
[2016-12-08] MEDS: POLYVINYL ALCOHOL 1.4% OPHTH SOLUTION 15ML BOTTLE. OU SCH (08:37)
[2016-12-08] MEDS: OXcarbazepine 300 MG TABLET PO SCH (09:42)
--- NOTE | 2016-12-08 09:57 | PDOC ---
PULMONARY PROGRESS NOTES Subjective more awake Vitals Vital Signs Date Time Temp Pulse Resp B/P (MAP) Pulse Ox O2 Delivery O2 Flow Rate FiO2 12/08/16 09:15 98 Room Air 3.0 12/08/16 08:18 71 152/49 12/08/16 07:00 99.0 18 99.0 General: No acute distress Lungs: Other (normal air entry) Cardiovascular: S1 Abdomen: Soft Extremities: No Edema Skin: Warm Labs Laboratory Tests Test 12/06/16 10:40 12/06/16 10:47 12/06/16 16:50 12/06/16 20:23 Erythrocyte Sedimentation Rate 30 (0-25) Vitamin B12 Level 1264 pg/mL (247-911) Serum Folate 9.63 ng/ml (3.2-20.0) Vancomycin Level Trough 18.0 mcg/mL (10.0-20.0) Vancomycin Last Dose Date 12/05/16 Vancomycin Last Dose Time 2300 Glucose (Fingerstick) 291 mg/dL (70-99) 316 mg/dL (70-99) 297 mg/dL (70-99) Test 12/07/16 05:30 12/07/16 07:18 12/07/16 11:03 12/07/16 16:36 White Blood Count 8.4 x10^3/uL (4.0-11.0) Red Blood Count 4.51 x10^6/uL (3.50-5.40) Hemoglobin 12.1 g/dL (12.0-15.5) Hematocrit 37.0 % (36.0-47.0) Mean Corpuscular Volume 82 fL (79-100) Mean Corpuscular Hemoglobin 27 pg (25-35) Mean Corpuscular Hemoglobin Concent 33 g/dL (31-37) Red Cell Distribution Width 17.1 % (11.5-14.5) Platelet Count 234 x10^3/uL (140-400) Neutrophils (%) (Auto) 64 % (31-73) Lymphocytes (%) (Auto) 22 % (24-48) Monocytes (%) (Auto) 12 % (0-9) Eosinophils (%) (Auto) 2 % (0-3) Basophils (%) (Auto) 1 % (0-3) Neutrophils # (Auto) 5.4 x10^3uL (1.8-7.7) Lymphocytes # (Auto) 1.8 x10^3/uL (1.0-4.8) Monocytes # (Auto) 1.0 x10^3/uL (0.0-1.1) Eosinophils # (Auto) 0.1 x10^3/uL (0.0-0.7) Basophils # (Auto) 0.1 x10^3/uL (0.0-0.2) Sodium Level 133 mmol/L (136-145) Potassium Level 4.5 mmol/L (3.5-5.1) Chloride Level 96 mmol/L (98-107) Carbon Dioxide Level 30 mmol/L (21-32) Anion Gap 7 (6-14) Blood Urea Nitrogen 27 mg/dL (7-20) Creatinine 1.1 mg/dL (0.6-1.0) Estimated GFR (Cockcroft-Gault) 58.7 Glucose Level 215 mg/dL (70-99) Calcium Level 9.3 mg/dL (8.5-10.1) Glucose (Fingerstick) 189 mg/dL (70-99) 177 mg/dL (70-99) 67 mg/dL (70-99) Test 12/07/16 17:47 12/07/16 20:56 12/08/16 07:07 Glucose (Fingerstick) 103 mg/dL (70-99) 180 mg/dL (70-99) 75 mg/dL (70-99) Laboratory Tests Test 12/07/16 11:03 12/07/16 16:36 12/07/16 17:47 12/07/16 20:56 Glucose (Fingerstick) 177 mg/dL (70-99) 67 mg/dL (70-99) 103 mg/dL (70-99) 180 mg/dL (70-99) Test 12/08/16 07:07 Glucose (Fingerstick) 75 mg/dL (70-99) Medications Active Scripts Medications Dose Route/Sig Max Daily Dose Days Date Category Novolog Flexpen (Insulin Aspart) 100 Unit/1 Ml Insuln.pen 15 Unit SQ TID 12/05/16 Reported Novolog Flexpen (Insulin Aspart) 100 Unit/1 Ml Insuln.pen 1 Unit SQ 12/05/16 Reported Voltaren (Diclofenac Sodium) 100 Gm Gel..gram. 1 Gm TP TID PRN 12/05/16 Reported Vitamin D2 (Ergocalciferol (Vitamin D2)) 50,000 Unit Capsule 1 Cap PO WEEKLY 12/05/16 Reported Trileptal (Oxcarbazepine) 300 Mg Tablet 300 Mg PO TID 12/05/16 Reported Tradjenta (Linagliptin) 5 Mg Tablet 1 Tab PO DAILY 12/05/16 Reported Seroquel (Quetiapine Fumarate) 25 Mg Tablet 1 Tab PO Q6HRS PRN 12/05/16 Reported Potassium Chloride 10 Meq Capsule.er 10 Meq PO DAILY 12/05/16 Reported Norvasc (Amlodipine Besylate) 10 Mg Tablet 10 Mg PO DAILY 12/05/16 Reported Alum-Mag Hydroxide-Simeth Liq (Mag Hydrox/Al Hydrox/Simeth) 360 Ml Oral.susp 360 Ml PO Q4HRS PRN 12/05/16 Reported Miralax (Polyethylene Glycol 3350) 17 Gm Powd.pack 1 Packet PO DAILY 12/05/16 Reported Milk Of Magnesia (Magnesium Hydroxide) 2,400 Mg/10 Ml Oral.susp 2,400 Mg PO DAILY PRN 12/05/16 Reported Meclizine Hcl 25 Mg Tablet 25 Mg PO Q8HRS PRN 12/05/16 Reported Hydrocodone-Apap 5-325 (Hydrocodone Bit/Acetaminophen) 1 Each Tablet 1 Tab PO PRN Q8HRS PRN 12/05/16 Reported Levemir (Insulin Detemir) 100 Unit/1 Ml Vial 20 Unit SQ BID 12/05/16 Reported Lasix (Furosemide) 20 Mg Tablet 3 Tab PO DAILY 12/05/16 Reported Cyclobenzaprine Hcl 10 Mg Tablet 1 Tab PO TID 12/05/16 Reported Fleet Enema (Na Phos,M-B/Na Phos,Di-Ba) 133 Ml Enema 133 Ml RC DAILY PRN 12/05/16 Reported Dulcolax (Bisacodyl) 10 Mg Supp.rect 10 Mg RC PRN DAILY PRN 12/05/16 Reported Cymbalta (Duloxetine Hcl) 60 Mg Capsule.dr 1 Cap PO BID 12/05/16 Reported Cozaar (Losartan Potassium) 100 Mg Tablet 100 Mg PO DAILY 12/05/16 Reported Coreg (Carvedilol) 12.5 Mg Tablet 1 Tab PO BID 12/05/16 Reported Colace (Docusate Sodium) 100 Mg Capsule 100 Mg PO DAILY 12/05/16 Reported Celebrex (Celecoxib) 200 Mg Capsule 1 Cap PO DAILY 12/05/16 Reported Aspirin 81 Mg Tab.chew 1 Tab PO DAILY 12/05/16 Reported Artificial Tears Drops (Dextran 70/Hypromellose/Pf) 1 Each Droperette 1 Each OP TID 12/05/16 Reported Acetaminophen 325 Mg Tablet 650 Mg PO Q6HRS 12/05/16 Reported Impression . ACUTE/CHRONIC HYPERCAPNIC RESP FAILURE/ COMPENSATED NOW BY ABG POSSIBLE PNEUMONIA MET ENCEPHALOPATHY / DEMENTIA HYPOGLYCEMIA ABNORMAL CXR WTH BASAL INFILTRATES/CONGESTION NORMAL EF ON RECENT ECHO Plan . NO NEED FOR BIPAP ABG COMPENSATED MAY BENEFIT FROM SLEEP STUDY OUTPT EMPIRIC ANTIBX FOLLOW CLINICAL COURSE AND MAKE FURTHER RECOMMENDATION AVOID SEDATIVES NO FURTHER RECOMMENDATIONS REBECCA DE LA O MD Dec 08, 2016 09:57
[2016-12-08 11:00] VITALS: BP 176/35
[2016-12-08] MEDS: ENOXAPARIN 40 MG/0.4 ML SYRINGE. SQ SCH (11:22)
[2016-12-08] MEDS ORDERED: INSULIN ASPART 300 UNITS/3 ML INSULN.PEN SQ SCH (11:30)
--- NOTE | 2016-12-08 11:33 | PDOC ---
PROGRESS NOTES Assessment Problems Medical Problems: (1) Altered mental status Status: Acute Metabolic encephalopathy with prior dementia Chronic paraparesis, wheelchair-bound, related to diabetic neuropathy Plan Agree with discharge back to [facility] Follow-up with neurology as needed Subjective No other complaints Objective Vital Signs Date Time Temp Pulse Resp B/P (MAP) Pulse Ox O2 Delivery O2 Flow Rate FiO2 12/08/16 11:00 99.1 92 20 176/35 (82) 100 Nasal Cannula 3.0 99.1 Intake and Output 12/08/16 07:00 Intake Total 820 ml Balance 820 ml Intake Oral 820 ml # Voids 5 PHYSICAL EXAM Alert. Oriented to "Hospital" and person. Says that there is water all over her in her room PERRL. EOMI. CN: no focal findings. Muscle tone: normal. Muscle strength: 2/5 legs, 4/5 arms DTR: 0+ Plantar reflex: Silent Gait: not examined in bed. Sensory exam: no abnormal findings. No cerebellar signs elicited. Review of Relevant I have reviewed the following items halle (where applicable) has been applied. Labs Laboratory Tests Test 12/06/16 16:50 12/06/16 20:23 12/07/16 05:30 12/07/16 07:18 Glucose (Fingerstick) 316 mg/dL (70-99) 297 mg/dL (70-99) 189 mg/dL (70-99) White Blood Count 8.4 x10^3/uL (4.0-11.0) Red Blood Count 4.51 x10^6/uL (3.50-5.40) Hemoglobin 12.1 g/dL (12.0-15.5) Hematocrit 37.0 % (36.0-47.0) Mean Corpuscular Volume 82 fL (79-100) Mean Corpuscular Hemoglobin 27 pg (25-35) Mean Corpuscular Hemoglobin Concent 33 g/dL (31-37) Red Cell Distribution Width 17.1 % (11.5-14.5) Platelet Count 234 x10^3/uL (140-400) Neutrophils (%) (Auto) 64 % (31-73) Lymphocytes (%) (Auto) 22 % (24-48) Monocytes (%) (Auto) 12 % (0-9) Eosinophils (%) (Auto) 2 % (0-3) Basophils (%) (Auto) 1 % (0-3) Neutrophils # (Auto) 5.4 x10^3uL (1.8-7.7) Lymphocytes # (Auto) 1.8 x10^3/uL (1.0-4.8) Monocytes # (Auto) 1.0 x10^3/uL (0.0-1.1) Eosinophils # (Auto) 0.1 x10^3/uL (0.0-0.7) Basophils # (Auto) 0.1 x10^3/uL (0.0-0.2) Sodium Level 133 mmol/L (136-145) Potassium Level 4.5 mmol/L (3.5-5.1) Chloride Level 96 mmol/L (98-107) Carbon Dioxide Level 30 mmol/L (21-32) Anion Gap 7 (6-14) Blood Urea Nitrogen 27 mg/dL (7-20) Creatinine 1.1 mg/dL (0.6-1.0) Estimated GFR (Cockcroft-Gault) 58.7 Glucose Level 215 mg/dL (70-99) Calcium Level 9.3 mg/dL (8.5-10.1) Test 12/07/16 11:03 12/07/16 16:36 12/07/16 17:47 12/07/16 20:56 Glucose (Fingerstick) 177 mg/dL (70-99) 67 mg/dL (70-99) 103 mg/dL (70-99) 180 mg/dL (70-99) Test 12/08/16 07:07 Glucose (Fingerstick) 75 mg/dL (70-99) Laboratory Tests Test 12/07/16 16:36 12/07/16 17:47 12/07/16 20:56 12/08/16 07:07 Glucose (Fingerstick) 67 mg/dL (70-99) 103 mg/dL (70-99) 180 mg/dL (70-99) 75 mg/dL (70-99) Microbiology 12/04/16 Blood Culture - Preliminary, Resulted NO GROWTH AFTER 3 DAYS 12/04/16 Urine Culture - Final, Complete 12/04/16 Urine Culture Result 1 (ANTHONY) - Final, Complete Medications Current Medications Ammonia (Aromatic Spirit) (Amoply) 1 each STK-MED ONCE .ROUTE ; Start 12/04/16 at 18:02; Stop 12/04/16 at 18:03; Status DC Dextrose (Dextrose 50%-Water Syringe) 25 gm STK-MED ONCE IV ; Start 12/04/16 at 18:04; Stop 12/04/16 at 18:05; Status DC Dextrose/Sodium Chloride 1,000 ml @ 150 mls/hr 1X ONCE IV Last administered on 12/04/16 19:22; Start 12/04/16 at 19:15; Stop 12/05/16 at 01:54; Status DC Dextrose (Dextrose 50%-Water Syringe) 25 gm 1X ONCE IV Last administered on 19:09; Start 12/04/16 at 19:15; Stop 12/04/16 at 19:16; Status DC Dextrose (Dextrose 50%-Water Syringe) 25 gm STK-MED ONCE IV ; Start 12/04/16 at 19:15; Stop 12/04/16 at 19:16; Status DC Lorazepam (Ativan) 0.5 mg 1X ONCE IV Last administered on 12/04/16 21:23; Start 12/04/16 at 21:00; Stop 12/04/16 at 21:01; Status DC Ondansetron HCl (Zofran) 4 mg PRN Q8HRS PRN IV NAUSEA/VOMITING; Start 12/04/16 at 21:00; Stop 12/05/16 at 08:44; Status DC Hydrocortisone Sodium Succinate (Solu-CORTEF) 100 mg 1X ONCE IV ; Start at 22:30; Stop 12/04/16 at 22:30; Status DC Hydrocortisone Sodium Succinate (Solu-CORTEF) 100 mg Q8HRS IV ; Start 12/05/16 at 06:00; Stop 12/05/16 at 06:00; Status DC Methylprednisolone Sodium Succinate (SOLU-Medrol 125MG VIAL) 125 mg 1X ONCE IV Last administered on 12/04/16 23:30; Start 12/04/16 at 22:30; Stop 12/04/16 at 22:31; Status DC Prednisone (Prednisone) 40 mg DAILY PO Last administered on 12/08/16 08:16; Start 12/05/16 at 09:00; Stop 12/08/16 at 10:29; Status DC Albuterol/ Ipratropium (Duoneb) 3 ml Q4HRS W/A NEB Last administered on 11:37; Start 12/05/16 at 06:00; Stop 12/05/16 at 12:47; Status DC Budesonide (Pulmicort) 0.5 mg RTBID NEB Last administered on 12/05/16 07:43; Start 12/05/16 at 08:00; Stop 12/05/16 at 12:47; Status DC Budesonide (Pulmicort) 0.5 mg 1X ONCE NEB ; Start 12/04/16 at 23:00; Stop 12/04 at 23:01; Status DC Vancomycin HCl (Vanco Per Pharmacy) 1 each PRN DAILY PRN MC SEE COMMENTS Last administered on 12/06/16 14:21; Start 12/04/16 at 22:30 Azithromycin 500 mg/Sodium Chloride 250 ml @ 250 mls/hr 1X ONCE IV Last administered on 12/04/16 23:27; Start 12/04/16 at 23:00; Stop 12/04/16 at 23:59 ; Status DC Azithromycin 250 mg/Sodium Chloride 250 ml @ 250 mls/hr Q24H IV Last administered on 12/05/16 22:14; Start 12/05/16 at 23:00; Stop 12/06/16 at 12:48 ; Status DC Saliva Substitute (Biotene Moisturizing Mouth) 2 spray PRN Q15MIN PRN PO DRY MOUTH; Start 12/04/16 at 22:30 Artificial Tears (Artificial Tears) 1 drop PRN Q15MIN PRN OU DRY EYE; Start at 22:30 Vancomycin HCl 2 gm/Sodium Chloride 500 ml @ 250 mls/hr 1X ONCE IV Last administered on 12/04/16 23:30; Start 12/04/16 at 23:00; Stop 12/05/16 at 00:59 ; Status DC Vancomycin HCl 1.5 gm/Sodium Chloride 500 ml @ 250 mls/hr Q12H IV Last administered on 12/07/16 23:57; Start 12/05/16 at 11:00; Stop 12/08/16 at 10:29 ; Status DC Vancomycin HCl 1 each 1X ONCE MC Last administered on 12/06/16 10:30; Start 12/06/16 at 10:30; Stop 12/06/16 at 10:31; Status DC Ondansetron HCl (Zofran) 4 mg PRN Q6HRS PRN IV NAUSEA/VOMITING; Start 12/05/16 at 08:40; Stop 12/06/16 at 08:39; Status DC Labetalol HCl (Normodyne) 10 mg PRN Q2HR PRN IVP HYPERTENSION, SEE COMMENTS Last administered on 12/05/16 10:14; Start 12/05/16 at 08:45 Acetaminophen (Tylenol) 500 mg PRN Q6HRS PRN PO MILD PAIN / TEMP; Start at 08:45 Acetaminophen (Tylenol) 650 mg Q6HRS PO Last administered on 12/07/16 17:43; Start 12/05/16 at 12:00 Amlodipine Besylate (Norvasc) 10 mg DAILY PO Last administered on 12/08/16 08: 18; Start 12/05/16 at 09:00 Aspirin (Children'S Aspirin) 81 mg DAILYWBKFT PO Last administered on 08:17; Start 12/05/16 at 09:00 Bisacodyl (Dulcolax Supp) 10 mg PRN DAILY PRN RC CONSTIPATION; Start 12/05/16 at 08:45 Carvedilol (Coreg) 12.5 mg BIDWMEALS PO Last administered on 12/08/16 08:18; Start 12/05/16 at 09:00 Celecoxib (CeleBREX) 200 mg DAILY PO Last administered on 12/08/16 08:16; Start 12/05/16 at 09:00 Cyclobenzaprine HCl (Flexeril) 10 mg TID PO Last administered on 12/08/16 08: 17; Start 12/05/16 at 09:00 Diclofenac Sodium (Voltaren) 1 fabian TID PRN TP PAIN; Start 12/05/16 at 08:45 Docusate Sodium (Colace) 100 mg DAILY PO Last administered on 12/07/16 08:22; Start 12/05/16 at 09:00 Ergocalciferol (Vitamin D2) 50,000 unit WEEKLY PO ; Start 12/09/16 at 09:00 Furosemide (Lasix) 60 mg DAILY PO Last administered on 12/08/16 08:16; Start 12/05/16 at 09:00 Acetaminophen/ Hydrocodone Bitart (Lortab 5/325) 1 tab PRN Q8HRS PRN PO PAIN Last administered on 12/08/16 08:14; Start 12/05/16 at 08:45 Linagliptin (Tradjenta) 5 mg DAILY PO Last administered on 12/08/16 08:17; Start 12/05/16 at 09:00 Sodium Monofluorophosphate (Fleet Adult) 133 ml DAILY PRN RC CONSTIPATION; Start 12/05/16 at 08:45 Oxcarbazepine (Trileptal) 300 mg TID PO Last administered on 12/08/16 09:42; Start 12/05/16 at 09:00 Polyethylene Glycol (miraLAX PACKET) 17 gm DAILY PO Last administered on 08:20; Start 12/05/16 at 09:00 Quetiapine Fumarate (SEROquel) 25 mg Q6HRS PRN PO AGITATION Last administered on 12/08/16 08:16; Start 12/05/16 at 08:45 Artificial Tears (Artificial Tears) 1 drop TID OU Last administered on 08:37; Start 12/05/16 at 09:00 Duloxetine HCl (Cymbalta) 60 mg BID PO Last administered on 12/08/16 08:17; Start 12/05/16 at 09:00 Losartan Potassium (Cozaar) 100 mg DAILY PO Last administered on 12/08/16 08: 18; Start 12/05/16 at 09:00 Al Hydroxide/Mg Hydroxide (Mylanta Plus Xs) 30 ml PRN Q4HRS PRN PO HEARTBURN / GAS; Start 12/05/16 at 09:00 Magnesium Hydroxide (Milk Of Magnesia) 2,400 mg PRN DAILY PRN PO CONSTIPATION; Start 12/05/16 at 09:00 Meclizine HCl (Antivert) 25 mg PRN Q8HRS PRN PO DIZZINESS; Start 12/05/16 at 09 :00 Potassium Chloride (Klor-Con) 10 meq DAILYWBKFT PO Last administered on 08:16; Start 12/05/16 at 09:00 Insulin Aspart (NovoLOG) 0-9 UNITS TIDWMEALS SQ Last administered on 12/07/16 12:03; Start 12/05/16 at 12:00 Dextrose (Dextrose 50%-Water Syringe) 12.5 gm PRN Q15MIN PRN IV SEE COMMENTS; Start 12/05/16 at 08:45 Enoxaparin Sodium (Lovenox 40mg Syringe) 40 mg Q24H SQ Last administered on 11:22; Start 12/05/16 at 11:00 Albuterol/ Ipratropium (Duoneb) 3 ml PRN Q4HRS PRN NEB SHORTNESS OF BREATH Last administered on 12/06/16 19:18; Start 12/06/16 at 10:00 Insulin Detemir (Levemir) 10 units 1X ONCE SQ Last administered on 12/05/16 22:14; Start 12/05/16 at 22:00; Stop 12/05/16 at 22:01; Status DC Insulin Aspart (NovoLOG) 15 units 1X ONCE SQ Last administered on 12/05/16 22 :13; Start 12/05/16 at 22:00; Stop 12/05/16 at 22:01; Status DC Insulin Detemir (Levemir) 20 units QHS SQ Last administered on 12/06/16 21:03 ; Start 12/06/16 at 21:00; Stop 12/07/16 at 09:59; Status DC Insulin Aspart (NovoLOG) 8 units TIDAC SQ Last administered on 12/07/16 08:39 ; Start 12/06/16 at 11:30; Stop 12/07/16 at 09:59; Status DC Haloperidol Lactate (Haldol) 1 mg PRN Q6HRS PRN IVP AGITATION Last administered on 12/07/16 17:44; Start 12/06/16 at 11:15 Levofloxacin/ Dextrose (Levaquin Per Pharmacy) 1 each PRN DAILY PRN MC SEE COMMENTS; Start 12/06/16 at 13:00; Status UNV Levofloxacin/ Dextrose 100 ml @ 100 mls/hr Q24H IV Last administered on 14:23; Start 12/06/16 at 14:00; Stop 12/08/16 at 10:29; Status DC Insulin Aspart (NovoLOG) 10 units TIDAC SQ Last administered on 12/07/16 12:04 ; Start 12/07/16 at 11:30; Stop 12/08/16 at 09:03; Status DC Insulin Detemir (Levemir) 25 units QHS SQ Last administered on 12/07/16 22:01 ; Start 12/07/16 at 21:00; Stop 12/08/16 at 09:03; Status DC Insulin Aspart (NovoLOG) 8 units TIDAC SQ ; Start 12/08/16 at 11:30 Insulin Detemir (Levemir) 22 units QHS SQ ; Start 12/08/16 at 21:00 Levofloxacin (Levaquin) 500 mg DAILY06 PO Last administered on 12/08/16 11:22 ; Start 12/08/16 at 11:00 Active Scripts Active Reported Novolog Flexpen (Insulin Aspart) 100 Unit/1 Ml Insuln.pen 15 Unit SQ TID Novolog Flexpen (Insulin Aspart) 100 Unit/1 Ml Insuln.pen 1 Unit SQ Voltaren (Diclofenac Sodium) 100 Gm Gel..gram. 1 Gm TP TID PRN Vitamin D2 (Ergocalciferol (Vitamin D2)) 50,000 Unit Capsule 1 Cap PO WEEKLY Trileptal (Oxcarbazepine) 300 Mg Tablet 300 Mg PO TID Tradjenta (Linagliptin) 5 Mg Tablet 1 Tab PO DAILY Seroquel (Quetiapine Fumarate) 25 Mg Tablet 1 Tab PO Q6HRS PRN Potassium Chloride 10 Meq Capsule.er 10 Meq PO DAILY Norvasc (Amlodipine Besylate) 10 Mg Tablet 10 Mg PO DAILY Alum-Mag Hydroxide-Simeth Liq (Mag Hydrox/Al Hydrox/Simeth) 360 Ml Oral.susp 360 Ml PO Q4HRS PRN Miralax (Polyethylene Glycol 3350) 17 Gm Powd.pack 1 Packet PO DAILY Milk Of Magnesia (Magnesium Hydroxide) 2,400 Mg/10 Ml Oral.susp 2,400 Mg PO DAILY PRN Meclizine Hcl 25 Mg Tablet 25 Mg PO Q8HRS PRN Hydrocodone-Apap 5-325 (Hydrocodone Bit/Acetaminophen) 1 Each Tablet 1 Tab PO PRN Q8HRS PRN Levemir (Insulin Detemir) 100 Unit/1 Ml Vial 20 Unit SQ BID Lasix (Furosemide) 20 Mg Tablet 3 Tab PO DAILY Cyclobenzaprine Hcl 10 Mg Tablet 1 Tab PO TID Fleet Enema (Na Phos,M-B/Na Phos,Di-Ba) 133 Ml Enema 133 Ml RC DAILY PRN Dulcolax (Bisacodyl) 10 Mg Supp.rect 10 Mg RC PRN DAILY PRN Cymbalta (Duloxetine Hcl) 60 Mg Capsule.dr 1 Cap PO BID Cozaar (Losartan Potassium) 100 Mg Tablet 100 Mg PO DAILY Coreg (Carvedilol) 12.5 Mg Tablet 1 Tab PO BID Colace (Docusate Sodium) 100 Mg Capsule 100 Mg PO DAILY Celebrex (Celecoxib) 200 Mg Capsule 1 Cap PO DAILY Aspirin 81 Mg Tab.chew 1 Tab PO DAILY Artificial Tears Drops (Dextran 70/Hypromellose/Pf) 1 Each Droperette 1 Each OP TID Acetaminophen 325 Mg Tablet 650 Mg PO Q6HRS Vitals/I & O Vital Sign - Last 24 Hours 12/07/16 12/07/16 12/07/16 12/07/16 11:56 15:00 17:43 19:10 Temp 98.9 98.2 98.9 98.2 Pulse 73 73 81 Resp 20 20 B/P (MAP) 143/53 (83) 143/53 147/99 (115) Pulse Ox 100 96 97 O2 Delivery Room Air Nasal Cannula Nasal Cannula O2 Flow Rate 3.0 3.0 3.0 12/07/16 12/07/16 12/08/16 12/08/16 20:00 23:10 07:00 08:00 Temp 99.0 99.0 Pulse 71 Resp 18 B/P (MAP) 152/49 (83) Pulse Ox 98 O2 Delivery Nasal Cannula Nasal Cannula Nasal Cannula Room Air O2 Flow Rate 2.0 3.0 3.0 12/08/16 12/08/16 12/08/16 12/08/16 08:14 08:18 08:18 08:18 Pulse 71 71 71 B/P (MAP) 152/49 152/79 152/49 Pulse Ox 98 O2 Delivery Nasal Cannula O2 Flow Rate 3.0 12/08/16 12/08/16 09:15 11:00 Temp 99.1 99.1 Pulse 92 Resp 20 B/P (MAP) 176/35 (82) Pulse Ox 98 100 O2 Delivery Room Air Nasal Cannula O2 Flow Rate 3.0 3.0 Intake and Output 12/07/16 12/07/16 12/08/16 15:00 23:00 07:00 Intake Total 420 ml 400 ml 0 ml Balance 420 ml 400 ml 0 ml CAMERON OLIVEIRA MD Dec 08, 2016 11:33
--- NOTE | 2016-12-08 12:10 | PDOC3 ---
Discharge Summary [facility] Date of Admission: Dec 04, 2016 Discharge Date: Dec 08, 2016 Admitting Diagnosis Acute metabolic encephalopathy POA, in the background of hypoglycemia, hypothermia, baseline dementia, likely psych issues too hypoglycemia in Dm2, insulin req. acute acidosis with hypercarbia POA acute on chronic hypercarbia, Htn, poor control mod malnutrition Hypothermia, resolved Atelectasis possible PNA possible baseline psyche issues with bipolar disorder Problems: Final Diagnosis CONSULTS neuro pulm Brief Hospital Course Ms. Boggs is a 76 old F, from SNF, for AMS, hypothermia, hypoglycemia. PT WAS treatED for possible PNA with iv levaquin , vanco, prednisone, pulm stable. she was very agitated from time to time, likely 2/2 to her baseline dementia, psych bipolar issues. glucose controlled ok with low dose insulin. dc to snf , levaquin x 3ds. dc time 40 min Physical Exam answer some of my questions, knows in [place] [facility], not year, yells sometime agitated better today, calm now General: Alert Heart: Regular rate, Normal S1, Normal S2 Lungs: Other (normal air entry) Abdomen: Normal bowel sounds, Soft Extremities: No clubbing, No cyanosis Skin: No rashes, No significant lesion Patient History: Unknown Problems: Disposition snf CONDITION AT DISCHARGE: Improved Diet ada Scheduled Acetaminophen (Acetaminophen), 650 MG PO Q6HRS, (Reported) Amlodipine Besylate (Norvasc), 10 MG PO DAILY, (Reported) Aspirin (Aspirin), 1 TAB PO DAILY, (Reported) Carvedilol (Coreg), 1 TAB PO BID, (Reported) Celecoxib (Celebrex), 1 CAP PO DAILY, (Reported) Cyclobenzaprine Hcl (Cyclobenzaprine Hcl), 1 TAB PO TID, (Reported) Dextran 70/Hypromellose/Pf (Artificial Tears Drops), 1 EACH OP TID, (Reported) Docusate Sodium (Colace), 100 MG PO DAILY, (Reported) Duloxetine Hcl (Cymbalta), 1 CAP PO BID, (Reported) Ergocalciferol (Vitamin D2) (Vitamin D2), 1 CAP PO WEEKLY, (Reported) Furosemide (Lasix), 3 TAB PO DAILY, (Reported) Insulin Aspart (Novolog Flexpen), 15 UNIT SQ TID, (Reported) Insulin Detemir (Levemir), 20 UNIT SQ BID, (Reported) Linagliptin (Tradjenta), 1 TAB PO DAILY, (Reported) Losartan Potassium (Cozaar), 100 MG PO DAILY, (Reported) Oxcarbazepine (Trileptal), 300 MG PO TID, (Reported) Polyethylene Glycol 3350 (Miralax), 1 PACKET PO DAILY, (Reported) Potassium Chloride (Potassium Chloride), 10 MEQ PO DAILY, (Reported) Scheduled PRN Bisacodyl (Dulcolax), 10 MG RC PRN DAILY PRN for CONSTIPATION, (Reported) Diclofenac Sodium (Voltaren), 1 GM TP TID PRN for PAIN, (Reported) Hydrocodone Bit/Acetaminophen (Hydrocodone-Apap 5-325 ), 1 TAB PO PRN Q8HRS PRN for PAIN, (Reported) Mag Hydrox/Al Hydrox/Simeth (Alum-Mag Hydroxide-Simeth Liq), 360 ML PO Q4HRS PRN for HEARTBURN / GAS, (Reported) Magnesium Hydroxide (Milk Of Magnesia), 2,400 MG PO DAILY PRN for CONSTIPATION, (Reported) Meclizine Hcl (Meclizine Hcl), 25 MG PO Q8HRS PRN for DIZZINESS, (Reported) Na Phos,M-B/Na Phos,Di-Ba (Fleet Enema), 133 ML RC DAILY PRN for CONSTIPATION, ( Reported) Quetiapine Fumarate (Seroquel), 1 TAB PO Q6HRS PRN for AGITATION, (Reported) Miscellaneous Medications Insulin Aspart (Novolog Flexpen), 1 UNIT SQ, (Reported) Follow Up pcp in 2 weeks CHANEL WETZEL MD Dec 08, 2016 12:10
[2016-12-08] MEDS ORDERED: INSULIN DETEMIR 300 UNITS/3 ML INSULN.PEN. SQ SCH (21:00)
[2016-12-09] MEDS ORDERED: ERGOCALCIFEROL (VITAMIN D2) 50,000 UNIT CAPSULE. PO SCH (09:00)
== END 2016-12-08 11:30 | DRG 193 ==
LOC: ER 17:59 → 1 WEST ICU 20:00 → 6 SOUTH 12-05 11:44
PROVIDERS: ADMIT Internal Medicine; ATTEND Internal Medicine
DX: J18.9 Pneumonia, unspecified organism (principal); G93.41 Metabolic encephalopathy; E87.2 Acidosis; E44.0 Moderate protein-calorie malnutrition; J98.11 Atelectasis; E11.649 Type 2 diabetes mellitus with hypoglycemia without coma; E11.40 Type 2 diabetes mellitus with diabetic neuropathy, unspecified; F03.90 Unspecified dementia, unspecified severity, without behavioral disturbance, psychotic disturbance, mood disturbance, and anxiety; I11.0 Hypertensive heart disease with heart failure; K21.9 Gastro-esophageal reflux disease without esophagitis; M81.0 Age-related osteoporosis without current pathological fracture; F41.9 Anxiety disorder, unspecified; K59.00 Constipation, unspecified; M19.90 Unspecified osteoarthritis, unspecified site; X58.XXXA Exposure to other specified factors, initial encounter; R40.2430 Glasgow coma scale score 3-8, unspecified time; F31.9 Bipolar disorder, unspecified; I50.9 Heart failure, unspecified; Z66 Do not resuscitate; T68.XXXA Hypothermia, initial encounter; Z79.4 Long term (current) use of insulin; Z83.3 Family history of diabetes mellitus; Z87.891 Personal history of nicotine dependence; Z90.49 Acquired absence of other specified parts of digestive tract; Z99.3 Dependence on wheelchair; Z90.710 Acquired absence of both cervix and uterus; Z68.36 Body mass index [BMI] 36.0-36.9, adult; Z79.899 Other long term (current) drug therapy; Z79.2 Long term (current) use of antibiotics; Z79.1 Long term (current) use of non-steroidal anti-inflammatories (NSAID); Z79.82 Long term (current) use of aspirin
CPT/HCPCS: 36415; 36600; 70450; 71010; 80048; 80053; 80202; 81001; 82607; 82746; 82805; 82962; 84484; 85007; 85027; 85651; 87040; 87086; 87641; 93005; 94640; 94760; 96361; 96374; A6539; J0456; J1630; J1650; J1815; J1956; J2060; J2930; J3370; J3490; J7040; J7042; J7050; J7512; J7620; J7626; 99285-25; J7030